=== PATIENT | female | born 1935 | race Caucasian/White ===

== ENCOUNTER 2024-08-11 11:37 | Inpatient (IN) | payer MEDICARE, SELFPAY ==
[2024-08-11] VITALS (14 sets, daily range): BP systolic 127–167; BP diastolic 55–85; PULSE 105–117; RESP 17–27; TEMP 37.1–37.4; O2SAT 92–96; BMI 37.4
--- NOTE | ~2024-08-11 | CT_ITS ---
CT soft tissue neck wo con Ordering provider: Dea Cornejo NP History: 89 years Female with . Neck pain and SOB . Comparison: None. Technique: CT soft tissues neck was performed without contrast. . Automated exposure control and ite rative reconstruction technique were employed. The dose-length product was 593.80 mGy-cm. Findings: LOWER HEAD: The visualized brain parenchyma, optic globes/orbits and mastoids are normal. Left maxi llary and left ethmoid sinus disease. Otherwise, The visualized paranasal sinuses are well aerated. SALIVARY GLANDS: Normal. THYROID: Normal. SUPRAHYOID DEEP SPACES: Small parapharyngeal lymph nodes are noted. The CAROTID ARTERIES: Bilateral carotid atherosclerotic changes. JUGULAR VEINS: Normal. TONSILS: Normal. ORAL CAVITY: normal as visualized. PHARYNX, LARYNX AND TRACHEA: Patent and normal. No prevertebral soft tissue swelling. SUPERFICIAL SOFT TISSUES: Normal. No lymphadenopathy or neck mass. THORACIC INLET/VISUALIZED UPPER CHEST: Tracheomalacia and bronchomalacia is noted. Bilateral Pleural effusion with adjacent atelectasis. Infiltrate in the right upper lobe posteriorly. Possible nodule o r atelectasis versus pneumonia in the left apical area. 3 months follow-up advised. Right paratrachea l lymph node is seen measuring 1.5 cm. SKELETAL: Age appropriate degenerative changes superior with narrowing of the disc spaces at all leve ls. Multilevel facet joint disease. IMPRESSION: 1. Bilateral pleural effusion with adjacent atelectasis versus pneumonia. 2. Pneumonia in the right upper lobe posteriorly. 3. Lymphadenopathy in the mediastinum. 4. Severe degenerative changes of the spine. 5. Sinusitis in the left maxillary and ethmoid sinuses. 6. Atherosclerotic changes of the carotid arteries. 7. Tracheomalacia and bronchomalacia. Reviewed, dictated and finalized at location A. PORTER
--- NOTE | ~2024-08-11 | XR_ITS ---
EXAMINATION: XR chest 1V portable DATE: 08/16/2024 09:54 INDICATION: Shortness of breath. TECHNIQUE: A single frontal view of the chest was obtained. COMPARISON: Chest 2 views 08/11/2024 FINDINGS: The patient is rotated to her left. There is a diffuse interstitial pattern in the lungs. T here are airspace opacities in the mid and lower lung zones. No pleural effusion or pneumothorax. The heart size is normal. IMPRESSION: 1. Worsened diffuse lung disease, consistent with pulmonary edema versus pneumonia. Reviewed, dictated and finalized at location A. RITY ANALYST IMPRESSION: 1. Worsened diffuse lung disease, consistent with pulmonary edema versus pneumo jason.
--- NOTE | ~2024-08-11 | XR_ITS ---
XR chest 1V portable 08/17/2024 08:39 Indication: RSV pneumonia Procedure: AP portable chest Comparison: 08/16/2024 and 08/11/2024 Findings: Diffuse bilateral interstitial infiltrates with peribronchial thickening, improved compared with 08/16/2024, likely edema. No significant effusion. No pneumothorax. There are deformities of jose luis th shoulders, likely related to prior trauma and/or advanced degenerative change. Impression: 1: Improved bilateral interstitial infiltrates, likely edema. Reviewed, dictated and finalized at location B. SERVICE AGENT Impression: 1: Improved bilateral interstitial infiltrates, likely edema.
--- NOTE | ~2024-08-11 | XR_ITS ---
EXAMINATION: XR chest 2V DATE: 08/11/2024 15:32 INDICATION: Cough. Dyspnea. TECHNIQUE: Frontal and lateral views of the chest were obtained. COMPARISON: None. FINDINGS: There are airspace opacities in the mid and lower lung zones. No pleural effusion or pneumo thorax. The heart size is normal. 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 IMPRESSION: 1. Airspace opacities in the mid and lower lung zones, consistent with atelectasis versus pneumonia v ersus chronic lung disease. Reviewed, dictated and finalized at location A. NICAL OPERATIONS VICE PRESIDENT IMPRESSION: 1. Airspace opacities in the mid and lower lung zones, consistent with atelecta sis versus pneumonia versus chronic lung disease.
--- NOTE | 2024-08-11 15:02 | ECG_ITS ---
Test Date: 2024-08-11 19:44:08 Measurements Intervals Herod Rate: 102 P: 68 OH: 162 QRS: 22 QRSD: 75 T: 55 QT: 320 QTc: 418 Interpretive Statements SINUS TACHYCARDIA WITH OCCASIONAL VENTRICULAR PREMATURE COMPLEXES WITH OCCASIONAL SUPRAVENTRICULAR PREMATURE COMPLEXES LOW QRS VOLTAGE IN PRECORDIAL LEADS [QRS DEFLECTION < 1.0 mV IN CHEST LEADS] MODERATE ST DEPRESSION [0.05+ mV ST DEPRESSION] No previous ECG available for comparison Electronically Signed On 08-15-2024 17:49:09 [employer] SCI[employer] by Joyce Arevalo M.D.
--- NOTE | 2024-08-11 15:02 | ED_ITS ---
HPI - URI/Sore Throat General Chief Complaint: Upper Respiratory Infection <Genesis Cruz PA-C - Last Filed: 08/11/24 15:03> Stated Complaint: all over crud <Genesis Cruz PA-C - Last Filed: 08/11/24 15:03> Time Seen by Provider: 08/11/24 18:28 <Genesis Cruz PA-C - Last Filed: 08/11/24 15:03> Focused HPI: 89-year-old female presents with her for cough, congestion and generalized malaise for 2 weeks. Patient went to her PCPs office today was found to be febrile and was advised to come to the ER for further evaluation. She is reporting a nonproductive cough for 2 weeks but it did become productive yesterday. She has not taken any antipyretics prior to arrival. She denies chest pain, shortness of breath, abdominal pain, nausea vomiting or diarrhea. She is reporting dysuria. Also states she is having lower extremity edema but is unsure if it is a change from her baseline. GENERAL: Ill-appearing, well-nourished, and in no acute distress. HEAD: Normocephalic, atraumatic. CHEST: Wheezing throughout all lung marinelli, no respiratory distress. Satting 95% on room air. 3+ pitting edema bilateral lower extremities, Ariel wraps applied to lower legs HEART: Regular rate and rhythm.? NEURO: ?Alert and oriented x3. Patient screened in triage and initial orders placed.? ?Additional care and disposition to be based upon?diagnostic testing and treatment. <Genesis Cruz PA-C - Last Filed: 08/11/24 15:03> History of Present Illness HPI Narrative: Agree with the HPI above <Chato Dhaliwal MD - Last Filed: 08/11/24 19:58> Related Data Home Medications: Home Medications ?Medication ?Instructions ?Recorded ?Confirmed ?Last Taken ?Type cholecalciferol (vitamin D3) 250 250 mcg PO DAILY 06/04/23 06/13/24 Unknown History mcg (10,000 unit) capsule coQ10 (ubiquinol) 100 mg capsule 200 mg PO BID 06/04/23 06/13/24 Unknown History (Qunol Rick CoQ10) hydrochlorothiazide 25 mg tablet 25 mg PO DAILY 06/04/23 06/13/24 Unknown History metoprolol succinate 25 mg 25 mg PO DAILY 06/04/23 06/13/24 Unknown History tablet,extended release 24 hr potassium chloride 10 mEq 10 meq PO DAILY 06/04/23 06/13/24 Unknown History capsule,extended release pravastatin 80 mg tablet 80 mg PO QHS 06/04/23 06/13/24 Unknown History vitamin E (dl, acetate) 180 mg 180 mg PO DAILY 06/04/23 06/13/24 Unknown History (400 unit) capsule coenzyme [id number] lipoic acid-vit 2 cap PO DAILY 12/08/23 06/13/24 Unknown History E 30 mg-50 mg-100 unit capsule (Q-GEL with Alpha Lipoic Acid) alpha lipoic acid 100 mg capsule 100 mg PO DAILY 06/13/24 06/13/24 Unknown History mecobalamin (vitamin B12) 1 tablet PO .every other day 06/13/24 06/13/24 Unknown History <Genesis Cruz PA-C - Last Filed: 08/11/24 15:03> Allergies/Adverse Reactions: Allergies Allergy/AdvReac Type Severity Reaction Status Date / Time lidocaine (From Xylocaine) Allergy Severe Unresponsiv Verified 08/11/24 11:43 e <Genesis Cruz PA-C - Last Filed: 08/11/24 15:03> Review of Systems 2 Review of Systems: as reviewed above in HPI <Chato Dhaliwal MD - Last Filed: 08/11/24 19:58> [facility] Past Medical History Medical History: Medical History Hyperlipidemia Hypertension Thyroid disorder Stroke Arthritis Diabetes Allergies <Genesis Cruz PA-C - Last Filed: 08/11/24 15:03> Surgical History Surgical History: Surgical History History of cataract surgery (~2020) History of section History of back surgery <Genesis Cruz PA-C - Last Filed: 08/11/24 15:03> Family History Family History: Family History Father Heart disease Hypertension Other Diabetes mellitus <Genesis Cruz PA-C - Last Filed: 08/11/24 15:03> Social History Social History: Social History Smoking status: Never smoker Alcohol intake: never Substance use: never Do You Feel Safe in your Home?: Yes Lack of Transportation: No Lack of Food: Never True Current Housing: I Have Housing Concerned About Future Housing: No Difficulty Paying Gas/Electric Bills: No Difficulty Paying for Meds: No Currently Unemployed: No Education: Bachelor's Degree Difficulty w/ Childcare or Family Care: No <Genesis Cruz PA-C - Last Filed: 08/11/24 15:03> Exam 2 Narrative: GENERAL: Ill-appearing, productive cough throughout the examination, well- developed, answers all questions appropriately HEAD: [Normocephalic, atraumatic.] EYES: [PERRLA and EOMI.] ENT: Nares clear, no rhinorrhea or epistaxis. Mucous membranes dry. NECK: Supple. CHEST: coarse bilateral breath sounds in the bases, some tachypnea noted, no accessory muscle use respiratory distress, coughing actively. HEART: [Regular rate and rhythm]. No murmur heard. [Normal peripheral pulses.] ABDOMEN: [Soft, nondistended], [nontender], [No rigidity or guarding] EXTREMITIES: Normal range of motion. 2+ pitting edema SKIN: Warm, dry, no rash. NEURO: [No focal deficits]. Alert and oriented [x3.] PSYCH: [Normal mood and affect.] <Chato Dhaliwal MD - Last Filed: 08/11/24 19:58> Course Vital Signs Vital signs: Vital Signs Temperature 37.2 C 08/11/24 11:40 Pulse Rate 117 H 08/11/24 11:40 Respiratory Rate 22 H 08/11/24 11:40 Blood Pressure 141/64 H 08/11/24 11:40 Pulse Oximetry 95 08/11/24 11:40 Oxygen Delivery Room Air 08/11/24 11:40 Temperature 37.4 C 08/11/24 18:40 Pulse Rate 107 H 08/11/24 18:40 Respiratory Rate 20 08/11/24 18:40 Blood Pressure 167/85 H 08/11/24 18:40 Pulse Oximetry 94 08/11/24 18:40 Oxygen Delivery Room Air 08/11/24 18:40 <Genesis Cruz PA-C - Last Filed: 08/11/24 15:03> Vital Signs Temperature 37.2 C 08/11/24 11:40 Pulse Rate 117 H 08/11/24 11:40 Respiratory Rate 22 H 08/11/24 11:40 Blood Pressure 141/64 H 08/11/24 11:40 Pulse Oximetry 95 08/11/24 11:40 Oxygen Delivery Room Air 08/11/24 11:40 Temperature 37.4 C 08/11/24 18:40 Pulse Rate 107 H 08/11/24 18:40 Respiratory Rate 20 08/11/24 18:40 Blood Pressure 167/85 H 08/11/24 18:40 Pulse Oximetry 94 08/11/24 18:40 Oxygen Delivery Room Air 08/11/24 18:40 <Chato Dhaliwal MD - Last Filed: 08/11/24 19:58> MDM - URI/Sore Throat MDM Narrative Medical decision making narrative: 89-year-old female presenting from her primary care provider's office for concerns of a upper respiratory tract infection versus pneumonia. Patient has been having a nonproductive cough for last 2 weeks and then a productive cough for last 2 days associated with congestion, fever, hypoxia in the office. Patient was noted to be febrile 101.9? F at her PCPs office and hypoxic to 88% consistently. She is afebrile here at 37.4? C slightly tachycardic with pulse of 117 and tachypneic at 22. Blood pressure within normal limits 141/64. Presently she is saturating well on room air but does have very coarse breath sounds in the bilateral bases and some tachypnea. Concern presently is for pneumonia given her history, COVID flu or influenza given the season and recent exposure to sick contacts at her household. workup was ordered including two- view chest x-ray, CBC, CMC, BNP, EKG, COVID fluid RSV swabs. I independently reviewed patient's chest x-ray and I do see bilateral airspace opacities which likely represent pneumonia in her clinical setting. She was started on Rocephin and doxycycline for community-acquired pneumonia given her lack of exposures to the healthcare system and low drip score. She was given a fluid bolus for hydration. Reassess frequently. Patient requires admission to the hospital after completion workup. BNP came back elevated 4500, no history of heart failure, will obtain echocardiogram on inpatient basis. leukocytosis of 12.3, hemoglobin 11.2, normal platelets. Electrolyte panel largely within normal limits, normal renal function panel. Glucose slightly elevated 212, lipase 67. COVID fluid RSV swabs came back positive for RSV. EKG was independently reviewed and shows sinus tachycardia with no acute ST segment elevations or depressions concerning for ischemia. I discussed the case with the inpatient hospitalist Dr. Strange who [facility] continued treatment of her pneumonia and RSV as well as further evaluation including blood cultures as she does meet sepsis criteria. 2D echocardiogram also obtained. Patient was evaluated frequently and had improvement her heart rate and tachypnea. Not requiring any oxygen and was not hypoxic throughout her ED visit. <Chato Dhaliwal MD - Last Filed: 08/11/24 19:58> Differential Diagnosis Differential diagnosis: Likely upper respiratory infection, viral infection, bronchitis, influenza and other <Chato Dhaliwal MD - Last Filed: 08/11/24 19:58> Medical Records Attestation: I reviewed the patient's medical records. <Chato Dhaliwal MD - Last Filed: 08/11/24 19:58> Lab Data Attestation: I reviewed the patient's lab results. <Chato Dhaliwal MD - Last Filed: 08/11/24 19:58> Result diagrams: 08/11/24 18:23 08/11/24 18:23 <Genesis Cruz PA-C - Last Filed: 08/11/24 15:03> Labs: Lab Results 08/11/24 Range/Units 18:23 WBC 12.3 H (4.5-10.0) K/mm3 RBC 3.46 L (4.2-5.4) M/mm3 Hgb 11.2 L (12.0-15.0) g/dL Hct 33.2 L (37.0-47.0) % MCV 96.0 (80-100) fl MCH 32.4 (26-34) pg MCHC 33.7 (32-36) g/dl RDW 13.4 (11.5-14.5) % Plt Count 259 (150-375) k/mm3 MPV 10.4 (7.4-10.4) fl Immature Gran % (Auto) Not Reportable Neut % (Auto) Not Reportable Lymph % (Auto) Not Reportable Pratt % (Auto) Not Reportable Eos % (Auto) Not Reportable Baso % (Auto) Not Reportable Lymph # (Auto) Not Reportable Pratt # (Auto) Not Reportable Eos # (Auto) Not Reportable Baso # (Auto) Not Reportable Abs Immat Gran (auto) Not Reportable Absolute Neuts (auto) Not Reportable Absolute Nucleated RBC Not Reportable Total Counted 100 Neutrophils % (Manual) 73 (46-73) % Band Neutrophils % 5 (0-6) % Lymphocytes % (Manual) 13 L (18-44) % Monocytes % (Manual) 8 (3-9) % Metamyelocytes % 1 % Nucleated RBC % Not Reportable Abs Neuts (Manual) 9.59 H (1.7-7.2) K/mm3 Abs Lymphs (Manual) 1.59 (1.1-4.5) K/mm3 Abs Monocytes (Manual) 0.98 H (0.1-0.90) K/mm3 Platelet Estimate Adequate (Adequate) Schistocytes None seen Sodium 133 L (137-145) mmol/L Potassium 3.7 (3.4-5.0) mmol/L Chloride 100 (98-107) mmol/L Carbon Dioxide 28 (22-30) mmol/L Anion Gap 5 (4-12) mmol/L BUN 23 H (7-17) mg/dL Creatinine 0.80 (0.7-1.0) mg/dL Estim Creat Clear Calc 39 ml/min Estimated GFR > 60 (59 - ) Glucose 212 H (65-110) mg/dL Calcium 9.1 (8.4-10.2) mg/dL Total Bilirubin 0.7 (0.2-1.3) mg/dL AST 25 (14-36) U/L ALT 19 (6-35) U/L Alkaline Phosphatase 95 (38-126) U/L NT-Pro-B Natriuret Pep 4250 H (19.9-100) pg/mL Total Protein 7.0 (6.3-8.2) g/dL Albumin 3.8 (3.5-5.1) g/dL Lipase 67 (23-300) U/L Influenza A (RT-PCR) Negative (Negative) Influenza B (RT-PCR) Negative (Negative) RSV (RT-PCR) Positive A (Negative) SARS-CoV-2 RNA (RT-PCR) Negative (Negative) <Genesis Cruz PA-C - Last Filed: 08/11/24 15:03> Lab Results 08/11/24 Range/Units 18:23 WBC 12.3 H (4.5-10.0) K/mm3 RBC 3.46 L (4.2-5.4) M/mm3 Hgb 11.2 L (12.0-15.0) g/dL Hct 33.2 L (37.0-47.0) % MCV 96.0 (80-100) fl MCH 32.4 (26-34) pg MCHC 33.7 (32-36) g/dl RDW 13.4 (11.5-14.5) % Plt Count 259 (150-375) k/mm3 MPV 10.4 (7.4-10.4) fl Immature Gran % (Auto) Not Reportable Neut % (Auto) Not Reportable Lymph % (Auto) Not Reportable Pratt % (Auto) Not Reportable Eos % (Auto) Not Reportable Baso % (Auto) Not Reportable Lymph # (Auto) Not Reportable Pratt # (Auto) Not Reportable Eos # (Auto) Not Reportable Baso # (Auto) Not Reportable Abs Immat Gran (auto) Not Reportable Absolute Neuts (auto) Not Reportable Absolute Nucleated RBC Not Reportable Total Counted 100 Neutrophils % (Manual) 73 (46-73) % Band Neutrophils % 5 (0-6) % Lymphocytes % (Manual) 13 L (18-44) % Monocytes % (Manual) 8 (3-9) % Metamyelocytes % 1 % Nucleated RBC % Not Reportable Abs Neuts (Manual) 9.59 H (1.7-7.2) K/mm3 Abs Lymphs (Manual) 1.59 (1.1-4.5) K/mm3 Abs Monocytes (Manual) 0.98 H (0.1-0.90) K/mm3 Platelet Estimate Adequate (Adequate) Schistocytes None seen Sodium 133 L (137-145) mmol/L Potassium 3.7 (3.4-5.0) mmol/L Chloride 100 (98-107) mmol/L Carbon Dioxide 28 (22-30) mmol/L Anion Gap 5 (4-12) mmol/L BUN 23 H (7-17) mg/dL Creatinine 0.80 (0.7-1.0) mg/dL Estim Creat Clear Calc 39 ml/min Estimated GFR > 60 (59 - ) Glucose 212 H (65-110) mg/dL Calcium 9.1 (8.4-10.2) mg/dL Total Bilirubin 0.7 (0.2-1.3) mg/dL AST 25 (14-36) U/L ALT 19 (6-35) U/L Alkaline Phosphatase 95 (38-126) U/L NT-Pro-B Natriuret Pep 4250 H (19.9-100) pg/mL Total Protein 7.0 (6.3-8.2) g/dL Albumin 3.8 (3.5-5.1) g/dL Lipase 67 (23-300) U/L Influenza A (RT-PCR) Negative (Negative) Influenza B (RT-PCR) Negative (Negative) RSV (RT-PCR) Positive A (Negative) SARS-CoV-2 RNA (RT-PCR) Negative (Negative) <Chato Dhaliwal MD - Last Filed: 08/11/24 19:58> Imaging Data Attestation: I personally reviewed and interpreted this imaging study as follows: < Chato Dhaliwal MD - Last Filed: 08/11/24 19:58> My impression: Impressions Chest X-Ray 08/11/24 15:32 IMPRESSION: 1. Airspace opacities in the mid and lower lung zones, consistent with atelectasis versus pneumonia versus chronic lung disease. <Chato Dhaliwal MD - Last Filed: 08/11/24 19:58> Critical Care Time Critical Care Time Critical Care Time: Yes <Chato Dhaliwal MD - Last Filed: 08/11/24 19:58> Total Critical Care Time: 40 <Chato Dhaliwal MD - Last Filed: 08/11/24 19:58> Discharge Plan Discharge Clinical Impression: Community acquired pneumonia, Respiratory syncytial virus (RSV), Elevated brain natriuretic peptide (BNP) level <Genesis Cruz PA-C - Last Filed: 08/11/24 15:03> Patient Disposition: Still a Patient <Genesis Cruz PA-C - Last Filed: 08/11/24 15:03> Condition: Stable <Genesis Cruz PA-C - Last Filed: 08/11/24 15:03> Patient Language: Namibian <Genesis Cruz PA-C - Last Filed: 08/11/24 15:03> Prescriptions: No Action metoprolol succinate 25 mg tablet extended release 24 hr 25 mg PO DAILY pravastatin 80 mg tablet 80 mg PO QHS hydrochlorothiazide 25 mg tablet 25 mg PO DAILY potassium chloride 10 mEq capsule, extended release 10 meq PO DAILY coQ10 (ubiquinol) [Qunol Rick CoQ10] 100 mg capsule 200 mg PO BID cholecalciferol (vitamin D3) 250 mcg (10,000 unit) capsule 250 mcg PO DAILY vitamin E (dl, acetate) 180 mg (400 unit) capsule 180 mg PO DAILY Q-GEL with Alpha Lipoic Acid 30-50-100 mg-mg-unit capsule 2 cap PO DAILY mecobalamin (vitamin B12) 1 tablet PO .every other day alpha lipoic acid 100 mg capsule 100 mg PO DAILY (DME) OneTouch Verio test strips Strip See Rx Instructions .Route Qty: 100 4RF Rx Instructions: To check gluose three times daily pioglitazone 45 mg tablet 45 mg PO DAILY Qty: 90 1RF levothyroxine 25 mcg tablet 25 mcg PO DAILY Qty: 90 1RF <Genesis Cruz PA-C - Last Filed: 08/11/24 15:03> Follow-up/Referrals: Antoine Belle DO [Primary Care Provider] - <Genesis Cruz PA-C - Last Filed: 08/11/24 15:03> Time of Disposition: 19:58 <Genesis Cruz PA-C - Last Filed: 08/11/24 15:03> 19:58 <Chato Dhaliwal MD - Last Filed: 08/11/24 19:58>
[2024-08-11 18:29] LABS: Hematocrit 33.2 % (37.0-47.0); Hemoglobin 11.2 g/dL (12.0-15.0); Mean Corpuscular HGB Conc 33.7 g/dl (32-36); Mean Corpuscular Hemoglobin 32.4 pg (26-34); Mean Platelet Volume 10.4 fl (7.4-10.4); Platelet Count Result 259 k/mm3 (150-375); Red Blood Count 3.46 M/mm3 (4.2-5.4); Red Cell Distribution Width 13.4 % (11.5-14.5); White Blood Count 12.3 K/mm3 (4.5-10.0)
[2024-08-11 18:42] LABS: Alanine Aminotransferase 19 U/L (6-35); Albumin Level 3.8 g/dL (3.5-5.1); Alkaline Phosphatase 95 U/L (38-126); Anion Gap 5 mmol/L (4-12); Aspartate Amino Transferase 25 U/L (14-36); Bilirubin,Total 0.7 mg/dL (0.2-1.3); Blood Urea Nitrogen 23 mg/dL (7-17); Calcium 9.1 mg/dL (8.4-10.2); Carbon Dioxide 28 mmol/L (22-30); Chloride 100 mmol/L (98-107); Estimated CRCL calculation 39 ml/min; Estimated Glomerular Filt Rate > 60; Glucose 212 mg/dL (65-110); Lipase 67 U/L (23-300); Potassium 3.7 mmol/L (3.4-5.0); Sodium 133 mmol/L (137-145)
[2024-08-11 18:44] LABS: Band Neutrophils Percent 5 % (0-6); Lymphocytes Absolute Manual 1.59 K/mm3 (1.1-4.5); Lymphocytes Percent Manual 13 % (18-44); Metamyelocytes Percent 1 %; Monocytes Absolute Manual 0.98 K/mm3 (0.1-0.90); Monocytes Percent Manual 8 % (3-9); Neutrophils Absolute Manual 9.59 K/mm3 (1.7-7.2); Neutrophils Percent Manual 73 % (46-73); Platelet Estimate Adequate (Adequate); Total Cells Counted 100
[2024-08-11 18:45] LABS: Schistocytes None Seen
[2024-08-11 18:57] LABS: NT Pro B Type Natriuretic Pept 4250 pg/mL (19.9-100)
[2024-08-11] MEDS: LACTATED RINGERS 1,000 ML 999 ML IV CONT (19:03)
[2024-08-11] MEDS: cefTRIAXone 2 GM/NS 100 ML 2 GM/100 ML BAG IVPB (19:04)
[2024-08-11 19:05] LABS: Influenza A QL RT-PCR Negative (Negative); Influenza B QL RT-PCR Negative (Negative); RSV RNA, RT-PCR Positive (Negative); SARS-CoV-2 RNA PCR Negative (Negative)
[2024-08-11] MEDS: DOXYCYCLINE 100 MG/NS 100 ML 100 MG/100 ML BAG IVPB (19:45)
--- NOTE | 2024-08-11 22:38 | PM.IMHP ---
H&P: HPI History of Present Illness Date/Time: 08/11/24 22:38 Chief Complaint: Fever, low oxygen her saturation Narrative: 89-year-old female with a past medical history essential hypertension, hypothyroidism due to thyroidectomy from thyroid cancer, diabetes and CVA among other medical conditions who presented to the from primary care physician's office due to fever and and low oxygen saturations The patient is only oriented to her name and the fact that she is in the hospital. She is unable to provide significant medical history. Her helps fries some medical history but is also only a fair historian. The patient has been having cough for 10-14 days. She has not had worsening cough and worsening confusion. It sounds like the patient has intermittent confusion at baseline and but has better recall of her long-term memories and poor short-term memory. However denies history of dementia. He also reports that the patient has chronic lower extremity swelling in he uses a combination of various compression devices on her lower extremities help with the edema. He denies a known history of heart failure in states that her lower extremity edema is due to her hypertension. He states that they were around his son approximately 14 days ago after which time there son and grandson came down with a viral illness. The patient's came down ill a couple of days later. Since she has been ill she has become more confused. Her cough is gotten progressively worse. She did have a low-grade temperature at home and was directed to come to the ER by her primary care provider. By the time she arrived to the ER temperature was 101.9?. She did not receive any antipyretics at home. She has had decreased appetite. Patient does have chronic urinary incontinence in usually wears 2 incontinence products to maintain cleanliness at home. Review of Systems Review of Systems: Review of systems was limited due to the patient's confusion. [facility] Past Medical History Medical History (Updated 08/12/24 @ 08:49 by Chanda Strange DO) Thyroid cancer B12 deficiency Hyperlipidemia Hypertension Stroke Arthritis Diabetes Allergies Surgical History Surgical History (Updated 08/11/24 @ 22:43 by Chanda Strange DO) History of thyroidectomy History of cataract surgery (~2020) History of section History of back surgery Family History Family History Father Heart disease Hypertension Other Diabetes mellitus Social History Social History (Updated 08/12/24 @ 08:51 by Chanda Strange, ) Social History: The patient lives with her of 67 years. They raised 5 sons. The patient was a homemaker and artist. The she is a lifelong nonsmoker and does not drink alcohol or use illicit substances. She ambulates with a walker. Code status: Full code Surrogate decision maker: Matt Dillard () Smoking status: Never smoker Alcohol intake: never Substance use: never Substance use type: does not use Do You Feel Safe in your Home?: Yes Lack of Transportation: No Lack of Food: Never True Current Housing: I Have Housing Concerned About Future Housing: No Difficulty Paying Gas/Electric Bills: No Difficulty Paying for Meds: No Currently Unemployed: No Education: Bachelor's Degree Difficulty w/ Childcare or Family Care: No Spiritual care concerns: No Meds Home Medications and Allergies Home Medications ?Medication ?Instructions ?Recorded ?Confirmed ?Type cholecalciferol (vitamin D3) 250 250 mcg PO DAILY 06/04/23 08/11/24 History mcg (10,000 unit) capsule coQ10 (ubiquinol) 100 mg capsule 200 mg PO BID 06/04/23 08/11/24 History (Qunol Rick CoQ10) hydrochlorothiazide 25 mg tablet 25 mg PO DAILY 06/04/23 08/11/24 History metoprolol succinate 25 mg 25 mg PO DAILY 06/04/23 08/11/24 History tablet,extended release 24 hr potassium chloride 10 mEq 10 meq PO DAILY 06/04/23 08/11/24 History capsule,extended release pravastatin 80 mg tablet 80 mg PO QHS 06/04/23 08/11/24 History vitamin E (dl, acetate) 180 mg 180 mg PO DAILY 06/04/23 08/11/24 History (400 unit) capsule coenzyme I29-[id number] lipoic acid-vit 2 cap PO DAILY 12/08/23 08/11/24 History E 30 mg-50 mg-100 unit capsule (Q-GEL with Alpha Lipoic Acid) pioglitazone 45 mg tablet 45 mg PO DAILY #90 tabs 05/24/24 08/11/24 Rx levothyroxine 25 mcg tablet 25 mcg PO DAILY #90 tabs 06/01/24 08/11/24 Rx alpha lipoic acid 100 mg capsule 100 mg PO DAILY 06/13/24 08/11/24 History mecobalamin (vitamin B12) 1 tablet PO .every other day 06/13/24 08/11/24 History Allergies Allergy/AdvReac Type Severity Reaction Status Date / Time lidocaine (From Xylocaine) Allergy Severe Unresponsiv Verified 08/11/24 11:43 e Vital Signs Vital Signs - 24 hr 08/11/24 11:40 08/11/24 15:02 08/11/24 18:40 Temperature 98.9 F 99 F Pulse Rate 117 H 106 H Respiratory Rate 22 H Blood Pressure 141/64 H 128/55 L Pulse Oximetry 95 92 Oxygen Delivery Room Air Room Air Oxygen Flow Rate 08/11/24 18:40 08/11/24 19:02 08/11/24 20:00 Temperature 99.3 F Pulse Rate 107 H 113 H 105 H Respiratory Rate 20 22 H 27 H Blood Pressure 167/85 H 152/77 H Pulse Oximetry 94 92 95 Oxygen Delivery Oxygen Flow Rate 08/11/24 20:02 08/11/24 20:15 08/11/24 20:30 Temperature Pulse Rate 106 H 114 H 111 H Respiratory Rate 26 H 19 26 H Blood Pressure 133/62 Pulse Oximetry 93 Oxygen Delivery Oxygen Flow Rate 08/11/24 21:02 08/11/24 21:30 08/11/24 22:00 Temperature Pulse Rate 109 H 112 H 108 H Respiratory Rate 17 27 H 24 H Blood Pressure 141/60 H Pulse Oximetry 92 93 92 Oxygen Delivery Oxygen Flow Rate 08/11/24 22:36 Temperature Pulse Rate Respiratory Rate Blood Pressure Pulse Oximetry 94 Oxygen Delivery Nasal Cannula Oxygen Flow Rate 2 Exam Narrative: Weight 81.8 kg BMI 35.2 Const: Other: Acutely ill-appearing, obese, elderly, debilitated HENMT: Other: Dry mucous membranes, upper and lower dentures in place, crowded posterior oropharynx Eyes: Other: Positive conjunctival pallor, evidence of bilateral lens implants, extraocular movements intact Neck: Other: Large neck circumference, no JVD, trachea midline Resp: Other: Shallow respirations, decreased breath sounds at the bases, tachypnea Cardio: Other: Sinus tachycardia heart rates in the low 100s, 2+ bilateral radial pedal pulses, no obvious murmur GI: Other: Obese, distended, nontender, positive bowel sounds : Other: Incontinent of urine, pure wick catheter in place Skin: Other: Generalized pallor, non jaundice, no petechia, no foot wounds Neuro: Other: Patient is alert oriented to name and place, confused as to the month and the year, unable to provide meaningful medical history, recognizes her , has fair recall of distant events, follow simple commands, no localizing neurologic deficits noted but exam limited due to patient condition and confusion Extrem: Other: 1+ pitting edema up through the calves bilaterally, 4/5 education coordinator strength bilaterally Psych: Other: Pleasantly confused, cooperative, anxious H&P: Results Labs Labs: Laboratory Tests 08/11/24 18:23 08/11/24 18:23 08/11/24 18:23 WBC 12.3 H RBC 3.46 L Hgb 11.2 L Hct 33.2 L MCV 96.0 MCH 32.4 MCHC 33.7 RDW 13.4 Plt Count 259 MPV 10.4 Immature Gran % (Auto) Not Reportable Neut % (Auto) Not Reportable Lymph % (Auto) Not Reportable [place] % (Auto) Not Reportable Eos % (Auto) Not Reportable Baso % (Auto) Not Reportable Lymph # (Auto) Not Reportable [place] # (Auto) Not Reportable Eos # (Auto) Not Reportable Baso # (Auto) Not Reportable Abs Immat Gran (auto) Not Reportable Absolute Neuts (auto) Not Reportable Absolute Nucleated RBC Not Reportable Total Counted 100 Neutrophils % (Manual) 73 Band Neutrophils % 5 Lymphocytes % (Manual) 13 L Monocytes % (Manual) 8 Metamyelocytes % 1 Nucleated RBC % Not Reportable Abs Neuts (Manual) 9.59 H Abs Lymphs (Manual) 1.59 Abs Monocytes (Manual) 0.98 H Platelet Estimate Adequate Schistocytes None seen Sodium 133 L Potassium 3.7 Chloride 100 Carbon Dioxide 28 Anion Gap 5 BUN 23 H Creatinine 0.80 Estim Creat Clear Calc 39 Estimated GFR > 60 Glucose 212 H Calcium 9.1 Total Bilirubin 0.7 AST 25 ALT 19 Alkaline Phosphatase 95 NT-Pro-B Natriuret Pep 4250 H Total Protein 7.0 Albumin 3.8 Lipase 67 Influenza A (RT-PCR) Negative Influenza B (RT-PCR) Negative RSV (RT-PCR) Positive A SARS-CoV-2 RNA (RT-PCR) Negative Impressions Chest X-Ray 08/11/24 15:32 IMPRESSION: 1. Airspace opacities in the mid and lower lung zones, consistent with atelectasis versus pneumonia versus chronic lung disease. EKG: Sinus tachycardia rate 102 occasional ventricular premature complexes occasional supraventricular premature complexes low-voltage QRS in precordial leads EKG read per the machine states ST depression but this is not appreciated at the time of my review appears more due to artifact he QTC is 418 All imaging and EKGs personally reviewed and interpreted. And unless stated otherwise agree with radiologic and cardiology interpretation. Assessment and Plan Assessment and plan (1) Respiratory syncytial virus (RSV): Qualifiers: RSV infection type: pneumonia Qualified Code(s): J12.1 - Respiratory syncytial virus pneumonia Code(s): B33.8 - Other specified viral diseases Status: Acute (2) Sepsis: Qualifiers: Acute respiratory failure type: with hypoxia Sepsis acute organ dysfunction status: with acute organ dysfunction Sepsis type: sepsis due to unspecified organism Severe sepsis acute organ dysfunction type: acute respiratory failure Severe sepsis shock status: without septic shock Qualified Code(s): A41.9 - Sepsis, unspecified organism; R65.20 - Severe sepsis without septic shock; J96.01 - Acute respiratory failure with hypoxia Code(s): A41.9 - Sepsis, unspecified organism Status: Acute (3) Community acquired pneumonia: Qualifiers: Laterality: unspecified laterality Qualified Code(s): J18.9 - Pneumonia, unspecified organism Code(s): J18.9 - Pneumonia, unspecified organism Status: Acute (4) Acute hypoxic respiratory failure: Code(s): J96.01 - Acute respiratory failure with hypoxia Status: Acute (5) Elevated brain natriuretic peptide (BNP) level: Code(s): R79.89 - Other specified abnormal findings of blood chemistry Status: Acute (6) Memory loss, short term: Code(s): R41.3 - Other amnesia Status: Acute Plan Sepsis criteria met with tachycardia, tachypnea, fever and leukocytosis in the setting of bilateral pneumonia due to RSV. Concomitant bacterial pneumonia cannot be ruled out although somewhat less likely given duration of patient's symptoms. Blood cultures have been obtained and are pending. Patient was started empiric antibiotic therapy with Rocephin and doxycycline in the ER. Will continue antibiotic therapy. Will repeat CBC and electrolyte panel in a.m.. Patient does have acute hypoxic respiratory failure with sats of 80% outpatient but was satting okay in the ER. She must have developed recurrent hypoxia after admission although nursing staff did not document recurrent hypoxia. Patient is now on 2 L nasal cannula. Will wean this as tolerated. The patient does have x-ray findings that could be consistent with pneumonia versus CHF. She did receive 1 L fluid bolus in the ER but will not continue fluids at this time.. Will obtain echocardiogram to further evaluate cardiac structure and function. Patient has been admitted as observation status. Quality VTE Prophylaxis VTE prophylaxis: pharmacologic ordered (Lovenox 40 mg subq day.) Hospitalist [facility] Advance Care Plan I have confirmed that the patient's Advanced Care Plan is present, code status is documented, or surrogate decision maker is listed in patient medical record.: Yes Medication Reconciliation I have utilized all available resources to obtain, update and review the patients current medications (includes all prescriptions, OTC, herbals, cannabis, and nutritional supplements).: Yes
--- NOTE | 2024-08-11 22:45 | ADMGEN ---
This patient, Yonatan Bardales, was admitted to Medical Room 246-01. Patient/family oriented to hospital policies and general routines including ID bracelet, bed and alarms, visiting hours, pain management, procedures, bathroom and other care routines, personal items, smoking policy, room service/diet, and visiting hours. Information on how to activate the Rapid Response Team has been discussed. Patient/Family are encouraged to report perceived risks to care and to ask questions if they do not understand what they are told or what they should do.
[2024-08-12] VITALS (14 sets, daily range): BP systolic 109–135; BP diastolic 44–54; PULSE 94–112; RESP 18–20; TEMP 36.9–37; O2SAT 93–95
[2024-08-12] MEDS: ACETAMINOPHEN 325 MG TABLET 650 MG PO (02:34)
[2024-08-12] MEDS: LEVOTHYROXINE SODIUM 25 MCG TABLET PO (06:03)
[2024-08-12 06:22] LABS: Hematocrit 31.2 % (37.0-47.0); Hemoglobin 10.3 g/dL (12.0-15.0); Mean Corpuscular Hemoglobin 31.9 pg (26-34); Mean Corpuscular Volume 96.6 fl (80-100); Mean Platelet Volume 10.6 fl (7.4-10.4); Platelet Count Result 252 k/mm3 (150-375); Red Blood Count 3.23 M/mm3 (4.2-5.4); Red Cell Distribution Width 13.4 % (11.5-14.5); White Blood Count 11.3 K/mm3 (4.5-10.0)
[2024-08-12 06:33] LABS: Anion Gap 2 mmol/L (4-12); Blood Urea Nitrogen 22 mg/dL (7-17); Calcium 8.6 mg/dL (8.4-10.2); Carbon Dioxide 27 mmol/L (22-30); Chloride 103 mmol/L (98-107); Estimated CRCL calculation 40 ml/min; Estimated Glomerular Filt Rate > 60; Glucose 171 mg/dL (65-110); Potassium 3.5 mmol/L (3.4-5.0); Sodium 132 mmol/L (137-145)
[2024-08-12 07:13] LABS: Band Neutrophils Percent 13 % (0-6); Lymphocytes Percent Manual 8 % (18-44); Monocytes Absolute Manual 0.33 K/mm3 (0.1-0.90); Monocytes Percent Manual 3 % (3-9); Neutrophils Absolute Manual 10.05 K/mm3 (1.7-7.2); Neutrophils Percent Manual 76 % (46-73); Platelet Estimate Adequate (Adequate); Schistocytes None Seen; Total Cells Counted 100
[2024-08-12] MEDS: IPRATROPIUM 0.5 MG/ALBUTEROL SULFATE 2.5 MG AMPUL.NEB 3 ML INHALATION ×3 (07:28→20:54)
[2024-08-12 08:40] LABS: Glucose Point of Care 157 mg/dl (65-105)
--- NOTE | 2024-08-12 09:24 | PCPTNOTE ---
Patient's states eating is more important than physical therapy and wants her to finish eating even though she has had the tray for over 45 minutes. Let nursing know patient is coughing a lot with her scrambled eggs and may need a swallow evaluation.
[2024-08-12] MEDS: DOXYCYCLINE 100 MG/NS 100 ML 100 MG/100 ML BAG IVPB ×2 (09:31→21:34)
[2024-08-12] MEDS: CHOLECALCIFEROL 5,000 UNITS TABLET 10000 UNITS BY MOUTH (09:38)
[2024-08-12] MEDS: POTASSIUM CHLORIDE 10 MEQ ER TABLET PO (09:38)
[2024-08-12] MEDS: ENOXAPARIN 40 MG/0.4 ML SYRINGE SUB-Q (09:38)
[2024-08-12] MEDS: guaiFENesin 12 HR 600 MG TABCR 1200 MG PO ×2 (09:38→21:34)
[2024-08-12] MEDS: PIOGLITAZONE HCL 45 MG TABLET PO (09:39)
[2024-08-12] MEDS: METOPROLOL SUCCINATE EXT REL 25 MG TABCR PO (09:39)
[2024-08-12] MEDS: VITAMIN E 400 UNIT CAPSULE PO (09:39)
[2024-08-12 12:39] LABS: Glucose Point of Care 160 mg/dl (65-105)
--- NOTE | 2024-08-12 13:00 | P.PNIM_ITS ---
Progress Note: A&P Assessment and Plan (1) Respiratory syncytial virus (RSV): Qualifiers: RSV infection type: pneumonia Qualified Code(s): J12.1 - Respiratory syncytial virus pneumonia Code(s): B33.8 - Other specified viral diseases Status: Acute Assessment and Plan: * Continue supportive care (2) Community acquired pneumonia: Qualifiers: Laterality: unspecified laterality Qualified Code(s): J18.9 - Pneumonia, unspecified organism Code(s): J18.9 - Pneumonia, unspecified organism Status: Acute Assessment and Plan: * Likely RSV but cannot exclude secondary bacterial infection * Continue azithromycin and ceftriaxone (3) Acute hypoxic respiratory failure: Code(s): J96.01 - Acute respiratory failure with hypoxia Status: Acute Assessment and Plan: * Continue oxygen and wean as possible (4) Elevated brain natriuretic peptide (BNP) level: Code(s): R79.89 - Other specified abnormal findings of blood chemistry Status: Acute Assessment and Plan: * With edema pulmonary infiltrates and hypoxia but no cardiac history * 08/12/2024 echocardiogram pending (5) Memory loss, short term: Code(s): R41.3 - Other amnesia Status: Acute Assessment and Plan: * Consistent with early dementia (6) Sepsis: Qualifiers: Sepsis type: sepsis due to unspecified organism Sepsis acute organ dysfunction status: with acute organ dysfunction Severe sepsis acute organ dysfunction type: acute respiratory failure Acute respiratory failure type: with hypoxia Severe sepsis shock status: without septic shock Qualified Code(s): A41.9 - Sepsis, unspecified organism; R65.20 - Severe sepsis without septic shock; J96.01 - Acute respiratory failure with hypoxia Code(s): A41.9 - Sepsis, unspecified organism Status: Acute Assessment and Plan: * 08/12/2024 resolved. (7) Diabetes: Qualifiers: Diabetes mellitus type: type 2 Diabetes mellitus salvage determiner insulin use: without shelter use Diabetes mellitus complication status: without complication Qualified Code(s): E11.9 - Type 2 diabetes mellitus without complications Code(s): E11.9 - Type 2 diabetes mellitus without complications Status: Acute Assessment and Plan: * Home regimen is patio glute his own which is a bit concerning given her edema and morbid obesity * Pending echo results consider switch to SGLT2 inhibitor * Continue to monitor sugars on diabetic diet * 08/12 FBS 157 Subjective Date/time seen: 08/12/24 13:00 Interval history: Feeling better. Tolerated diet. Denied pain. Short of breath with any exertion. Still with some swelling in her legs. No GI or complaints. No focal weakness. Review of Systems Review of Systems: All systems reviewed & are unremarkable except as noted in HPI and below Exam Narrative: HEENT: PERRL, sclerae nonicteric, pharyngeal mucosa pink and intact NECK: No JVD CHEST: Mildly tachypneic. Coarse breath sounds throughout. Few scattered crackles right anterior and bilateral lower lobes. HEART: NL S1/S2, regular, no murmur ABDOMEN: BS+, soft, nontender, no mass, no bruits EXTREMITIES: 1+ pitting edema of ankles NEUROLOGIC: CN intact and symmetric to inspection. MUSCULOSKELETAL: Tone and strength symmetric. PSYCH: Alert. Oriented to person, place, but not to time. Objective Data Vital Signs Vital Signs: Vital Signs - 24 hr 08/11/24 15:02 08/11/24 18:40 08/11/24 18:40 Temperature 99 F 99.3 F Pulse Rate 106 H 107 H Respiratory Rate 20 Blood Pressure 128/55 L 167/85 H Pulse Oximetry 92 94 Oxygen Delivery Room Air Oxygen Flow Rate Fraction of Inspired Oxygen 08/11/24 19:02 08/11/24 20:00 08/11/24 20:02 Temperature Pulse Rate 113 H 105 H 106 H Respiratory Rate 22 H 27 H 26 H Blood Pressure 152/77 H 133/62 Pulse Oximetry 92 95 Oxygen Delivery Oxygen Flow Rate Fraction of Inspired Oxygen 08/11/24 20:15 08/11/24 20:30 08/11/24 21:02 Temperature Pulse Rate 114 H 111 H 109 H Respiratory Rate 19 26 H 17 Blood Pressure Pulse Oximetry 93 92 Oxygen Delivery Oxygen Flow Rate Fraction of Inspired Oxygen 08/11/24 21:30 08/11/24 22:00 08/11/24 22:36 Temperature Pulse Rate 112 H 108 H Respiratory Rate 27 H 24 H Blood Pressure 141/60 H Pulse Oximetry 93 92 94 Oxygen Delivery Nasal Cannula Oxygen Flow Rate 2 Fraction of Inspired Oxygen 08/11/24 23:14 08/11/24 23:35 08/12/24 00:00 Temperature 98.8 F Pulse Rate 114 H 114 H 112 H Respiratory Rate 18 18 Blood Pressure 127/56 L Pulse Oximetry 96 96 Oxygen Delivery Nasal Cannula Oxygen Flow Rate 2 Fraction of Inspired Oxygen 08/12/24 04:00 08/12/24 06:00 08/12/24 07:28 Temperature 98.5 F Pulse Rate 111 H 105 H Respiratory Rate 18 Blood Pressure 109/44 L Pulse Oximetry 93 93 Oxygen Delivery Nasal Cannula Oxygen Flow Rate 1 Fraction of Inspired Oxygen 24 08/12/24 07:28 08/12/24 08:03 08/12/24 08:03 Temperature Pulse Rate 102 H 95 Respiratory Rate 20 18 Blood Pressure Pulse Oximetry 93 Oxygen Delivery Nasal Cannula Oxygen Flow Rate 2 Fraction of Inspired Oxygen 08/12/24 09:39 08/12/24 10:35 Temperature Pulse Rate 105 H 101 H Respiratory Rate 20 Blood Pressure Pulse Oximetry Oxygen Delivery Oxygen Flow Rate Fraction of Inspired Oxygen Intake/Output Intake/Output: Intake & Output 08/09/24 08/10/24 08/11/24 08/12/24 23:59 23:59 23:59 23:59 Intake Total 1200 0 Output Total 200 Balance 1200 -200 Meds/Results Medications: Active Medications Generic Name Dose Route Start Last Admin Trade Name Freq PRN Reason Stop Dose Admin Acetaminophen 650 mg 08/11/24 19:48 08/12/24 02:34 Acetaminophen 325 Mg Tablet PO 650 mg Q4H PRN Administration Mild Pain (1-3) or Fever Albuterol/Ipratropium 3 ml 08/12/24 08:00 08/12/24 07:28 Ipratropium 0.5 Mg/Albuterol Sulfate 2.5 Mg Ampul.Neb 3 Ml INHALATION 3 ml Q6HRT KEL Administration Dextrose 12.5 gm 08/12/24 00:50 Dextrose 50% 25 Gm/50 Ml Syringe IV PUSH PRN PRN Hypoglycemia Protocol Enoxaparin Sodium 40 mg 08/12/24 09:00 08/12/24 09:38 Enoxaparin 40 Mg/0.4 Ml Syringe SUB-Q 40 mg DAILY KEL Administration Glucagon 1 mg 08/12/24 00:50 Glucagon For Inj 1 Mg Vial IM PRN PRN Hypoglycemia Protocol Glucose 15 gm 08/12/24 00:50 Glucose Oral Gel 15 Gm Of Glucse In 37.5 Gm Tube PO PRN PRN Hypoglycemia Protocol Guaifenesin 1,200 mg 08/12/24 09:00 08/12/24 09:38 Guaifenesin 12 Hr 600 Mg Tabcr PO 1,200 mg Q12HR KEL Administration Ceftriaxone Sodium 1 gm in 50 mls @ 100 mls/hr 08/12/24 18:00 Rocephin 1 Gm/Ns 50 Ml IVPB Q24H KEL Doxycycline Hyclate 100 mg in 100 mls @ 100 mls/hr 08/12/24 09:00 08/12/24 09:31 Vibramycin 100 Mg/Ns 100 Ml IVPB 100 mls/hr Q12H KEL Administration Dextrose 1,000 mls @ 100 mls/hr 08/12/24 00:50 Dextrose 5% 1,000 Ml IVPB PRN PRN Hypoglycemia Protocol Insulin Aspart 3 - 6 units 08/12/24 08:00 08/12/24 12:23 Insulin Aspart (*Bkc) 100 Units/Ml SUB-Q Not Given TIDWM [facility] Protocol Insulin Aspart 1 - 3 units 08/12/24 21:00 Insulin Aspart (*Bkc) 100 Units/Ml SUB-Q HS [facility] Protocol Levothyroxine Sodium 25 mcg 08/12/24 06:30 08/12/24 06:03 Levothyroxine Sodium 25 Mcg Tablet PO 25 mcg DAILY@0630 KEL Administration Melatonin 3 mg 08/12/24 21:00 Melatonin 3 Mg Tablet PO HS [facility] Metoprolol Succinate 25 mg 08/12/24 09:00 08/12/24 09:39 Metoprolol Succinate Ext Rel 25 Mg Tabcr PO 25 mg DAILY KEL Administration Non-Formulary Medication 1 each 08/12/24 01:47 Nonformulary Nutritional Supplement XX 08/13/24 01:46 PRN PRN PROTOCOL Ondansetron HCl 4 mg 08/11/24 19:48 Ondansetron Inj 4 Mg/2 Ml Vial IV PUSH Q4H PRN Nausea Perflutren Lipid Microsphere 0 ml 08/11/24 19:55 Perflutren Lipid Microspheres 1.5 Ml Vial Diluted To 10 Ml Total Volume IV PUSH 08/14/24 19:55 ONCE PRN adequate visualization Protocol Pioglitazone HCl 45 mg 08/12/24 09:00 08/12/24 09:39 Pioglitazone Hcl 45 Mg Tablet PO 45 mg DAILY KEL Administration Potassium Chloride 10 meq 08/12/24 09:00 08/12/24 09:38 Potassium Chloride 10 Meq Er Tablet PO 10 meq DAILY KEL Administration Pravastatin Sodium 80 mg 08/12/24 21:00 Pravastatin Sodium 20 Mg Tablet PO QHS [facility] Vitamin D 10,000 units 08/12/24 09:00 08/12/24 09:38 Cholecalciferol 5,000 Units Tablet BY MOUTH 10,000 units DAILY [facility] Administration Vitamin E 400 unit 08/12/24 09:00 08/12/24 09:39 Vitamin E 400 Unit Capsule PO 400 unit DAILY KEL Administration Radiology Results: ITS Impressions Chest X-Ray 08/11/24 15:32 IMPRESSION: 1. Airspace opacities in the mid and lower lung zones, consistent with atelectasis versus pneumonia versus chronic lung disease. Labs Labs: Laboratory Results - last 24 hr 08/11/24 08/12/24 08/12/24 18:23 06:04 08:30 WBC 12.3 H 11.3 H RBC 3.46 L 3.23 L Hgb 11.2 L 10.3 L Hct 33.2 L 31.2 L MCV 96.0 96.6 MCH 32.4 31.9 MCHC 33.7 33.0 RDW 13.4 13.4 Plt Count 259 252 MPV 10.4 10.6 H Immature Gran % (Auto) Not Reportable Not Reportable Neut % (Auto) Not Reportable Not Reportable Lymph % (Auto) Not Reportable Not Reportable [place] % (Auto) Not Reportable Not Reportable Eos % (Auto) Not Reportable Not Reportable Baso % (Auto) Not Reportable Not Reportable Lymph # (Auto) Not Reportable Not Reportable [place] # (Auto) Not Reportable Not Reportable Eos # (Auto) Not Reportable Not Reportable Baso # (Auto) Not Reportable Not Reportable Abs Immat Gran (auto) Not Reportable Not Reportable Absolute Neuts (auto) Not Reportable Not Reportable Absolute Nucleated RBC Not Reportable Not Reportable Total Counted 100 100 Neutrophils % (Manual) 73 76 H Band Neutrophils % 5 13 H Lymphocytes % (Manual) 13 L 8 L Monocytes % (Manual) 8 3 Metamyelocytes % 1 Nucleated RBC % Not Reportable Not Reportable Abs Neuts (Manual) 9.59 H 10.05 H Abs Lymphs (Manual) 1.59 0.90 L Abs Monocytes (Manual) 0.98 H 0.33 Platelet Estimate Adequate Adequate Schistocytes None seen None seen Sodium 133 L 132 L Potassium 3.7 3.5 Chloride 100 103 Carbon Dioxide 28 27 Anion Gap 5 2 L BUN 23 H 22 H Creatinine 0.80 0.80 Estim Creat Clear Calc 39 40 Estimated GFR > 60 > 60 Glucose 212 H 171 H POC Capillary Glucose 157 H Calcium 9.1 8.6 Total Bilirubin 0.7 AST 25 ALT 19 Alkaline Phosphatase 95 NT-Pro-B Natriuret Pep 4250 H Total Protein 7.0 Albumin 3.8 Lipase 67 Influenza A (RT-PCR) Negative Influenza B (RT-PCR) Negative RSV (RT-PCR) Positive A SARS-CoV-2 RNA (RT-PCR) Negative 08/12/24 12:34 WBC RBC Hgb Hct MCV MCH MCHC RDW Plt Count MPV Immature Gran % (Auto) Neut % (Auto) Lymph % (Auto) [place] % (Auto) Eos % (Auto) Baso % (Auto) Lymph # (Auto) [place] # (Auto) Eos # (Auto) Baso # (Auto) Abs Immat Gran (auto) Absolute Neuts (auto) Absolute Nucleated RBC Total Counted Neutrophils % (Manual) Band Neutrophils % Lymphocytes % (Manual) Monocytes % (Manual) Metamyelocytes % Nucleated RBC % Abs Neuts (Manual) Abs Lymphs (Manual) Abs Monocytes (Manual) Platelet Estimate Schistocytes Sodium Potassium Chloride Carbon Dioxide Anion Gap BUN Creatinine Estim Creat Clear Calc Estimated GFR Glucose POC Capillary Glucose 160 H Calcium Total Bilirubin AST ALT Alkaline Phosphatase NT-Pro-B Natriuret Pep Total Protein Albumin Lipase Influenza A (RT-PCR) Influenza B (RT-PCR) RSV (RT-PCR) SARS-CoV-2 RNA (RT-PCR) Hospitalist MIPS Advance Care Plan I have confirmed that the patient's Advanced Care Plan is present, code status is documented, or surrogate decision maker is listed in patient medical record.: Yes
[2024-08-12 17:20] LABS: Glucose Point of Care 186 mg/dl (65-105)
[2024-08-12 21:08] LABS: Glucose Point of Care 166 mg/dl (65-105)
[2024-08-12] MEDS: PRAVASTATIN SODIUM 20 MG TABLET 80 MG PO (21:32)
[2024-08-12] MEDS: MELATONIN 3 MG TABLET PO (21:32)
[2024-08-13] VITALS (15 sets, daily range): BP systolic 116–133; BP diastolic 51–60; PULSE 94–115; RESP 18–24; TEMP 36.4–36.9; O2SAT 93–96
[2024-08-13] MEDS: IPRATROPIUM 0.5 MG/ALBUTEROL SULFATE 2.5 MG AMPUL.NEB 3 ML INHALATION ×4 (02:15→22:13)
[2024-08-13] MEDS: LEVOTHYROXINE SODIUM 25 MCG TABLET PO (06:05)
[2024-08-13 06:58] LABS: Anion Gap 6 mmol/L (4-12); Blood Urea Nitrogen 22 mg/dL (7-17); Calcium 8.8 mg/dL (8.4-10.2); Carbon Dioxide 24 mmol/L (22-30); Chloride 101 mmol/L (98-107); Estimated CRCL calculation 46 ml/min; Estimated Glomerular Filt Rate > 60; Glucose 142 mg/dL (65-110); Potassium 4.7 mmol/L (3.4-5.0); Sodium 131 mmol/L (137-145)
[2024-08-13 08:04] LABS: Glucose Point of Care 160 mg/dl (65-105)
[2024-08-13 08:35] LABS: Magnesium 1.8 mg/dL (1.6-2.3)
[2024-08-13] MEDS: PIOGLITAZONE HCL 45 MG TABLET PO (08:53)
[2024-08-13] MEDS: ENOXAPARIN 40 MG/0.4 ML SYRINGE SUB-Q (08:53)
[2024-08-13] MEDS: METOPROLOL SUCCINATE EXT REL 25 MG TABCR PO (08:53)
[2024-08-13] MEDS: DOXYCYCLINE 100 MG/NS 100 ML 100 MG/100 ML BAG IVPB ×2 (08:53→20:00)
[2024-08-13] MEDS: VITAMIN E 400 UNIT CAPSULE PO (08:53)
[2024-08-13] MEDS: CHOLECALCIFEROL 5,000 UNITS TABLET 10000 UNITS BY MOUTH (08:54)
[2024-08-13] MEDS: guaiFENesin 12 HR 600 MG TABCR 1200 MG PO ×2 (08:54→21:35)
[2024-08-13] MEDS: POTASSIUM CHLORIDE 10 MEQ ER TABLET PO (08:54)
--- NOTE | 2024-08-13 08:58 | PCPTNOTE ---
at 808 getting breathing treatment with RT, physical therapy will attempt again as time allows.
[2024-08-13 09:39] LABS: Hematocrit 29.1 % (37.0-47.0); Hemoglobin 9.8 g/dL (12.0-15.0); Mean Corpuscular HGB Conc 33.7 g/dl (32-36); Mean Corpuscular Hemoglobin 32.1 pg (26-34); Mean Corpuscular Volume 95.4 fl (80-100); Mean Platelet Volume 10.2 fl (7.4-10.4); Platelet Count Result 278 k/mm3 (150-375); Red Blood Count 3.05 M/mm3 (4.2-5.4); Red Cell Distribution Width 13.6 % (11.5-14.5); White Blood Count 12.7 K/mm3 (4.5-10.0)
[2024-08-13 10:17] LABS: Band Neutrophils Percent 13 % (0-6); Lymphocytes Absolute Manual 0.12 K/mm3 (1.1-4.5); Lymphocytes Percent Manual 1 % (18-44); Monocytes Absolute Manual 0.63 K/mm3 (0.1-0.90); Monocytes Percent Manual 5 % (3-9); Neutrophils Absolute Manual 2.03 K/mm3 (1.7-7.2); Neutrophils Percent Manual 3 % (46-73); Platelet Estimate Adequate (Adequate); Total Cells Counted 100
[2024-08-13 10:18] LABS: Schistocytes None Seen
[2024-08-13] MEDS: hydroCHLOROthiazide 25 MG TABLET PO (10:21)
--- NOTE | 2024-08-13 11:02 | P.PNIM_ITS ---
Progress Note: A&P Assessment and Plan (1) Respiratory syncytial virus (RSV): Qualifiers: RSV infection type: pneumonia Qualified Code(s): J12.1 - Respiratory syncytial virus pneumonia Code(s): B33.8 - Other specified viral diseases Status: Acute Assessment and Plan: * Continue supportive care (2) Community acquired pneumonia: Qualifiers: Laterality: unspecified laterality Qualified Code(s): J18.9 - Pneumonia, unspecified organism Code(s): J18.9 - Pneumonia, unspecified organism Status: Acute Assessment and Plan: * Likely RSV but cannot exclude secondary bacterial infection * Continue azithromycin and ceftriaxone * Duoneb q 6. * Guaifenesin 1,200 mg PO q 12. * incentive spirometer. * PT/OT (3) Acute hypoxic respiratory failure: Code(s): J96.01 - Acute respiratory failure with hypoxia Status: Acute Assessment and Plan: * Continue oxygen and wean as possible (4) Elevated brain natriuretic peptide (BNP) level: Code(s): R79.89 - Other specified abnormal findings of blood chemistry Status: Acute Assessment and Plan: * With edema pulmonary infiltrates and hypoxia but no cardiac history * 08/12/2024 echocardiogram ordered. (5) Memory loss, short term: Code(s): R41.3 - Other amnesia Status: Acute Assessment and Plan: * Consistent with early dementia (6) Sepsis: Qualifiers: Sepsis type: sepsis due to unspecified organism Sepsis acute organ dysfunction status: with acute organ dysfunction Severe sepsis acute organ dysfunction type: acute respiratory failure Acute respiratory failure type: with hypoxia Severe sepsis shock status: without septic shock Qualified Code(s): A41.9 - Sepsis, unspecified organism; R65.20 - Severe sepsis without septic shock; J96.01 - Acute respiratory failure with hypoxia Code(s): A41.9 - Sepsis, unspecified organism Status: Acute Assessment and Plan: * 08/12/2024 resolved. (7) Diabetes: Qualifiers: Diabetes mellitus type: type 2 Diabetes mellitus residential insulin use: without residential use Diabetes mellitus complication status: without complication Qualified Code(s): E11.9 - Type 2 diabetes mellitus without complications Code(s): E11.9 - Type 2 diabetes mellitus without complications Status: Acute Assessment and Plan: * Home regimen is patio glute his own which is a bit concerning given her edema and morbid obesity * Pending echo results consider switch to SGLT2 inhibitor * Continue to monitor sugars on diabetic diet * 08/13 FBS 160 Subjective Date/time seen: 08/13/24 11:02 Interval history: Patient lying in bed with head of bed elevated. at bedside. Patient denies chest pain, palpitations, headache, dizziness, nausea, or vomiting. Patient reports shortness of breath with activity. Review of Systems Review of Systems: All systems reviewed & are unremarkable except as noted in HPI and below Exam Const: General: no acute distress Eyes: Sclera: sclerae normal Resp: Auscultation: wheezes expiratory wheezes and diminished lung sounds Cardio: Rate: regular rate Rhythm: regular rhythm GI: GI Palp: Yes Soft to palpation Auscultation: normal bowel sounds Neuro: Speech: normal speech Extrem: General: pedal edema bilaterally 1+ Psych: Affect: normal affect Other: Alert. Oriented to person, place, but not to time. Objective Data Vital Signs Vital Signs: Vital Signs - 24 hr 08/12/24 12:02 08/12/24 13:49 08/12/24 14:00 Temperature Pulse Rate 98 98 104 H Respiratory Rate 20 20 Blood Pressure Pulse Oximetry Oxygen Delivery Oxygen Flow Rate Fraction of Inspired Oxygen 08/12/24 14:00 08/12/24 20:00 08/12/24 20:55 Temperature 98.6 F Pulse Rate 101 H 94 103 H Respiratory Rate 18 18 20 Blood Pressure 126/54 L Pulse Oximetry 94 95 Oxygen Delivery Nasal Cannula Oxygen Flow Rate 2 Fraction of Inspired Oxygen 24 08/12/24 20:56 08/12/24 21:51 08/13/24 02:15 Temperature 98.4 F Pulse Rate 103 H 94 103 H Respiratory Rate 18 20 Blood Pressure 135/52 L Pulse Oximetry 95 95 Oxygen Delivery Nasal Cannula Oxygen Flow Rate 2 Fraction of Inspired Oxygen 08/13/24 02:25 08/13/24 06:00 08/13/24 07:56 Temperature 98 F Pulse Rate 103 H 104 H Respiratory Rate 20 18 Blood Pressure 133/60 Pulse Oximetry 96 93 Oxygen Delivery Nasal Cannula Oxygen Flow Rate 2 Fraction of Inspired Oxygen 08/13/24 07:56 08/13/24 08:05 08/13/24 08:53 Temperature Pulse Rate 100 104 H 104 H Respiratory Rate 20 20 Blood Pressure Pulse Oximetry Oxygen Delivery Oxygen Flow Rate Fraction of Inspired Oxygen Intake/Output Intake/Output: Intake & Output 08/10/24 08/11/24 08/12/24 08/13/24 23:59 23:59 23:59 23:59 Intake Total 7238 071 0184 Output Total 800 400 Balance 1200 -550 1220 Meds/Results Medications: Active Medications Generic Name Dose Route Start Last Admin Trade Name Freq PRN Reason Stop Dose Admin Acetaminophen 650 mg 08/11/24 19:48 08/12/24 02:34 Acetaminophen 325 Mg Tablet PO 650 mg Q4H PRN Administration Mild Pain (1-3) or Fever Albuterol/Ipratropium 3 ml 08/12/24 08:00 08/13/24 07:55 Ipratropium 0.5 Mg/Albuterol Sulfate 2.5 Mg Ampul.Neb 3 Ml INHALATION 3 ml Q6HRT KEL Administration Dextrose 12.5 gm 08/12/24 00:50 Dextrose 50% 25 Gm/50 Ml Syringe IV PUSH PRN PRN Hypoglycemia Protocol Enoxaparin Sodium 40 mg 08/12/24 09:00 08/13/24 08:53 Enoxaparin 40 Mg/0.4 Ml Syringe SUB-Q 40 mg DAILY KEL Administration Glucagon 1 mg 08/12/24 00:50 Glucagon For Inj 1 Mg Vial IM PRN PRN Hypoglycemia Protocol Glucose 15 gm 08/12/24 00:50 Glucose Oral Gel 15 Gm Of Glucse In 37.5 Gm Tube PO PRN PRN Hypoglycemia Protocol Guaifenesin 1,200 mg 08/12/24 09:00 08/13/24 08:54 Guaifenesin 12 Hr 600 Mg Tabcr PO 1,200 mg Q12HR KEL Administration Hydrochlorothiazide 25 mg 08/13/24 09:30 08/13/24 10:21 Hydrochlorothiazide 25 Mg Tablet PO 25 mg DAILY KEL Administration Ceftriaxone Sodium 1 gm in 50 mls @ 100 mls/hr 08/12/24 18:00 08/12/24 18:24 Rocephin 1 Gm/Ns 50 Ml IVPB Infused Q24H KEL Infusion Doxycycline Hyclate 100 mg in 100 mls @ 100 mls/hr 08/12/24 09:00 08/13/24 08:53 Vibramycin 100 Mg/Ns 100 Ml IVPB 100 mls/hr Q12H KEL Administration Dextrose 1,000 mls @ 100 mls/hr 08/12/24 00:50 Dextrose 5% 1,000 Ml IVPB PRN PRN Hypoglycemia Protocol Insulin Aspart 3 - 6 units 08/12/24 08:00 08/13/24 08:50 Insulin Aspart (*Bkc) 100 Units/Ml SUB-Q Not Given TIDWM KEL Protocol Insulin Aspart 1 - 3 units 08/12/24 21:00 08/12/24 21:34 Insulin Aspart (*Bkc) 100 Units/Ml SUB-Q Not Given HS KEL Protocol Levothyroxine Sodium 25 mcg 08/12/24 06:30 08/13/24 06:05 Levothyroxine Sodium 25 Mcg Tablet PO 25 mcg DAILY@0630 KEL Administration Melatonin 3 mg 08/12/24 21:00 08/12/24 21:32 Melatonin 3 Mg Tablet PO 3 mg HS KEL Administration Metoprolol Succinate 25 mg 08/12/24 09:00 08/13/24 08:53 Metoprolol Succinate Ext Rel 25 Mg Tabcr PO 25 mg DAILY KEL Administration Ondansetron HCl 4 mg 08/11/24 19:48 Ondansetron Inj 4 Mg/2 Ml Vial IV PUSH Q4H PRN Nausea Perflutren Lipid Microsphere 0 ml 08/11/24 19:55 Perflutren Lipid Microspheres 1.5 Ml Vial Diluted To 10 Ml Total Volume IV PUSH 08/14/24 19:55 ONCE PRN adequate visualization Protocol Pioglitazone HCl 45 mg 08/12/24 09:00 08/13/24 08:53 Pioglitazone Hcl 45 Mg Tablet PO 45 mg DAILY KEL Administration Potassium Chloride 10 meq 08/12/24 09:00 08/13/24 08:54 Potassium Chloride 10 Meq Er Tablet PO 10 meq DAILY KEL Administration Pravastatin Sodium 80 mg 08/12/24 21:00 08/12/24 21:32 Pravastatin Sodium 20 Mg Tablet PO 80 mg QHS KEL Administration Vitamin D 10,000 units 08/12/24 09:00 08/13/24 08:54 Cholecalciferol 5,000 Units Tablet BY MOUTH 10,000 units DAILY KEL Administration Vitamin E 400 unit 08/12/24 09:00 08/13/24 08:53 Vitamin E 400 Unit Capsule PO 400 unit DAILY KEL Administration Radiology Results: ITS Impressions Chest X-Ray 08/11/24 15:32 IMPRESSION: 1. Airspace opacities in the mid and lower lung zones, consistent with atelectasis versus pneumonia versus chronic lung disease. Labs Labs: Laboratory Results - last 24 hr 08/12/24 08/12/24 08/12/24 12:34 17:11 21:03 WBC RBC Hgb Hct MCV MCH MCHC RDW Plt Count MPV Immature Gran % (Auto) Neut % (Auto) Lymph % (Auto) [place] % (Auto) Eos % (Auto) Baso % (Auto) Lymph # (Auto) [place] # (Auto) Eos # (Auto) Baso # (Auto) Abs Immat Gran (auto) Absolute Neuts (auto) Absolute Nucleated RBC Total Counted Neutrophils % (Manual) Band Neutrophils % Lymphocytes % (Manual) Monocytes % (Manual) Nucleated RBC % Abs Neuts (Manual) Abs Lymphs (Manual) Abs Monocytes (Manual) Platelet Estimate % Immature Plt Fraction Schistocytes Sodium Potassium Chloride Carbon Dioxide Anion Gap BUN Creatinine Estim Creat Clear Calc Estimated GFR Glucose POC Capillary Glucose 160 H 186 H 166 H Calcium Magnesium 08/13/24 08/13/24 08/13/24 06:05 07:43 09:20 WBC Cancelled 12.7 H RBC Cancelled 3.05 L Hgb Cancelled 9.8 L Hct Cancelled 29.1 L MCV Cancelled 95.4 MCH Cancelled 32.1 MCHC Cancelled 33.7 RDW Cancelled 13.6 Plt Count Cancelled 278 MPV Cancelled 10.2 Immature Gran % (Auto) Cancelled Not Reportable Neut % (Auto) Cancelled Not Reportable Lymph % (Auto) Cancelled Not Reportable [place] % (Auto) Cancelled Not Reportable Eos % (Auto) Cancelled Not Reportable Baso % (Auto) Cancelled Not Reportable Lymph # (Auto) Cancelled Not Reportable [place] # (Auto) Cancelled Not Reportable Eos # (Auto) Cancelled Not Reportable Baso # (Auto) Cancelled Not Reportable Abs Immat Gran (auto) Cancelled Not Reportable Absolute Neuts (auto) Cancelled Not Reportable Absolute Nucleated RBC Cancelled Not Reportable Total Counted 100 Neutrophils % (Manual) 3 L Band Neutrophils % 13 H Lymphocytes % (Manual) 1 L Monocytes % (Manual) 5 Nucleated RBC % Cancelled Not Reportable Abs Neuts (Manual) 2.03 Abs Lymphs (Manual) 0.12 L Abs Monocytes (Manual) 0.63 Platelet Estimate Adequate % Immature Plt Fraction Cancelled Schistocytes None seen Sodium 131 L Potassium 4.7 Chloride 101 Carbon Dioxide 24 Anion Gap 6 BUN 22 H Creatinine 0.70 Estim Creat Clear Calc 46 Estimated GFR > 60 Glucose 142 H POC Capillary Glucose 160 H Calcium 8.8 Magnesium 1.8 Quality VTE Prophylaxis VTE prophylaxis: pharmacologic ordered (Lovenox 40 mg subq day.)
[2024-08-13 13:01] LABS: Glucose Point of Care 195 mg/dl (65-105)
[2024-08-13 17:20] LABS: Glucose Point of Care 159 mg/dl (65-105)
[2024-08-13 17:53] LABS: Iron 30 ug/dL (37-170)
[2024-08-13 18:03] LABS: Percent Iron Saturation 13 % (20-50); TOTAL IRON BINDING CAPACITY 227 ug/dL (261-462)
[2024-08-13 18:40] LABS: Cholesterol 117 mg/dL (0-200); HDL Direct 35 mg/dL; Triglycerides 92 mg/dL (<150)
[2024-08-13 18:52] LABS: LDL Cholesterol Direct 52 mg/dL
[2024-08-13 19:59] LABS: Vitamin B12 > 1000.0 pg/mL (239-931)
[2024-08-13] MEDS: MELATONIN 3 MG TABLET PO (21:35)
[2024-08-13] MEDS: PRAVASTATIN SODIUM 20 MG TABLET 80 MG PO (21:36)
[2024-08-13] MEDS: INSULIN ASPART (*BKC) 100 UNITS/ML SUB-Q (21:43)
[2024-08-13 21:54] LABS: Glucose Point of Care 214 mg/dl (65-105)
[2024-08-13 23:51] LABS: Hemoglobin A1C 7.1 % (<5.7)
[2024-08-14] VITALS (13 sets, daily range): BP systolic 120–132; BP diastolic 47–68; PULSE 87–114; RESP 18–24; TEMP 36.4–37.4; O2SAT 94–96
[2024-08-14] MEDS: IPRATROPIUM 0.5 MG/ALBUTEROL SULFATE 2.5 MG AMPUL.NEB 3 ML INHALATION ×4 (02:12→20:02)
[2024-08-14] MEDS: LEVOTHYROXINE SODIUM 25 MCG TABLET PO (05:21)
[2024-08-14 05:49] LABS: Hematocrit 28.8 % (37.0-47.0); Hemoglobin 9.7 g/dL (12.0-15.0); Mean Corpuscular HGB Conc 33.7 g/dl (32-36); Mean Corpuscular Hemoglobin 32.1 pg (26-34); Mean Corpuscular Volume 95.4 fl (80-100); Mean Platelet Volume 10.3 fl (7.4-10.4); Platelet Count Result 291 k/mm3 (150-375); Red Blood Count 3.02 M/mm3 (4.2-5.4); Red Cell Distribution Width 13.5 % (11.5-14.5); White Blood Count 11.5 K/mm3 (4.5-10.0)
[2024-08-14 06:09] LABS: Alanine Aminotransferase 16 U/L (6-35); Alkaline Phosphatase 75 U/L (38-126); Anion Gap 3 mmol/L (4-12); Aspartate Amino Transferase 24 U/L (14-36); Bilirubin,Total 0.4 mg/dL (0.2-1.3); Blood Urea Nitrogen 22 mg/dL (7-17); Calcium 9.1 mg/dL (8.4-10.2); Carbon Dioxide 28 mmol/L (22-30); Chloride 102 mmol/L (98-107); Estimated CRCL calculation 36 ml/min; Estimated Glomerular Filt Rate 59; Glucose 155 mg/dL (65-110); Potassium 3.3 mmol/L (3.4-5.0); Sodium 133 mmol/L (137-145)
[2024-08-14 06:41] LABS: Band Neutrophils Percent 9 % (0-6); Eosinophils Absolute Manual 0.46 K/mm3 (0.02-0.50); Eosinophils Percent Manual 4 % (0-4); Lymphocytes Absolute Manual 1.15 K/mm3 (1.1-4.5); Lymphocytes Percent Manual 10 % (18-44); Monocytes Absolute Manual 0.23 K/mm3 (0.1-0.90); Monocytes Percent Manual 2 % (3-9); Neutrophils Absolute Manual 9.66 K/mm3 (1.7-7.2); Neutrophils Percent Manual 75 % (46-73); Total Cells Counted 100
[2024-08-14 06:42] LABS: Large Platelets Present; Platelet Clumps Present; Platelet Estimate Adequate (Adequate); Schistocytes None Seen
[2024-08-14 08:30] LABS: Glucose Point of Care 207 mg/dl (65-105)
[2024-08-14] MEDS: guaiFENesin 12 HR 600 MG TABCR 1200 MG PO ×2 (08:54→21:55)
[2024-08-14] MEDS: VITAMIN E 400 UNIT CAPSULE PO (08:54)
[2024-08-14] MEDS: METOPROLOL SUCCINATE EXT REL 25 MG TABCR PO (08:54)
[2024-08-14] MEDS: PIOGLITAZONE HCL 45 MG TABLET PO (08:54)
[2024-08-14] MEDS: POTASSIUM CHLORIDE 10 MEQ ER TABLET PO (08:55)
[2024-08-14] MEDS: hydroCHLOROthiazide 25 MG TABLET PO (08:55)
[2024-08-14] MEDS: CHOLECALCIFEROL 5,000 UNITS TABLET 10000 UNITS BY MOUTH (08:59)
[2024-08-14] MEDS: POTASSIUM CHLORIDE 20 MEQ ER TABLET 40 MEQ PO (09:00)
[2024-08-14] MEDS: INSULIN ASPART (*BKC) 100 UNITS/ML SUB-Q ×2 (09:01→17:30)
[2024-08-14] MEDS: DOXYCYCLINE 100 MG/NS 100 ML 100 MG/100 ML BAG IVPB (09:02)
[2024-08-14] MEDS: ENOXAPARIN 40 MG/0.4 ML SYRINGE SUB-Q (09:03)
[2024-08-14 09:17] LABS: Magnesium 1.8 mg/dL (1.6-2.3)
--- NOTE | 2024-08-14 11:01 | P.PNIM_ITS ---
Progress Note: A&P Assessment and Plan (1) Respiratory syncytial virus (RSV): Qualifiers: RSV infection type: pneumonia Qualified Code(s): J12.1 - Respiratory syncytial virus pneumonia Code(s): B33.8 - Other specified viral diseases Status: Acute Assessment and Plan: * Continue supportive care (2) Community acquired pneumonia: Qualifiers: Laterality: unspecified laterality Qualified Code(s): J18.9 - Pneumonia, unspecified organism Code(s): J18.9 - Pneumonia, unspecified organism Status: Acute Assessment and Plan: * Likely RSV but cannot exclude secondary bacterial infection * Continue Doxycycline and ceftriaxone * Blood culture grew Staphylococcus hominis. * Duoneb q 6. * Guaifenesin 1,200 mg PO q 12. * incentive spirometer. * PT/OT (3) Acute hypoxic respiratory failure: Code(s): J96.01 - Acute respiratory failure with hypoxia Status: Acute Assessment and Plan: * Continue oxygen and wean as possible (4) Elevated brain natriuretic peptide (BNP) level: Code(s): R79.89 - Other specified abnormal findings of blood chemistry Status: Acute Assessment and Plan: * With edema pulmonary infiltrates and hypoxia but no cardiac history * 08/12/2024 echocardiogram ordered. (5) Memory loss, short term: Code(s): R41.3 - Other amnesia Status: Acute Assessment and Plan: * Consistent with early dementia (6) Sepsis: Qualifiers: Sepsis type: sepsis due to unspecified organism Sepsis acute organ dysfunction status: with acute organ dysfunction Severe sepsis acute organ dysfunction type: acute respiratory failure Acute respiratory failure type: with hypoxia Severe sepsis shock status: without septic shock Qualified Code(s): A41.9 - Sepsis, unspecified organism; R65.20 - Severe sepsis without septic shock; J96.01 - Acute respiratory failure with hypoxia Code(s): A41.9 - Sepsis, unspecified organism Status: Acute Assessment and Plan: * 08/12/2024 resolved. (7) Diabetes: Qualifiers: Diabetes mellitus type: type 2 Diabetes mellitus mcfp insulin use: without mcfp use Diabetes mellitus complication status: without complication Qualified Code(s): E11.9 - Type 2 diabetes mellitus without complications Code(s): E11.9 - Type 2 diabetes mellitus without complications Status: Acute Assessment and Plan: * Home regimen is patio glute his own which is a bit concerning given her edema and morbid obesity * Pending echo results consider switch to SGLT2 inhibitor * Continue to monitor sugars on diabetic diet * / FBS 200 (8) Iron deficiency anemia: Code(s): D50.9 - Iron deficiency anemia, unspecified Status: Acute Assessment and Plan: * H&H 9.7/28.8, Iron 30, TIBC 227, % saturation 13. Clumped large platelets present. * Hematology consult. * Monitor labs. Subjective Date/time seen: 08/14/24 11:01 Interval history: Patient sitting up in bed. Patient reports coughing up yellow phlegm. Patient with shortness of breath at times. Patient denies chest pain, palpitations, headache, dizziness, nausea, or vomiting. at the bedside. Review of Systems Review of Systems: All systems reviewed & are unremarkable except as noted in HPI and below Exam Const: General: comfortable and no acute distress Eyes: Sclera: sclerae normal Resp: Auscultation: diminished lung sounds GI: GI Palp: Yes Soft to palpation Auscultation: normal bowel sounds Other: obese Skin: General skin exam: no rashes or lesions noted Extrem: General: pedal edema bilaterally 1+ Psych: Affect: normal affect Other: Oriented to person, place, but not to time. Objective Data Vital Signs Vital Signs: Vital Signs - 24 hr 08/13/24 14:00 08/13/24 14:56 08/13/24 15:08 Temperature 97.5 F L Pulse Rate 108 H 94 96 Respiratory Rate 20 20 20 Blood Pressure 116/51 L Pulse Oximetry 95 Oxygen Delivery Oxygen Flow Rate Fraction of Inspired Oxygen 08/13/24 20:00 08/13/24 22:00 08/13/24 22:15 Temperature 98.5 F Pulse Rate 100 115 H 100 Respiratory Rate 24 H 22 H 24 H Blood Pressure 123/59 L Pulse Oximetry 95 94 Oxygen Delivery Nasal Cannula Oxygen Flow Rate 2 Fraction of Inspired Oxygen 24 08/13/24 22:16 08/13/24 22:21 08/14/24 02:14 Temperature Pulse Rate 101 H 94 Respiratory Rate 24 H 24 H Blood Pressure Pulse Oximetry 95 Oxygen Delivery Nasal Cannula Oxygen Flow Rate 2 Fraction of Inspired Oxygen 08/14/24 02:25 08/14/24 06:00 08/14/24 07:57 Temperature 99.3 F Pulse Rate 90 114 H Respiratory Rate 24 H 20 Blood Pressure 120/47 L Pulse Oximetry 96 Oxygen Delivery Nasal Cannula Oxygen Flow Rate 2 Fraction of Inspired Oxygen 08/14/24 08:54 Temperature Pulse Rate 114 H Respiratory Rate Blood Pressure Pulse Oximetry Oxygen Delivery Oxygen Flow Rate Fraction of Inspired Oxygen Intake/Output Intake/Output: Intake & Output 08/11/24 08/12/24 08/13/24 08/14/24 23:59 23:59 23:59 23:59 Intake Total 5064 908 1069 490 Output Total 800 1050 750 Balance 1200 -550 1620 -260 Meds/Results Medications: Active Medications Generic Name Dose Route Start Last Admin Trade Name Freq PRN Reason Stop Dose Admin Acetaminophen 650 mg 08/11/24 19:48 08/12/24 02:34 Acetaminophen 325 Mg Tablet PO 650 mg Q4H PRN Administration Mild Pain (1-3) or Fever Albuterol/Ipratropium 3 ml 08/12/24 08:00 08/14/24 07:35 Ipratropium 0.5 Mg/Albuterol Sulfate 2.5 Mg Ampul.Neb 3 Ml INHALATION 3 ml Q6HRT KEL Administration Dextrose 12.5 gm 08/12/24 00:50 Dextrose 50% 25 Gm/50 Ml Syringe IV PUSH PRN PRN Hypoglycemia Protocol Enoxaparin Sodium 40 mg 08/12/24 09:00 08/14/24 09:03 Enoxaparin 40 Mg/0.4 Ml Syringe SUB-Q 40 mg DAILY KEL Administration Glucagon 1 mg 08/12/24 00:50 Glucagon For Inj 1 Mg Vial IM PRN PRN Hypoglycemia Protocol Glucose 15 gm 08/12/24 00:50 Glucose Oral Gel 15 Gm Of Glucse In 37.5 Gm Tube PO PRN PRN Hypoglycemia Protocol Guaifenesin 1,200 mg 08/12/24 09:00 08/14/24 08:54 Guaifenesin 12 Hr 600 Mg Tabcr PO 1,200 mg Q12HR KEL Administration Hydrochlorothiazide 25 mg 08/13/24 09:30 08/14/24 08:55 Hydrochlorothiazide 25 Mg Tablet PO 25 mg DAILY KEL Administration Ceftriaxone Sodium 1 gm in 50 mls @ 100 mls/hr 08/12/24 18:00 08/13/24 21:18 Rocephin 1 Gm/Ns 50 Ml IVPB Infused Q24H KEL Infusion Doxycycline Hyclate 100 mg in 100 mls @ 100 mls/hr 08/12/24 09:00 08/14/24 09:02 Vibramycin 100 Mg/Ns 100 Ml IVPB 100 mls/hr Q12H KEL Administration Dextrose 1,000 mls @ 100 mls/hr 08/12/24 00:50 Dextrose 5% 1,000 Ml IVPB PRN PRN Hypoglycemia Protocol Insulin Aspart 3 - 6 units 08/12/24 08:00 08/14/24 09:01 Insulin Aspart (*Bkc) 100 Units/Ml SUB-Q 3 units TIDWM KEL Administration Protocol Insulin Aspart 1 - 3 units 08/12/24 21:00 08/13/24 21:43 Insulin Aspart (*Bkc) 100 Units/Ml SUB-Q 1 units HS KEL Administration Protocol Levothyroxine Sodium 25 mcg 08/12/24 06:30 08/14/24 05:21 Levothyroxine Sodium 25 Mcg Tablet PO 25 mcg DAILY@0630 KEL Administration Melatonin 3 mg 08/12/24 21:00 08/13/24 21:35 Melatonin 3 Mg Tablet PO 3 mg HS KEL Administration Metoprolol Succinate 25 mg 08/12/24 09:00 08/14/24 08:54 Metoprolol Succinate Ext Rel 25 Mg Tabcr PO 25 mg DAILY KEL Administration Ondansetron HCl 4 mg 08/11/24 19:48 Ondansetron Inj 4 Mg/2 Ml Vial IV PUSH Q4H PRN Nausea Perflutren Lipid Microsphere 0 ml 08/11/24 19:55 Perflutren Lipid Microspheres 1.5 Ml Vial Diluted To 10 Ml Total Volume IV PUSH 08/14/24 19:55 ONCE PRN adequate visualization Protocol Pioglitazone HCl 45 mg 08/12/24 09:00 08/14/24 08:54 Pioglitazone Hcl 45 Mg Tablet PO 45 mg DAILY KEL Administration Potassium Chloride 10 meq 08/12/24 09:00 08/14/24 08:55 Potassium Chloride 10 Meq Er Tablet PO 10 meq DAILY KEL Administration Pravastatin Sodium 80 mg 08/12/24 21:00 08/13/24 21:36 Pravastatin Sodium 20 Mg Tablet PO 80 mg QHS KEL Administration Vitamin D 10,000 units 08/12/24 09:00 08/14/24 08:59 Cholecalciferol 5,000 Units Tablet BY MOUTH 10,000 units DAILY KEL Administration Vitamin E 400 unit 08/12/24 09:00 08/14/24 08:54 Vitamin E 400 Unit Capsule PO 400 unit DAILY KEL Administration Radiology Results: ITS Impressions Chest X-Ray 08/11/24 15:32 IMPRESSION: 1. Airspace opacities in the mid and lower lung zones, consistent with atelectasis versus pneumonia versus chronic lung disease. Labs Labs: Laboratory Results - last 24 hr 08/13/24 08/13/24 08/13/24 06:05 12:55 16:59 WBC RBC Hgb Hct MCV MCH MCHC RDW Plt Count MPV Immature Gran % (Auto) Neut % (Auto) Lymph % (Auto) Ware % (Auto) Eos % (Auto) Baso % (Auto) Lymph # (Auto) Ware # (Auto) Eos # (Auto) Baso # (Auto) Abs Immat Gran (auto) Absolute Neuts (auto) Absolute Nucleated RBC Total Counted Neutrophils % (Manual) Band Neutrophils % Lymphocytes % (Manual) Monocytes % (Manual) Eosinophils % (Manual) Nucleated RBC % Abs Neuts (Manual) Abs Lymphs (Manual) Abs Monocytes (Manual) Absolute Eos (Manual) Platelet Estimate Clumped Platelets Large Platelets Schistocytes Sodium Potassium Chloride Carbon Dioxide Anion Gap BUN Creatinine Estim Creat Clear Calc Estimated GFR Glucose POC Capillary Glucose 195 H 159 H Hemoglobin A1c 7.1 H Calcium Magnesium Iron 30 L TIBC 227 L % Saturation 13 L Ferritin Total Bilirubin AST ALT Alkaline Phosphatase Total Protein Albumin Triglycerides 92 Cholesterol 117 LDL Cholesterol Direct 52 HDL Direct 35 Vitamin B12 > 1000.0 H Folate 4.0 08/13/24 08/14/24 08/14/24 21:09 04:52 08:16 WBC 11.5 H RBC 3.02 L Hgb 9.7 L Hct 28.8 L MCV 95.4 MCH 32.1 MCHC 33.7 RDW 13.5 Plt Count 291 MPV 10.3 Immature Gran % (Auto) Not Reportable Neut % (Auto) Not Reportable Lymph % (Auto) Not Reportable Ware % (Auto) Not Reportable Eos % (Auto) Not Reportable Baso % (Auto) Not Reportable Lymph # (Auto) Not Reportable Ware # (Auto) Not Reportable Eos # (Auto) Not Reportable Baso # (Auto) Not Reportable Abs Immat Gran (auto) Not Reportable Absolute Neuts (auto) Not Reportable Absolute Nucleated RBC Not Reportable Total Counted 100 Neutrophils % (Manual) 75 H Band Neutrophils % 9 H Lymphocytes % (Manual) 10 L Monocytes % (Manual) 2 L Eosinophils % (Manual) 4 Nucleated RBC % Not Reportable Abs Neuts (Manual) 9.66 H Abs Lymphs (Manual) 1.15 Abs Monocytes (Manual) 0.23 Absolute Eos (Manual) 0.46 Platelet Estimate Adequate Clumped Platelets Present Large Platelets Present Schistocytes None seen Sodium 133 L Potassium 3.3 L Chloride 102 Carbon Dioxide 28 Anion Gap 3 L BUN 22 H Creatinine 0.90 Estim Creat Clear Calc 36 Estimated GFR 59 Glucose 155 H POC Capillary Glucose 214 H 207 H Hemoglobin A1c Calcium 9.1 Magnesium 1.8 Iron TIBC % Saturation Ferritin 233.00 Total Bilirubin 0.4 AST 24 ALT 16 Alkaline Phosphatase 75 Total Protein 6.0 L Albumin 3.0 L Triglycerides Cholesterol LDL Cholesterol Direct HDL Direct Vitamin B12 Folate Quality VTE Prophylaxis VTE prophylaxis: pharmacologic ordered (Lovenox 40 mg subq day.)
[2024-08-14 12:00] LABS: Glucose Point of Care 200 mg/dl (65-105)
[2024-08-14 17:06] LABS: Glucose Point of Care 203 mg/dl (65-105)
[2024-08-14 20:10] LABS: Glucose Point of Care 188 mg/dl (65-105)
[2024-08-14] MEDS: MELATONIN 3 MG TABLET PO (21:55)
[2024-08-14] MEDS: DOXYCYCLINE HYCLATE 100 MG TABLET PO (21:55)
[2024-08-14] MEDS: PRAVASTATIN SODIUM 20 MG TABLET 80 MG PO (21:55)
[2024-08-15] VITALS (14 sets, daily range): BP systolic 123–128; BP diastolic 63–66; PULSE 94–114; RESP 18–20; TEMP 36.6–36.8; O2SAT 94–98
--- NOTE | 2024-08-15 | ECHO_ITS ---
Patient Info Name: Yonatan Bardales Age: 89 years : 1935 Gender: Female Ht: 60 in Wt: 189 lbs BSA: 1.95 m2 HR: 98 bpm BP: 127 / 63 mmHg Heart Rhythm: Sinus Rhythm Technical Quality: Fair Exam Date: 08/15/2024 4:08 PM Exam Location: Echo Lab Patient Status: Inpatient Admit Date: 08/13/2024 Staff Ordering Physician: Chato Dhaliwal MD Network/Telecom Engineer: Ethel Gallagher RDCS Attending Provider: Chanda Strange DO Referring Physician: Isra WHYTE; Exam Type: CA echo dop color flow w con Study Info Indications - elevated bnp, fluid overload Complete two-dimensional, color flow and Doppler transthoracic echocardiogram is performed with contrast to opacify the left ventricle and to improve the deliniation of the left ventricle endocardial borders. Contrast/Agitated Saline Contrast/Ag. Saline: Definity Amount: 2.00 ml Administered By: Ethel Gallagher RDCS Existing IV Access: Yes IV Access Condition: patent with no signs of infiltration Summary 1. Technically difficult study with limited views. 2. Left ventricular chamber dimension is normal. 3. Left ventricular systolic function is normal, estimated at 60-65%. 4. There is mildly increased left ventricular wall thickness. 5. The left ventricular diastolic function is grade I diastolic dysfunction. 6. Right ventricular systolic function is normal. 7. Left atrial chamber dimension is mildly enlarged. 8. There is mild tricuspid valve regurgitation. 9. There is trivial pericardial effusion. Left Ventricle Left ventricular chamber dimension is normal. Left ventricular systolic function is normal, estimated at 60-65%. There is mildly increased left ventricular wall thickness. The left ventricular diastolic function is grade I diastolic dysfunction. Right Ventricle Right ventricular chamber dimension is normal. Right ventricular systolic function is normal. Left Atria Left atrial chamber dimension is mildly enlarged. Right Atria Right atrial chamber dimension is normal. Atrial Septum Intact interatrial septum visualized by color flow imaging. Aortic Valve The aortic valve is not well visualized. There is no aortic valve stenosis. There is no aortic valve regurgitation. There is moderate aortic valve calcification. Pulmonic Valve The pulmonic valve is not well visualized. There is no pulmonic regurgitation. Mitral Valve There is trace mitral valve regurgitation. Tricuspid Valve There is mild tricuspid valve regurgitation. Pericardium/Pleural There is trivial pericardial effusion. Inferior Vena Cava Normal inferior vena cava with <50% collapse upon inspiration consistent with elevated right atrial pressure, 8 mmHg. Aorta The aortic root size at the sinus of Valsalva is normal. Left Ventricular Outflow Tract Name Value Normal LVOT 2D LVOT Diameter 2.03 cm LVOT Doppler LVOT Peak Gradient 4 mmHg LVOT Mean Gradient 2 mmHg LVOT VTI 19.20 cm LVOT VTI/AV VTI Ratio 0.77 LVOT Stroke Volume 62.26 ml LVOT CO 5.76 l/min LVOT CI 2.95 L/min/m2 Pulmonic Valve Name Value Normal RVOT Doppler RVOT Peak Gradient 3 mmHg PV Doppler PV Peak Gradient 4 mmHg Mitral Valve Name Value Normal MV Doppler MV Decel Finney 741.26 cm/s2 MV PHT 0 s MV Area (PHT) 5.99 cm2 4.00-5.00 MV Diastolic Function MV E Peak Velocity 93.82 cm/s MV A Peak Velocity 104.57 cm/s MV E/A 0.90 MV Decel Time 0 s MV Annular TDI MV E/e' (Septal) 20.47 <=8.00 MV E/e' (Lateral) 11.02 <=8.00 MV E/e' (Average) 15.75 Tricuspid Valve Name Value Normal TV Regurgitation Doppler TR Peak Velocity 227.26 cm/s TR Peak Gradient 21 mmHg Estimated PAP/RSVP RA Pressure 8 mmHg <=5 PA Systolic Pressure 29 mmHg <36 RV Systolic Pressure 29 mmHg <36 Aorta Name Value Normal Ascending Aorta Ao Root Diameter (MM) 2.91 cm Ao Root Diam Index (MM) 1.49 cm/m2 Aortic Valve Name Value Normal AV Doppler AV Peak Velocity 156.59 cm/s AV Peak Gradient 10 mmHg AV Mean Gradient 4 mmHg AV VTI 25.06 cm AV Area (Cont Eq VTI) 2.49 cm2 >=3.00 AV Area (Cont Eq Michael) 2.03 cm2 AV Regurgitation 2D LVOT Area 3.24 cm2 Ventricles Name Value Normal LV Dimensions 2D/MM IVS Diastolic Thickness (2D) 0.87 cm 0.60-1.00 LVID Diastole (2D) 4.91 cm 3.80-5.20 LVIW Diastolic Thickness (2D) 0.86 cm 0.60-0.90 LVID Systole (2D) 2.86 cm 2.20-3.50 LVOT Diameter 2.03 cm LV Mass (2D Cubed) 145.33 g 67.00-162.00 LV Mass Index (2D Cubed) 0.01 g/cm2 0.00-0.01 Relative Wall Thickness (2D) 0.35 LV Fractional Shortening/Ejection Fraction 2D/MM LV Fractional Shortening (2D) 42 % 27-45 LV EF (2D Teicholz) 72 % 54-74 LV Diastolic Volume (4C MOD) 62.36 ml LV EF (4C MOD) 70 % LV Diastolic Volume (2C MOD) 45.76 ml LV EF (2C MOD) 61 % LV Diastolic Volume (BP MOD) 56.09 ml 46.00-106.00 LV Diastolic Volume Index (BP MOD) 0.03 l/m2 0.03-0.06 LV Systolic Volume (BP MOD) 19.02 ml 14.00-42.00 LV Systolic Volume Index (BP MOD) 0.01 l/m2 0.01-0.02 LV EF (BP MOD) 66 % 54-74 LV Diastolic Length (4C) 8.40 cm LV Systolic Length (4C) 6.63 cm LV Stroke Volume (4C MOD) 43.34 ml Atria Name Value Normal LA Dimensions LA Dimension (MM) 4.21 cm 2.70-3.80 LA Volume (4C A-L) 34.72 ml LA Volume (BP A-L) 45.97 ml RA Dimensions RA Area (4C) 14.48 cm2 <=18.00 Report Signatures
[2024-08-15] MEDS: IPRATROPIUM 0.5 MG/ALBUTEROL SULFATE 2.5 MG AMPUL.NEB 3 ML INHALATION ×4 (02:02→20:11)
[2024-08-15 05:59] LABS: Basophils Absolute Auto 0.1 K/mm3 (0.0-0.1); Basophils Percent Auto 0.7 % (0.2-1.2); Eosinophils Absolute Auto 0.2 K/mm3 (0-0.3); Eosinophils Percent Auto 1.8 % (0-4.4); Hematocrit 29.9 % (37.0-47.0); Hemoglobin 9.7 g/dL (12.0-15.0); Immature Granulocyte Absolute 0.49 K/mm3 (0.00-0.031); Immature Granulocyte Percent A 4.1 % (0-0.5); Lymphocytes Absolute Auto 2.29 K/mm3 (0.9-3.2); Mean Corpuscular HGB Conc 32.4 g/dl (32-36); Mean Corpuscular Hemoglobin 31.4 pg (26-34); Mean Corpuscular Volume 96.8 fl (80-100); Mean Platelet Volume 9.8 fl (7.4-10.4); Monocytes Absolute Auto 0.9 K/mm3 (0.1-0.6); Monocytes Percent Auto 7.8 % (2.6-8.5); Neutrophils Absolute Auto 8.1 K/mm3 (1.3-6.7); Neutrophils Percent Auto 66.6 % (45.5-73.1); Platelet Count Result 306 k/mm3 (150-375); Red Blood Count 3.09 M/mm3 (4.2-5.4); Red Cell Distribution Width 13.8 % (11.5-14.5); White Blood Count 12.1 K/mm3 (4.5-10.0)
[2024-08-15] MEDS: LEVOTHYROXINE SODIUM 25 MCG TABLET PO (06:01)
[2024-08-15 06:18] LABS: Alanine Aminotransferase 18 U/L (6-35); Alkaline Phosphatase 75 U/L (38-126); Anion Gap 4 mmol/L (4-12); Aspartate Amino Transferase 24 U/L (14-36); Bilirubin,Total 0.4 mg/dL (0.2-1.3); Blood Urea Nitrogen 23 mg/dL (7-17); Calcium 9.6 mg/dL (8.4-10.2); Carbon Dioxide 30 mmol/L (22-30); Chloride 102 mmol/L (98-107); Estimated CRCL calculation 40 ml/min; Estimated Glomerular Filt Rate > 60; Glucose 172 mg/dL (65-110); Sodium 136 mmol/L (137-145)
[2024-08-15 08:20] LABS: Glucose Point of Care 177 mg/dl (65-105)
[2024-08-15 08:38] LABS: Magnesium 1.7 mg/dL (1.6-2.3)
[2024-08-15] MEDS: hydroCHLOROthiazide 25 MG TABLET PO (09:03)
[2024-08-15] MEDS: CHOLECALCIFEROL 5,000 UNITS TABLET 10000 UNITS BY MOUTH (09:03)
[2024-08-15] MEDS: POTASSIUM CHLORIDE 10 MEQ ER TABLET PO (09:03)
[2024-08-15] MEDS: METOPROLOL SUCCINATE EXT REL 25 MG TABCR PO (09:03)
[2024-08-15] MEDS: DOXYCYCLINE HYCLATE 100 MG TABLET PO ×2 (09:03→21:15)
[2024-08-15] MEDS: VITAMIN E 400 UNIT CAPSULE PO (09:03)
[2024-08-15] MEDS: guaiFENesin 12 HR 600 MG TABCR 1200 MG PO ×2 (09:03→21:15)
[2024-08-15] MEDS: ENOXAPARIN 40 MG/0.4 ML SYRINGE SUB-Q (09:04)
[2024-08-15] MEDS: PIOGLITAZONE HCL 45 MG TABLET PO (09:08)
[2024-08-15] MEDS: MAGNESIUM SULF 2 GM/WATER 50ML 2 GM/50 ML BAG IVPB (09:08)
--- NOTE | 2024-08-15 11:58 | PM.IMPN ---
Progress Note: A&P Assessment and Plan (1) Respiratory syncytial virus (RSV): Qualifiers: RSV infection type: pneumonia Qualified Code(s): J12.1 - Respiratory syncytial virus pneumonia Code(s): B33.8 - Other specified viral diseases Status: Acute Assessment and Plan: Continue supportive care (2) Community acquired pneumonia: Qualifiers: Laterality: unspecified laterality Qualified Code(s): J18.9 - Pneumonia, unspecified organism Code(s): J18.9 - Pneumonia, unspecified organism Status: Acute Assessment and Plan: Likely RSV but cannot exclude secondary bacterial infection Continue Doxycycline and ceftriaxone Blood culture grew Staphylococcus hominis. Duoneb q 6. Guaifenesin 1,200 mg PO q 12. incentive spirometer. PT/OT (3) Acute hypoxic respiratory failure: Code(s): J96.01 - Acute respiratory failure with hypoxia Status: Acute Assessment and Plan: Continue oxygen and wean as possible (4) Elevated brain natriuretic peptide (BNP) level: Code(s): R79.89 - Other specified abnormal findings of blood chemistry Status: Acute Assessment and Plan: With edema pulmonary infiltrates and hypoxia but no cardiac history 08/12/2024 echocardiogram ordered. (5) Memory loss, short term: Code(s): R41.3 - Other amnesia Status: Acute Assessment and Plan: Consistent with early dementia (6) Sepsis: Qualifiers: Acute respiratory failure type: with hypoxia Sepsis acute organ dysfunction status: with acute organ dysfunction Sepsis type: sepsis due to unspecified organism Severe sepsis acute organ dysfunction type: acute respiratory failure Severe sepsis shock status: without septic shock Qualified Code(s): A41.9 - Sepsis, unspecified organism; R65.20 - Severe sepsis without septic shock; J96.01 - Acute respiratory failure with hypoxia Code(s): A41.9 - Sepsis, unspecified organism Status: Acute Assessment and Plan: 08/12/2024 resolved. (7) Diabetes: Qualifiers: Diabetes mellitus complication status: without complication Diabetes mellitus usp insulin use: without manager long term care use Diabetes mellitus type: type 2 Qualified Code(s): E11.9 - Type 2 diabetes mellitus without complications Code(s): E11.9 - Type 2 diabetes mellitus without complications Status: Acute Assessment and Plan: Home regimen is patio glute his own which is a bit concerning given her edema and morbid obesity Pending echo results consider switch to SGLT2 inhibitor Continue to monitor sugars on diabetic diet 08/15 FBS 195 (8) Iron deficiency anemia: Code(s): D50.9 - Iron deficiency anemia, unspecified Status: Acute Assessment and Plan: H&H 9.7/29.9, Iron 30, TIBC 227, % saturation 13. Clumped large platelets present. Hematology consult. Monitor labs. Plan concerned that was sleepy and not wanting to answer questions after receiving magnesium that magnesium may of caused it. reports that patient is fine now. Explained to that I was trying to keep magnesium closer to 2 with diuretics and it was 1.7 today. voiced understanding. Subjective Date/time seen: 08/15/24 11:58 Interval history: Patient lying in bed with at bedside. Patient reports shortness of breath improving slightly and coughing up yellow sputum. Patient denies chest pain, palpitations, headache, dizziness, nausea, or vomiting. Review of Systems Review of Systems: All systems reviewed & are unremarkable except as noted in HPI and below Exam Const: General: comfortable and no acute distress Eyes: Sclera: sclerae normal Resp: Auscultation: diminished lung sounds Cardio: Rate: regular rate Rhythm: regular rhythm GI: GI Palp: Yes Soft to palpation Auscultation: normal bowel sounds Other: obese Skin: General skin exam: no rashes or lesions noted Neuro: Speech: normal speech Extrem: General: pedal edema bilaterally 1+ Psych: Affect: normal affect Other: Oriented to person, place, but not to time. Objective Data Vital Signs Vital Signs: Vital Signs - 24 hr 08/14/24 14:00 08/14/24 14:40 08/14/24 14:55 Temperature 98.4 F Pulse Rate 92 108 H 96 Respiratory Rate 18 20 20 Blood Pressure 126/68 Pulse Oximetry 95 Oxygen Delivery Oxygen Flow Rate Fraction of Inspired Oxygen 08/14/24 20:00 08/14/24 20:02 08/14/24 20:02 Temperature Pulse Rate 87 112 H 112 H Respiratory Rate 18 20 Blood Pressure Pulse Oximetry 95 94 Oxygen Delivery Nasal Cannula Nasal Cannula Oxygen Flow Rate 2 2 Fraction of Inspired Oxygen 28 28 08/14/24 20:10 08/14/24 20:53 08/15/24 02:02 Temperature 97.6 F Pulse Rate 108 H 87 111 H Respiratory Rate 20 18 20 Blood Pressure 132/53 L Pulse Oximetry 95 Oxygen Delivery Oxygen Flow Rate Fraction of Inspired Oxygen 08/15/24 02:12 08/15/24 05:14 08/15/24 07:53 Temperature 98.3 F Pulse Rate 114 H 101 H 98 Respiratory Rate 20 18 20 Blood Pressure 127/63 Pulse Oximetry 98 95 Oxygen Delivery Nasal Cannula Oxygen Flow Rate 2 Fraction of Inspired Oxygen 08/15/24 07:53 08/15/24 09:00 08/15/24 09:03 Temperature Pulse Rate 98 94 Respiratory Rate 20 Blood Pressure Pulse Oximetry 97 Oxygen Delivery Nasal Cannula Oxygen Flow Rate 2 Fraction of Inspired Oxygen Intake/Output Intake/Output: Intake & Output 08/12/24 08/13/24 08/14/24 08/15/24 23:59 23:59 23:59 23:59 Intake Total 250 2670 1770 800 Output Total 800 1050 1600 450 Balance -550 1620 170 350 Meds/Results Medications: Active Medications Generic Name Dose Route Start Last Admin Trade Name Freq PRN Reason Stop Dose Admin Acetaminophen 650 mg 08/11/24 19:48 08/12/24 02:34 Acetaminophen 325 Mg Tablet PO 650 mg Q4H PRN Administration Mild Pain (1-3) or Fever Albuterol/Ipratropium 3 ml 08/12/24 08:00 08/15/24 07:51 Ipratropium 0.5 Mg/Albuterol Sulfate 2.5 Mg Ampul.Neb 3 Ml INHALATION 3 ml Q6HRT KEL Administration Dextrose 12.5 gm 08/12/24 00:50 Dextrose 50% 25 Gm/50 Ml Syringe IV PUSH PRN PRN Hypoglycemia Protocol Doxycycline Hyclate 100 mg 08/14/24 21:00 08/15/24 09:03 Doxycycline Hyclate 100 Mg Tablet PO 08/16/24 09:01 100 mg Q12HR KEL Administration Enoxaparin Sodium 40 mg 08/12/24 09:00 08/15/24 09:04 Enoxaparin 40 Mg/0.4 Ml Syringe SUB-Q 40 mg DAILY KEL Administration Glucagon 1 mg 08/12/24 00:50 Glucagon For Inj 1 Mg Vial IM PRN PRN Hypoglycemia Protocol Glucose 15 gm 08/12/24 00:50 Glucose Oral Gel 15 Gm Of Glucse In 37.5 Gm Tube PO PRN PRN Hypoglycemia Protocol Guaifenesin 1,200 mg 08/12/24 09:00 08/15/24 09:03 Guaifenesin 12 Hr 600 Mg Tabcr PO 1,200 mg Q12HR KEL Administration Hydrochlorothiazide 25 mg 08/13/24 09:30 08/15/24 09:03 Hydrochlorothiazide 25 Mg Tablet PO 25 mg DAILY KEL Administration Ceftriaxone Sodium 1 gm in 50 mls @ 100 mls/hr 08/12/24 18:00 08/14/24 17:31 Rocephin 1 Gm/Ns 50 Ml IVPB 100 mls/hr Q24H KEL Administration Dextrose 1,000 mls @ 100 mls/hr 08/12/24 00:50 Dextrose 5% 1,000 Ml IVPB PRN PRN Hypoglycemia Protocol Insulin Aspart 3 - 6 units 08/12/24 08:00 08/15/24 08:58 Insulin Aspart (*Bkc) 100 Units/Ml SUB-Q Not Given TIDWM [facility] Protocol Insulin Aspart 1 - 3 units 08/12/24 21:00 08/14/24 21:57 Insulin Aspart (*Bkc) 100 Units/Ml SUB-Q Not Given HS [facility] Protocol Levothyroxine Sodium 25 mcg 08/12/24 06:30 08/15/24 06:01 Levothyroxine Sodium 25 Mcg Tablet PO 25 mcg DAILY@0630 KEL Administration Melatonin 3 mg 08/12/24 21:00 08/14/24 21:55 Melatonin 3 Mg Tablet PO 3 mg HS [facility] Administration Metoprolol Succinate 25 mg 08/12/24 09:00 08/15/24 09:03 Metoprolol Succinate Ext Rel 25 Mg Tabcr PO 25 mg DAILY KEL Administration Ondansetron HCl 4 mg 08/11/24 19:48 Ondansetron Inj 4 Mg/2 Ml Vial IV PUSH Q4H PRN Nausea Pioglitazone HCl 45 mg 08/12/24 09:00 08/15/24 09:08 Pioglitazone Hcl 45 Mg Tablet PO 45 mg DAILY KEL Administration Potassium Chloride 10 meq 08/12/24 09:00 08/15/24 09:03 Potassium Chloride 10 Meq Er Tablet PO 10 meq DAILY KEL Administration Pravastatin Sodium 80 mg 08/12/24 21:00 08/14/24 21:55 Pravastatin Sodium 20 Mg Tablet PO 80 mg QHS KEL Administration Vitamin D 10,000 units 08/12/24 09:00 08/15/24 09:03 Cholecalciferol 5,000 Units Tablet BY MOUTH 10,000 units DAILY KEL Administration Vitamin E 400 unit 08/12/24 09:00 08/15/24 09:03 Vitamin E 400 Unit Capsule PO 400 unit DAILY KEL Administration Radiology Results: ITS Impressions Chest X-Ray 08/11/24 15:32 IMPRESSION: 1. Airspace opacities in the mid and lower lung zones, consistent with atelectasis versus pneumonia versus chronic lung disease. Labs Labs: Laboratory Results - last 24 hr 08/14/24 08/14/24 08/14/24 11:37 17:00 19:35 WBC RBC Hgb Hct MCV MCH MCHC RDW Plt Count MPV Immature Gran % (Auto) Neut % (Auto) Lymph % (Auto) [place] % (Auto) Eos % (Auto) Baso % (Auto) Lymph # (Auto) [place] # (Auto) Eos # (Auto) Baso # (Auto) Abs Immat Gran (auto) Absolute Neuts (auto) Absolute Nucleated RBC Nucleated RBC % Sodium Potassium Chloride Carbon Dioxide Anion Gap BUN Creatinine Estim Creat Clear Calc Estimated GFR Glucose POC Capillary Glucose 200 H 203 H 188 H Calcium Magnesium Total Bilirubin AST ALT Alkaline Phosphatase Total Protein Albumin 08/15/24 08/15/24 08/15/24 05:34 05:37 08:07 WBC 12.1 H RBC 3.09 L Hgb 9.7 L Hct 29.9 L MCV 96.8 MCH 31.4 MCHC 32.4 RDW 13.8 Plt Count 306 MPV 9.8 Immature Gran % (Auto) 4.1 H Neut % (Auto) 66.6 Lymph % (Auto) 19.0 [place] % (Auto) 7.8 Eos % (Auto) 1.8 Baso % (Auto) 0.7 Lymph # (Auto) 2.29 [place] # (Auto) 0.9 H Eos # (Auto) 0.2 Baso # (Auto) 0.1 Abs Immat Gran (auto) 0.49 H Absolute Neuts (auto) 8.1 H Absolute Nucleated RBC 0.000 Nucleated RBC % 0.0 Sodium 136 L Potassium 4.0 Chloride 102 Carbon Dioxide 30 Anion Gap 4 BUN 23 H Creatinine 0.81 Estim Creat Clear Calc 40 Estimated GFR > 60 Glucose 172 H POC Capillary Glucose 177 H Calcium 9.6 Magnesium 1.7 Total Bilirubin 0.4 AST 24 ALT 18 Alkaline Phosphatase 75 Total Protein 6.0 L Albumin 3.0 L Quality VTE Prophylaxis VTE prophylaxis: pharmacologic ordered (Lovenox 40 mg subq day.)
[2024-08-15] MEDS: ACETAMINOPHEN 325 MG TABLET 650 MG PO (12:07)
[2024-08-15 13:11] LABS: Glucose Point of Care 195 mg/dl (65-105)
--- NOTE | 2024-08-15 13:19 | PCOTNOTE ---
The patient treatment was not able to be completed. Respiratory present. Will plan to continue treatment per plan of care.
--- NOTE | 2024-08-15 13:25 | WPDCN ---
HPI Data of Consult Date/Time: 08/15/24 13:25 Requesting Physician: Chanda Strange DO Primary Care Provider: Antoine Belle DO Consult Narrative Narrative: Yonatan Bardales is a 89 year old female Review of Systems Review of Systems: This is an 89 y/o lady with a background of hypertension, DM-2, CVA and thyroid carcinoma, some mental confusion admitted with RSV pneumonia severe shortness of breath and ultimately septic shock. She has anemia which has been worked up with findings suggestive of iron deficiency. Hgb 11.2g%, Iron saturation 13%, serum iron 30 mg%; Ferritin (pending). The patient is referred for iron deficiency anemia. She denies active bleeding to her knowledge. Folate 4mg% B12 >1000pcg/ml. [facility] Past Medical History Medical History (Updated 08/14/24 @ 14:06 by April Conroy, TUNNEL DRIER OPERATOR) Thyroid cancer B12 deficiency Hyperlipidemia Hypertension Stroke Arthritis Diabetes Allergies Surgical History Surgical History (Updated 08/11/24 @ 22:43 by Chanda Strange DO) History of thyroidectomy History of cataract surgery (~2020) History of section History of back surgery Family History Family History Father Heart disease Hypertension Other Diabetes mellitus Social History Social History (Updated 08/12/24 @ 08:51 by Chanda Strange DO) Social History: The patient lives with her of 67 years. They raised 5 sons. The patient was a homemaker and artist. The she is a lifelong nonsmoker and does not drink alcohol or use illicit substances. She ambulates with a walker. Code status: Full code Surrogate decision maker: Matt Dillard () Smoking status: Never smoker Alcohol intake: never Substance use: never Substance use type: does not use Do You Feel Safe in your Home?: Yes Lack of Transportation: No Lack of Food: Never True Current Housing: I Have Housing Concerned About Future Housing: No Difficulty Paying Gas/Electric Bills: No Difficulty Paying for Meds: No Currently Unemployed: No Education: Bachelor's Degree Difficulty w/ Childcare or Family Care: No Spiritual care concerns: No Meds Home Medications and Allergies Home Medications ?Medication ?Instructions ?Recorded ?Confirmed ?Type cholecalciferol (vitamin D3) 250 250 mcg PO DAILY 06/04/23 08/11/24 History mcg (10,000 unit) capsule coQ10 (ubiquinol) 100 mg capsule 200 mg PO BID 06/04/23 08/11/24 History (Qunol Rick CoQ10) hydrochlorothiazide 25 mg tablet 25 mg PO DAILY 06/04/23 08/11/24 History metoprolol succinate 25 mg 25 mg PO DAILY 06/04/23 08/11/24 History tablet,extended release 24 hr potassium chloride 10 mEq 10 meq PO DAILY 06/04/23 08/11/24 History capsule,extended release pravastatin 80 mg tablet 80 mg PO QHS 06/04/23 08/11/24 History vitamin E (dl, acetate) 180 mg 180 mg PO DAILY 06/04/23 08/11/24 History (400 unit) capsule coenzyme [id number] lipoic acid-vit 2 cap PO DAILY 12/08/23 08/11/24 History E 30 mg-50 mg-100 unit capsule (Q-GEL with Alpha Lipoic Acid) pioglitazone 45 mg tablet 45 mg PO DAILY #90 tabs 05/24/24 08/11/24 Rx levothyroxine 25 mcg tablet 25 mcg PO DAILY #90 tabs 06/01/24 08/11/24 Rx alpha lipoic acid 100 mg capsule 100 mg PO DAILY 06/13/24 08/11/24 History mecobalamin (vitamin B12) 1 tablet PO .every other day 06/13/24 08/11/24 History Allergies Allergy/AdvReac Type Severity Reaction Status Date / Time lidocaine (From Xylocaine) Allergy Severe Unresponsiv Verified 08/11/24 11:43 e Vital Signs Vital Signs - 24 hr 08/14/24 14:00 08/14/24 14:40 08/14/24 14:55 Temperature 36.9 C Pulse Rate 92 108 H 96 Respiratory Rate 18 20 20 Blood Pressure 126/68 Pulse Oximetry 95 Oxygen Delivery Oxygen Flow Rate Fraction of Inspired Oxygen 08/14/24 20:00 08/14/24 20:02 08/14/24 20:02 Temperature Pulse Rate 87 112 H 112 H Respiratory Rate 18 20 Blood Pressure Pulse Oximetry 95 94 Oxygen Delivery Nasal Cannula Nasal Cannula Oxygen Flow Rate 2 2 Fraction of Inspired Oxygen 28 28 08/14/24 20:10 08/14/24 20:53 08/15/24 02:02 Temperature 36.4 C Pulse Rate 108 H 87 111 H Respiratory Rate 20 18 20 Blood Pressure 132/53 L Pulse Oximetry 95 Oxygen Delivery Oxygen Flow Rate Fraction of Inspired Oxygen 08/15/24 02:12 08/15/24 05:14 08/15/24 07:53 Temperature 36.8 C Pulse Rate 114 H 101 H 98 Respiratory Rate 20 18 20 Blood Pressure 127/63 Pulse Oximetry 98 95 Oxygen Delivery Nasal Cannula Oxygen Flow Rate 2 Fraction of Inspired Oxygen 08/15/24 07:53 08/15/24 09:00 08/15/24 09:03 Temperature Pulse Rate 98 94 Respiratory Rate 20 Blood Pressure Pulse Oximetry 97 Oxygen Delivery Nasal Cannula Oxygen Flow Rate 2 Fraction of Inspired Oxygen 08/15/24 13:16 08/15/24 13:24 Temperature Pulse Rate 101 H 98 Respiratory Rate 20 20 Blood Pressure Pulse Oximetry Oxygen Delivery Oxygen Flow Rate Fraction of Inspired Oxygen Results Labs 08/15/24 05:37 08/15/24 05:37 Labs: Short CBC 08/15/24 Range/Units 05:37 WBC 12.1 H (4.5-10.0) K/mm3 Hgb 9.7 L (12.0-15.0) g/dL Hct 29.9 L (37.0-47.0) % Plt Count 306 (150-375) k/mm3 BMP 08/15/24 05:37 Sodium 136 L Potassium 4.0 Chloride 102 Carbon Dioxide 30 BUN 23 H Creatinine 0.81 Glucose 172 H Calcium 9.6 Liver Function 08/15/24 Range/Units 05:37 Total Bilirubin 0.4 (0.2-1.3) mg/dL AST 24 (14-36) U/L ALT 18 (6-35) U/L Alkaline Phosphatase 75 (38-126) U/L Albumin 3.0 L (3.5-5.1) g/dL Attestation Supervising Provider Attestation Assessment: Anemia unspecified; to rule out iron deficiency. Ferritin blood level is pending. Folic acid is low but easy to supplement. Plan: Folic acid supplementation Measurement of iron stores i.e. ferritin Iron supplement as needed orally or intravenously.
[2024-08-15] MEDS: PERFLUTREN LIPID MICROSPHERES 1.5 ML VIAL DILUTED TO 10 ML TOTAL VOLUME IV PUSH (16:30)
--- NOTE | 2024-08-15 17:02 | IVDEFINITY ---
Prior to administration of IV Definity the patient was educated on the risks and benefits of the imaging enhancing agent including potential adverse side effects. The patient verbalized understanding. Allergies were verified. No exclusion criteria were identified and at least one of the following inclusion criteria were met: 1) physician request, 2) patient technically difficult to image (per the [place] [employer] guidelines of two or more segments not discernable within the apical view), or 3) questionable left ventricular function. ?
[2024-08-15 17:34] LABS: Glucose Point of Care 202 mg/dl (65-105)
[2024-08-15] MEDS: INSULIN ASPART (*BKC) 100 UNITS/ML SUB-Q (17:36)
[2024-08-15] MEDS: PRAVASTATIN SODIUM 20 MG TABLET 80 MG PO (21:14)
[2024-08-15] MEDS: MELATONIN 3 MG TABLET PO (21:15)
[2024-08-15 21:44] LABS: Glucose Point of Care 174 mg/dl (65-105)
[2024-08-16] VITALS (12 sets, daily range): BP systolic 117–150; BP diastolic 60–85; PULSE 86–118; RESP 18–22; TEMP 36.4–36.9; O2SAT 92–98
[2024-08-16] MEDS: IPRATROPIUM 0.5 MG/ALBUTEROL SULFATE 2.5 MG AMPUL.NEB 3 ML INHALATION ×4 (02:02→20:32)
[2024-08-16] MEDS: LEVOTHYROXINE SODIUM 25 MCG TABLET PO (05:48)
[2024-08-16 06:00] LABS: Basophils Absolute Auto 0.1 K/mm3 (0.0-0.1); Basophils Percent Auto 0.5 % (0.2-1.2); Eosinophils Absolute Auto 0.3 K/mm3 (0-0.3); Eosinophils Percent Auto 2.1 % (0-4.4); Hematocrit 29.8 % (37.0-47.0); Hemoglobin 9.8 g/dL (12.0-15.0); Immature Granulocyte Absolute 0.37 K/mm3 (0.00-0.031); Lymphocytes Absolute Auto 2.08 K/mm3 (0.9-3.2); Mean Corpuscular HGB Conc 32.9 g/dl (32-36); Mean Corpuscular Hemoglobin 32.3 pg (26-34); Mean Corpuscular Volume 98.3 fl (80-100); Monocytes Absolute Auto 0.8 K/mm3 (0.1-0.6); Monocytes Percent Auto 6.6 % (2.6-8.5); Neutrophils Absolute Auto 8.6 K/mm3 (1.3-6.7); Neutrophils Percent Auto 70.8 % (45.5-73.1); Platelet Count Result 277 k/mm3 (150-375); Red Blood Count 3.03 M/mm3 (4.2-5.4); Red Cell Distribution Width 13.8 % (11.5-14.5); White Blood Count 12.2 K/mm3 (4.5-10.0)
[2024-08-16 06:35] LABS: Alanine Aminotransferase 17 U/L (6-35); Alkaline Phosphatase 74 U/L (38-126); Anion Gap 5 mmol/L (4-12); Aspartate Amino Transferase 23 U/L (14-36); Bilirubin,Total 0.4 mg/dL (0.2-1.3); Blood Urea Nitrogen 21 mg/dL (7-17); Calcium 9.4 mg/dL (8.4-10.2); Carbon Dioxide 31 mmol/L (22-30); Chloride 101 mmol/L (98-107); Estimated CRCL calculation 44 ml/min; Estimated Glomerular Filt Rate > 60; Glucose 171 mg/dL (65-110); Magnesium 1.8 mg/dL (1.6-2.3); Potassium 4.2 mmol/L (3.4-5.0); Sodium 137 mmol/L (137-145)
[2024-08-16 07:55] LABS: Glucose Point of Care 179 mg/dl (65-105)
[2024-08-16] MEDS: PIOGLITAZONE HCL 45 MG TABLET PO (09:10)
[2024-08-16] MEDS: CHOLECALCIFEROL 5,000 UNITS TABLET 10000 UNITS BY MOUTH (09:10)
[2024-08-16] MEDS: VITAMIN E 400 UNIT CAPSULE PO (09:10)
[2024-08-16] MEDS: METOPROLOL SUCCINATE EXT REL 25 MG TABCR PO (09:10)
[2024-08-16] MEDS: DOXYCYCLINE HYCLATE 100 MG TABLET PO (09:10)
[2024-08-16] MEDS: guaiFENesin 12 HR 600 MG TABCR 1200 MG PO ×2 (09:10→22:01)
[2024-08-16] MEDS: POTASSIUM CHLORIDE 10 MEQ ER TABLET PO (09:10)
[2024-08-16] MEDS: ENOXAPARIN 40 MG/0.4 ML SYRINGE SUB-Q (09:11)
[2024-08-16] MEDS: hydroCHLOROthiazide 25 MG TABLET PO (09:11)
[2024-08-16] MEDS: AMOXICILLIN/CLAVULANATE K 875-125 MG TAB 1 TABLET PO (10:01)
[2024-08-16] MEDS: AZITHROMYCIN 250 MG TABLET 500 MG PO (10:02)
[2024-08-16] MEDS: BENZONATATE 100 MG CAPSULE 200 MG PO ×3 (10:02→17:22)
[2024-08-16] MEDS: methylPREDNISolone SOD SUCC 125 MG VIAL 60 MG IV PUSH ×2 (11:44→17:22)
[2024-08-16] MEDS: FUROSEMIDE INJ 40 MG/4 ML VIAL 20 MG IV PUSH ×2 (11:45→18:40)
[2024-08-16 12:17] LABS: Glucose Point of Care 176 mg/dl (65-105)
--- NOTE | 2024-08-16 13:14 | PCOTNOTE ---
The patient treatment was not able to be completed patient is still eating lunch. 13:15. Will plan to continue treatment per plan of care.
[2024-08-16 17:11] LABS: Glucose Point of Care 262 mg/dl (65-105)
[2024-08-16] MEDS: INSULIN ASPART (*BKC) 100 UNITS/ML SUB-Q ×2 (17:23→22:02)
--- NOTE | 2024-08-16 17:58 | P.PNIM_ITS ---
Progress Note: A&P Assessment and Plan (1) Respiratory syncytial virus (RSV): Qualifiers: RSV infection type: pneumonia Qualified Code(s): J12.1 - Respiratory syncytial virus pneumonia Code(s): B33.8 - Other specified viral diseases Status: Acute Assessment and Plan: * Continue supportive care (2) Community acquired pneumonia: Qualifiers: Laterality: unspecified laterality Qualified Code(s): J18.9 - Pneumonia, unspecified organism Code(s): J18.9 - Pneumonia, unspecified organism Status: Acute Assessment and Plan: * CT soft-tissue showing RUL PNA. * Patient completed 7 days IV Doxycycline and ceftriaxone. * Repeat CXR showing worsened diffuse lung disease, pulmonary edema vs PNA. * Blood culture grew Staphylococcus hominis. * Started on Vanc, Cefepime and Flagyl. * Geek Squad Manager consulted. * Continue duoneb q 6. * Guaifenesin 1,200 mg PO q 12. * Benzonatate Q8hrs. * incentive spirometer. * PT/OT (3) Acute hypoxic respiratory failure: Code(s): J96.01 - Acute respiratory failure with hypoxia Status: Acute Assessment and Plan: * Likely related to above vs/+RSV Vs/+bronchomalacia +/vs tracheomalacia. * Continue supplemental O2 now on 2L/NC for sats > 90 %. * Wean O2 as perla to maintain sats > 90 %. * Geek Squad Manager consulted. (4) Elevated brain natriuretic peptide (BNP) level: Code(s): R79.89 - Other specified abnormal findings of blood chemistry Status: Acute Assessment and Plan: * CXR consistent with possible pulmonary edema. * BNP 4250. * TT Echocardiogram showing EF 60-65%. * Given a dose of lasix. * Daily weights with I&O's monitoring. (5) Memory loss, short term: Code(s): R41.3 - Other amnesia Status: Acute Assessment and Plan: * Possibly early dementia vs infection vs other. * Mentation appears wnl. (6) Sepsis: Qualifiers: Sepsis type: sepsis due to unspecified organism Sepsis acute organ dysfunction status: with acute organ dysfunction Severe sepsis acute organ dysfunction type: acute respiratory failure Acute respiratory failure type: with hypoxia Severe sepsis shock status: without septic shock Qualified Code(s): A41.9 - Sepsis, unspecified organism; R65.20 - Severe sepsis without septic shock; J96.01 - Acute respiratory failure with hypoxia Code(s): A41.9 - Sepsis, unspecified organism Status: Acute Assessment and Plan: * 08/12/2024 resolved. (7) Diabetes: Qualifiers: Diabetes mellitus type: type 2 Diabetes mellitus long haul truck driver insulin use: without long haul truck driver use Diabetes mellitus complication status: without complication Qualified Code(s): E11.9 - Type 2 diabetes mellitus without complications Code(s): E11.9 - Type 2 diabetes mellitus without complications Status: Acute Assessment and Plan: * Fairly well controlled during the day with some elevations in PM. * We'll monitor for now to prevent nocturnal hypoglycemia. * Continue diabetic diet. (8) Iron deficiency anemia: Code(s): D50.9 - Iron deficiency anemia, unspecified Status: Acute Assessment and Plan: * Hgb appears stable. * Continue to monitor closely. * No overt bleeding signs noted. Time Spent With Patient Time with patient: 25 - 35 minutes Subjective Date/time seen: 08/16/24 10:00 Patient states she's still having intermittent episodes of moist coughs. States she's still having SOB with minimal activity. Interval history: Patient on bedrest and noted with SOB on minimal activity at bedrest. Review of Systems Review of Systems: Review of systems was limited due to the patient's confusion. All systems reviewed & are unremarkable except as noted in HPI and below Exam Narrative: General: Fair appearing, generalized muscle weakness. HEENT: PERRL, sclerae nonicteric, pharyngeal mucosa pink and intact NECK: No JVD CHEST: Mildly tachypneic. Coarse breath sounds throughout. HEART: RRR, no murmurs ABDOMEN: BS+, soft, nontender, non-distended. EXTREMITIES: 1+ pitting edema of chas. feet. NEUROLOGIC: Well oriented. CN II-XII grossly intact. PSYCH: Alert. Oriented to person, place, time and situation. Objective Data Vital Signs Vital Signs: Vital Signs - 24 hr 08/15/24 20:05 08/15/24 20:15 08/15/24 20:17 Temperature Pulse Rate 103 H 101 H 103 H Respiratory Rate 20 20 Blood Pressure Pulse Oximetry 94 Oxygen Delivery Nasal Cannula Oxygen Flow Rate 2 08/15/24 21:04 08/15/24 22:00 08/16/24 02:02 Temperature 97.9 F Pulse Rate 105 H 113 H Respiratory Rate 20 20 Blood Pressure 123/66 Pulse Oximetry 94 98 Oxygen Delivery Nasal Cannula Oxygen Flow Rate 2 08/16/24 02:02 08/16/24 02:11 08/16/24 05:56 Temperature 98.4 F Pulse Rate 108 H 111 H Respiratory Rate 20 18 Blood Pressure 117/60 Pulse Oximetry 97 97 Oxygen Delivery Nasal Cannula Oxygen Flow Rate 2 08/16/24 07:35 08/16/24 07:35 08/16/24 07:45 Temperature Pulse Rate 88 88 91 Respiratory Rate 18 18 20 Blood Pressure Pulse Oximetry 98 Oxygen Delivery Nasal Cannula Oxygen Flow Rate 2 08/16/24 09:10 08/16/24 09:10 08/16/24 13:40 Temperature Pulse Rate 92 86 Respiratory Rate 18 Blood Pressure Pulse Oximetry 98 Oxygen Delivery Nasal Cannula Oxygen Flow Rate 2 08/16/24 14:00 Temperature 97.6 F Pulse Rate 118 H Respiratory Rate 22 H Blood Pressure 127/64 Pulse Oximetry 92 Oxygen Delivery Oxygen Flow Rate Intake/Output Intake/Output: Intake & Output 08/13/24 08/14/24 08/15/24 08/16/24 23:59 23:59 23:59 23:59 Intake Total 2670 1820 1620 2000 Output Total 1050 1600 801 450 Balance 1620 558 795 7160 Meds/Results Medications: Active Medications Generic Name Dose Route Start Last Admin Trade Name Freq PRN Reason Stop Dose Admin Acetaminophen 650 mg 08/11/24 19:48 08/15/24 12:07 Acetaminophen 325 Mg Tablet PO 650 mg Q4H PRN Administration Mild Pain (1-3) or Fever Albuterol/Ipratropium 3 ml 08/12/24 08:00 08/16/24 13:40 Ipratropium 0.5 Mg/Albuterol Sulfate 2.5 Mg Ampul.Neb 3 Ml INHALATION 3 ml Q6HRT KEL Administration Amoxicillin/Clavulanate Potassium 1 tablet 08/16/24 09:40 08/16/24 10:01 Amoxicillin/Clavulanate K 875-125 Mg Tab PO 1 tablet Q12HR KEL Administration Azithromycin 500 mg 08/16/24 09:40 08/16/24 10:02 Azithromycin 250 Mg Tablet PO 500 mg DAILY KEL Administration Benzonatate 200 mg 08/16/24 09:30 08/16/24 17:22 Benzonatate 100 Mg Capsule PO 200 mg TID KEL Administration Dextrose 12.5 gm 08/12/24 00:50 Dextrose 50% 25 Gm/50 Ml Syringe IV PUSH PRN PRN Hypoglycemia Protocol Enoxaparin Sodium 40 mg 08/12/24 09:00 08/16/24 09:11 Enoxaparin 40 Mg/0.4 Ml Syringe SUB-Q 40 mg DAILY KEL Administration Glucagon 1 mg 08/12/24 00:50 Glucagon For Inj 1 Mg Vial IM PRN PRN Hypoglycemia Protocol Glucose 15 gm 08/12/24 00:50 Glucose Oral Gel 15 Gm Of Glucse In 37.5 Gm Tube PO PRN PRN Hypoglycemia Protocol Guaifenesin 1,200 mg 08/12/24 09:00 08/16/24 09:10 Guaifenesin 12 Hr 600 Mg Tabcr PO 1,200 mg Q12HR KEL Administration Hydrochlorothiazide 25 mg 08/13/24 09:30 08/16/24 09:11 Hydrochlorothiazide 25 Mg Tablet PO 25 mg DAILY KEL Administration Dextrose 1,000 mls @ 100 mls/hr 08/12/24 00:50 Dextrose 5% 1,000 Ml IVPB PRN PRN Hypoglycemia Protocol Cefepime HCl 1 gm in 50 mls @ 100 mls/hr 08/16/24 17:55 Maxipime 1 Gm/Ns 50 Ml IVPB Q8H KEL Metronidazole 500 mg in 100 mls @ 100 mls/hr 08/16/24 17:55 Flagyl 500 Mg/Iso Soln 100 Ml IVPB Q8H KEL Insulin Aspart 3 - 6 units 08/12/24 08:00 08/16/24 17:23 Insulin Aspart (*Bkc) 100 Units/Ml SUB-Q 4 units TIDWM KEL Administration Protocol Insulin Aspart 1 - 3 units 08/12/24 21:00 08/15/24 21:05 Insulin Aspart (*Bkc) 100 Units/Ml SUB-Q Not Given HS KEL Protocol Levothyroxine Sodium 25 mcg 08/12/24 06:30 08/16/24 05:48 Levothyroxine Sodium 25 Mcg Tablet PO 25 mcg DAILY@0630 KEL Administration Melatonin 3 mg 08/12/24 21:00 08/15/24 21:15 Melatonin 3 Mg Tablet PO 3 mg HS KEL Administration Methylprednisolone Sodium Succinate 60 mg 08/16/24 12:00 08/16/24 17:22 Methylprednisolone Sod Succ 125 Mg Vial IV PUSH 60 mg Q6HR KEL Administration Metoprolol Succinate 25 mg 08/12/24 09:00 08/16/24 09:10 Metoprolol Succinate Ext Rel 25 Mg Tabcr PO 25 mg DAILY KEL Administration Ondansetron HCl 4 mg 08/11/24 19:48 Ondansetron Inj 4 Mg/2 Ml Vial IV PUSH Q4H PRN Nausea Pioglitazone HCl 45 mg 08/12/24 09:00 08/16/24 09:10 Pioglitazone Hcl 45 Mg Tablet PO 45 mg DAILY KEL Administration Potassium Chloride 10 meq 08/12/24 09:00 08/16/24 09:10 Potassium Chloride 10 Meq Er Tablet PO 10 meq DAILY KEL Administration Pravastatin Sodium 80 mg 08/12/24 21:00 08/15/24 21:14 Pravastatin Sodium 20 Mg Tablet PO 80 mg QHS KEL Administration Fluticasone/Salmeterol 2 puff 08/16/24 20:00 Fluticasone/Salmeterol 115-21 Mcg Inhaler 1 Puff INHALATION Q12HRT [facility] Vancomycin HCl 1 each 08/16/24 17:55 Vancomycin Pharmacist To Dose IVPB PER PROTOCOL [facility] Vitamin D 10,000 units 08/12/24 09:00 08/16/24 09:10 Cholecalciferol 5,000 Units Tablet BY MOUTH 10,000 units DAILY [facility] Administration Vitamin E 400 unit 08/12/24 09:00 08/16/24 09:10 Vitamin E 400 Unit Capsule PO 400 unit DAILY KEL Administration Radiology Results: ITS Impressions Chest X-Ray 08/16/24 10:03 IMPRESSION: 1. Worsened diffuse lung disease, consistent with pulmonary edema versus pneumonia. Soft Tissue Neck CT 08/16/24 16:42 IMPRESSION: 1. Bilateral pleural effusion with adjacent atelectasis versus pneumonia. 2. Pneumonia in the right upper lobe posteriorly. 3. Lymphadenopathy in the mediastinum. 4. Severe degenerative changes of the spine. 5. Sinusitis in the left maxillary and ethmoid sinuses. 6. Atherosclerotic changes of the carotid arteries. 7. Tracheomalacia and bronchomalacia. Labs Labs: Laboratory Results - last 24 hr 08/15/24 08/16/24 08/16/24 20:37 05:46 07:53 WBC 12.2 H RBC 3.03 L Hgb 9.8 L Hct 29.8 L MCV 98.3 MCH 32.3 MCHC 32.9 RDW 13.8 Plt Count 277 MPV 10.0 Immature Gran % (Auto) 3.0 H Neut % (Auto) 70.8 Lymph % (Auto) 17.0 L [place] % (Auto) 6.6 Eos % (Auto) 2.1 Baso % (Auto) 0.5 Lymph # (Auto) 2.08 [place] # (Auto) 0.8 H Eos # (Auto) 0.3 Baso # (Auto) 0.1 Abs Immat Gran (auto) 0.37 H Absolute Neuts (auto) 8.6 H Absolute Nucleated RBC 0.000 Nucleated RBC % 0.0 Sodium 137 Potassium 4.2 Chloride 101 Carbon Dioxide 31 H Anion Gap 5 BUN 21 H Creatinine 0.74 Estim Creat Clear Calc 44 Estimated GFR > 60 Glucose 171 H POC Capillary Glucose 174 H 179 H Calcium 9.4 Magnesium 1.8 Total Bilirubin 0.4 AST 23 ALT 17 Alkaline Phosphatase 74 Total Protein 7.0 Albumin 3.0 L 08/16/24 08/16/24 11:51 16:54 WBC RBC Hgb Hct MCV MCH MCHC RDW Plt Count MPV Immature Gran % (Auto) Neut % (Auto) Lymph % (Auto) [place] % (Auto) Eos % (Auto) Baso % (Auto) Lymph # (Auto) [place] # (Auto) Eos # (Auto) Baso # (Auto) Abs Immat Gran (auto) Absolute Neuts (auto) Absolute Nucleated RBC Nucleated RBC % Sodium Potassium Chloride Carbon Dioxide Anion Gap BUN Creatinine Estim Creat Clear Calc Estimated GFR Glucose POC Capillary Glucose 176 H 262 H Calcium Magnesium Total Bilirubin AST ALT Alkaline Phosphatase Total Protein Albumin Quality VTE Prophylaxis VTE prophylaxis: pharmacologic ordered (Lovenox 40 mg subq day.) Hospitalist MIPS Advance Care Plan I have confirmed that the patient's Advanced Care Plan is present, code status is documented, or surrogate decision maker is listed in patient medical record.: Yes Medication Reconciliation I have utilized all available resources to obtain, update and review the patients current medications (includes all prescriptions, OTC, herbals, cannabis, and nutritional supplements).: Yes
[2024-08-16] MEDS: CEFEPIME 2 GM/NS 50 ML 2 GM/50 ML BAG IVPB (18:41)
[2024-08-16 20:11] LABS: MRSA (PCR) NOT DETECTED (NOT DETECTE)
[2024-08-16] MEDS: FLUTICASONE/SALMETEROL 115-21 MCG INHALER 1 PUFF 2 PUFF INHALATION (20:32)
[2024-08-16 20:39] LABS: Glucose Point of Care 298 mg/dl (65-105)
[2024-08-16] MEDS: MELATONIN 3 MG TABLET PO (22:01)
[2024-08-16] MEDS: PRAVASTATIN SODIUM 20 MG TABLET 80 MG PO (22:01)
[2024-08-16] MEDS: metroNIDAZOLE 500 MG/ISO 100ML 500 MG/100 ML BAG 100 MG IVPB (22:28)
[2024-08-17] VITALS (11 sets, daily range): BP systolic 116–122; BP diastolic 61–69; PULSE 81–116; RESP 18–20; TEMP 36.4–36.9; O2SAT 91–96
[2024-08-17] MEDS: VANCOMYCIN 1,250 MG/NS 250 ML 1,250 MG/250 ML BAG 166.67 MG IVPB
[2024-08-17] MEDS: VANCOMYCIN 1,000 MG/NS 250 ML 1,000 MG/250 ML BAG 250 MG IVPB (02:43)
[2024-08-17] MEDS: IPRATROPIUM 0.5 MG/ALBUTEROL SULFATE 2.5 MG AMPUL.NEB 3 ML INHALATION ×4 (03:40→21:01)
[2024-08-17] MEDS: methylPREDNISolone SOD SUCC 125 MG VIAL 60 MG IV PUSH ×2 (05:22)
[2024-08-17] MEDS: CEFEPIME 2 GM/NS 50 ML 2 GM/50 ML BAG IVPB (05:22)
[2024-08-17] MEDS: LEVOTHYROXINE SODIUM 25 MCG TABLET PO (05:23)
[2024-08-17] MEDS: metroNIDAZOLE 500 MG/ISO 100ML 500 MG/100 ML BAG 100 MG IVPB (06:13)
[2024-08-17 06:30] LABS: Basophils Percent Auto 0.2 % (0.2-1.2); Eosinophils Percent Auto 0.1 % (0-4.4); Hematocrit 30.9 % (37.0-47.0); Hemoglobin 10.1 g/dL (12.0-15.0); Immature Granulocyte Absolute 0.21 K/mm3 (0.00-0.031); Immature Granulocyte Percent A 2.3 % (0-0.5); Mean Corpuscular HGB Conc 32.7 g/dl (32-36); Mean Corpuscular Hemoglobin 31.9 pg (26-34); Mean Corpuscular Volume 97.5 fl (80-100); Monocytes Absolute Auto 0.1 K/mm3 (0.1-0.6); Neutrophils Absolute Auto 7.8 K/mm3 (1.3-6.7); Neutrophils Percent Auto 86.4 % (45.5-73.1); Platelet Count Result 267 k/mm3 (150-375); Red Blood Count 3.17 M/mm3 (4.2-5.4); Red Cell Distribution Width 13.6 % (11.5-14.5)
[2024-08-17 06:39] LABS: Alanine Aminotransferase 18 U/L (6-35); Albumin Level 3.1 g/dL (3.5-5.1); Alkaline Phosphatase 68 U/L (38-126); Anion Gap 5 mmol/L (4-12); Aspartate Amino Transferase 23 U/L (14-36); Bilirubin,Total 0.4 mg/dL (0.2-1.3); Blood Urea Nitrogen 26 mg/dL (7-17); Carbon Dioxide 31 mmol/L (22-30); Chloride 99 mmol/L (98-107); Estimated CRCL calculation 41 ml/min; Estimated Glomerular Filt Rate > 60; Glucose 272 mg/dL (65-110); Magnesium 1.9 mg/dL (1.6-2.3); Potassium 4.4 mmol/L (3.4-5.0); Sodium 135 mmol/L (137-145)
[2024-08-17 07:16] LABS: Platelet Estimate Adequate (Adequate); Schistocytes None Seen
[2024-08-17] MEDS: FLUTICASONE/SALMETEROL 115-21 MCG INHALER 1 PUFF 2 PUFF INHALATION (08:06)
[2024-08-17 08:17] LABS: Glucose Point of Care 292 mg/dl (65-105)
--- NOTE | 2024-08-17 08:42 | P.PNIM_ITS ---
Progress Note: A&P Assessment and Plan (1) Respiratory syncytial virus (RSV): Qualifiers: RSV infection type: pneumonia Qualified Code(s): J12.1 - Respiratory syncytial virus pneumonia Code(s): B33.8 - Other specified viral diseases Status: Acute Assessment and Plan: * Continue supportive care (2) Community acquired pneumonia: Qualifiers: Laterality: unspecified laterality Qualified Code(s): J18.9 - Pneumonia, unspecified organism Code(s): J18.9 - Pneumonia, unspecified organism Status: Acute Assessment and Plan: * CT soft-tissue showing RUL PNA. * Patient completed 7 days IV Doxycycline and ceftriaxone. * Repeat CXR showing worsened diffuse lung disease, pulmonary edema vs PNA. * Another repeat CXR ordered per pulmonary. * Blood culture grew Staphylococcus hominis. * Started on Vanc, Cefepime and Flagyl 08/16/24. * Floor Attendant consulted. * Continue duoneb q 6. * Guaifenesin 1,200 mg PO q 12. * Benzonatate Q8hrs. * incentive spirometer. * PT/OT (3) Acute hypoxic respiratory failure: Code(s): J96.01 - Acute respiratory failure with hypoxia Status: Acute Assessment and Plan: * Likely related to above vs/+RSV Vs/+bronchomalacia +/vs tracheomalacia. * Continue supplemental O2 now on 2L/NC for sats > 90 %. * Wean O2 as perla to maintain sats > 90 %. * Floor Attendant consulted. (4) Elevated brain natriuretic peptide (BNP) level: Code(s): R79.89 - Other specified abnormal findings of blood chemistry Status: Acute Assessment and Plan: * CXR consistent with possible pulmonary edema. * BNP 4250. * Repeat BNP pending. * TT Echocardiogram showing EF 60-65%. * Given a dose of lasix and we'll consider repeat dose. * Daily weights with I&O's monitoring. (5) Memory loss, short term: Code(s): R41.3 - Other amnesia Status: Acute Assessment and Plan: * Possibly early dementia vs infection vs other. * Mentation appears wnl. (6) Sepsis: Qualifiers: Sepsis type: sepsis due to unspecified organism Sepsis acute organ dysfunction status: with acute organ dysfunction Severe sepsis acute organ dysfunction type: acute respiratory failure Acute respiratory failure type: with hypoxia Severe sepsis shock status: without septic shock Qualified Code(s): A41.9 - Sepsis, unspecified organism; R65.20 - Severe sepsis without septic shock; J96.01 - Acute respiratory failure with hypoxia Code(s): A41.9 - Sepsis, unspecified organism Status: Acute Assessment and Plan: * 08/12/2024 resolved. (7) Diabetes: Qualifiers: Diabetes mellitus type: type 2 Diabetes mellitus terminologist insulin use: without detention use Diabetes mellitus complication status: without complication Qualified Code(s): E11.9 - Type 2 diabetes mellitus without complications Code(s): E11.9 - Type 2 diabetes mellitus without complications Status: Acute Assessment and Plan: * Fairly well controlled during the day with some elevations in PM. * We'll start on SSI. * Continue diabetic diet. * Adjust insulin as needed for optimal blood-glucose control. (8) Iron deficiency anemia: Code(s): D50.9 - Iron deficiency anemia, unspecified Status: Acute Assessment and Plan: * Hgb appears stable. * Continue to monitor closely. * No overt bleeding signs noted. * Seen by hematology and we appreciate assistance. Time Spent With Patient Time with patient: 15 - 25 minutes Subjective Date/time seen: 08/17/24 08:42 Patient states she had a better night with not much coughing. States still gets SOB with minimal exertion and has intermittent moist coughs this AM. Interval history: Patient on bedrest with intermittent coughs. Labored breathing with minimal exertion. Patient admitted for acute hypoxic respiratory failure likely secondary to PNA +/VS obstructive pulmonary disease vs other. Review of Systems Review of Systems: All systems reviewed & are unremarkable except as noted in HPI and below Exam Narrative: General: Fair appearing, generalized muscle weakness. HEENT: PERRL, sclerae nonicteric, pharyngeal mucosa pink and intact NECK: No JVD CHEST: Mildly tachypneic. Coarse breath sounds throughout. HEART: RRR, no murmurs ABDOMEN: BS+, soft, nontender, non-distended. EXTREMITIES: 2+ pitting edema of chas. feet. NEUROLOGIC: Well oriented. CN II-XII grossly intact. PSYCH: Alert. Oriented to person, place, time and situation. Objective Data Vital Signs Vital Signs: Vital Signs - 24 hr 08/16/24 09:10 08/16/24 09:10 08/16/24 13:40 Temperature Pulse Rate 92 86 Respiratory Rate 18 Blood Pressure Pulse Oximetry 98 Oxygen Delivery Nasal Cannula Oxygen Flow Rate 2 08/16/24 14:00 08/16/24 20:33 08/16/24 20:35 Temperature 97.6 F Pulse Rate 118 H 92 Respiratory Rate 22 H 22 H 22 H Blood Pressure 127/64 Pulse Oximetry 92 97 Oxygen Delivery Nasal Cannula Oxygen Flow Rate 2 08/16/24 21:20 08/16/24 22:00 08/17/24 06:00 Temperature 98.3 F 98.4 F Pulse Rate 116 H 88 Respiratory Rate 18 18 Blood Pressure 150/85 H 122/65 Pulse Oximetry 95 95 96 Oxygen Delivery Nasal Cannula Oxygen Flow Rate 2 08/17/24 08:07 08/17/24 08:07 08/17/24 08:17 Temperature Pulse Rate 83 81 Respiratory Rate 20 20 Blood Pressure Pulse Oximetry 91 Oxygen Delivery Nasal Cannula Oxygen Flow Rate 2 Intake/Output Intake/Output: Intake & Output 08/14/24 08/15/24 08/16/24 08/17/24 23:59 23:59 23:59 23:59 Intake Total 1820 1620 2390 650 Output Total 1600 467 445 3907 Balance 405 383 7193 -740 Meds/Results Medications: Active Medications Generic Name Dose Route Start Last Admin Trade Name Jaq PRN Reason Stop Dose Admin Acetaminophen 650 mg 08/11/24 19:48 08/15/24 12:07 Acetaminophen 325 Mg Tablet PO 650 mg Q4H PRN Administration Mild Pain (1-3) or Fever Albuterol/Ipratropium 3 ml 08/12/24 08:00 08/17/24 08:03 Ipratropium 0.5 Mg/Albuterol Sulfate 2.5 Mg Ampul.Neb 3 Ml INHALATION 3 ml Q6HRT KEL Administration Azithromycin 500 mg 08/16/24 09:40 08/16/24 10:02 Azithromycin 250 Mg Tablet PO 500 mg DAILY KEL Administration Benzonatate 200 mg 08/16/24 09:30 08/16/24 17:22 Benzonatate 100 Mg Capsule PO 200 mg TID KEL Administration Dextrose 12.5 gm 08/12/24 00:50 Dextrose 50% 25 Gm/50 Ml Syringe IV PUSH PRN PRN Hypoglycemia Protocol Enoxaparin Sodium 40 mg 08/12/24 09:00 08/16/24 09:11 Enoxaparin 40 Mg/0.4 Ml Syringe SUB-Q 40 mg DAILY KEL Administration Glucagon 1 mg 08/12/24 00:50 Glucagon For Inj 1 Mg Vial IM PRN PRN Hypoglycemia Protocol Glucose 15 gm 08/12/24 00:50 Glucose Oral Gel 15 Gm Of Glucse In 37.5 Gm Tube PO PRN PRN Hypoglycemia Protocol Guaifenesin 1,200 mg 08/12/24 09:00 08/16/24 22:01 Guaifenesin 12 Hr 600 Mg Tabcr PO 1,200 mg Q12HR KEL Administration Hydrochlorothiazide 25 mg 08/13/24 09:30 08/16/24 09:11 Hydrochlorothiazide 25 Mg Tablet PO 25 mg DAILY KEL Administration Dextrose 1,000 mls @ 100 mls/hr 08/12/24 00:50 Dextrose 5% 1,000 Ml IVPB PRN PRN Hypoglycemia Protocol Cefepime HCl 2 gm in 50 mls @ 100 mls/hr 08/16/24 18:00 08/17/24 05:52 Maxipime 2 Gm/Ns 50 Ml IVPB Infused Q12H KEL Infusion Metronidazole 500 mg in 100 mls @ 100 mls/hr 08/16/24 22:00 08/17/24 07:13 Flagyl 500 Mg/Iso Soln 100 Ml IVPB Infused Q8H KEL Infusion Vancomycin HCl 1,250 mg in 250 mls @ 166.667 mls/hr 08/18/24 00:00 Vancomycin 1,250 Mg/Ns 250 Ml IVPB Q24H KEL Insulin Aspart 3 - 6 units 08/12/24 08:00 08/16/24 17:23 Insulin Aspart (*Bkc) 100 Units/Ml SUB-Q 4 units TIDWM KEL Administration Protocol Insulin Aspart 1 - 3 units 08/12/24 21:00 08/16/24 22:02 Insulin Aspart (*Bkc) 100 Units/Ml SUB-Q 2 units HS KEL Administration Protocol Levothyroxine Sodium 25 mcg 08/12/24 06:30 08/17/24 05:23 Levothyroxine Sodium 25 Mcg Tablet PO 25 mcg DAILY@0630 KEL Administration Melatonin 3 mg 08/12/24 21:00 08/16/24 22:01 Melatonin 3 Mg Tablet PO 3 mg HS KEL Administration Methylprednisolone Sodium Succinate 60 mg 08/16/24 12:00 08/17/24 05:22 Methylprednisolone Sod Succ 125 Mg Vial IV PUSH 60 mg Q6HR KEL Administration Metoprolol Succinate 25 mg 08/12/24 09:00 08/16/24 09:10 Metoprolol Succinate Ext Rel 25 Mg Tabcr PO 25 mg DAILY KEL Administration Ondansetron HCl 4 mg 08/11/24 19:48 Ondansetron Inj 4 Mg/2 Ml Vial IV PUSH Q4H PRN Nausea Pioglitazone HCl 45 mg 08/12/24 09:00 08/16/24 09:10 Pioglitazone Hcl 45 Mg Tablet PO 45 mg DAILY KEL Administration Potassium Chloride 10 meq 08/12/24 09:00 08/16/24 09:10 Potassium Chloride 10 Meq Er Tablet PO 10 meq DAILY KEL Administration Pravastatin Sodium 80 mg 08/12/24 21:00 08/16/24 22:01 Pravastatin Sodium 20 Mg Tablet PO 80 mg QHS KEL Administration Fluticasone/Salmeterol 2 puff 08/16/24 20:00 08/17/24 08:06 Fluticasone/Salmeterol 115-21 Mcg Inhaler 1 Puff INHALATION 2 puff Q12HRT KEL Administration Vitamin D 10,000 units 08/12/24 09:00 08/16/24 09:10 Cholecalciferol 5,000 Units Tablet BY MOUTH 10,000 units DAILY KEL Administration Vitamin E 400 unit 08/12/24 09:00 08/16/24 09:10 Vitamin E 400 Unit Capsule PO 400 unit DAILY KEL Administration Radiology Results: ITS Impressions Soft Tissue Neck CT 08/16/24 16:42 IMPRESSION: 1. Bilateral pleural effusion with adjacent atelectasis versus pneumonia. 2. Pneumonia in the right upper lobe posteriorly. 3. Lymphadenopathy in the mediastinum. 4. Severe degenerative changes of the spine. 5. Sinusitis in the left maxillary and ethmoid sinuses. 6. Atherosclerotic changes of the carotid arteries. 7. Tracheomalacia and bronchomalacia. Labs Labs: Laboratory Results - last 24 hr 08/16/24 08/16/24 08/16/24 11:51 16:54 18:47 WBC RBC Hgb Hct MCV MCH MCHC RDW Plt Count MPV Immature Gran % (Auto) Neut % (Auto) Lymph % (Auto) [place] % (Auto) Eos % (Auto) Baso % (Auto) Lymph # (Auto) [place] # (Auto) Eos # (Auto) Baso # (Auto) Abs Immat Gran (auto) Absolute Neuts (auto) Absolute Nucleated RBC Nucleated RBC % Platelet Estimate Schistocytes Sodium Potassium Chloride Carbon Dioxide Anion Gap BUN Creatinine Estim Creat Clear Calc Estimated GFR Glucose POC Capillary Glucose 176 H 262 H Calcium Magnesium Total Bilirubin AST ALT Alkaline Phosphatase Total Protein Albumin Nasal MRSA (PCR) Not detected 08/16/24 08/17/24 08/17/24 20:14 06:13 08:14 WBC 9.0 RBC 3.17 L Hgb 10.1 L Hct 30.9 L MCV 97.5 MCH 31.9 MCHC 32.7 RDW 13.6 Plt Count 267 MPV 10.0 Immature Gran % (Auto) 2.3 H Neut % (Auto) 86.4 H Lymph % (Auto) 10.0 L [place] % (Auto) 1.0 L Eos % (Auto) 0.1 Baso % (Auto) 0.2 Lymph # (Auto) 0.90 [place] # (Auto) 0.1 Eos # (Auto) 0.0 Baso # (Auto) 0.0 Abs Immat Gran (auto) 0.21 H Absolute Neuts (auto) 7.8 H Absolute Nucleated RBC 0.000 Nucleated RBC % 0.0 Platelet Estimate Adequate Schistocytes None seen Sodium 135 L Potassium 4.4 Chloride 99 Carbon Dioxide 31 H Anion Gap 5 BUN 26 H Creatinine 0.80 Estim Creat Clear Calc 41 Estimated GFR > 60 Glucose 272 H POC Capillary Glucose 298 H 292 H Calcium 9.0 Magnesium 1.9 Total Bilirubin 0.4 AST 23 ALT 18 Alkaline Phosphatase 68 Total Protein 7.0 Albumin 3.1 L Nasal MRSA (PCR) Quality VTE Prophylaxis VTE prophylaxis: pharmacologic ordered (Lovenox 40 mg subq day.) Hospitalist MIPS Advance Care Plan I have confirmed that the patient's Advanced Care Plan is present, code status is documented, or surrogate decision maker is listed in patient medical record.: Yes Medication Reconciliation I have utilized all available resources to obtain, update and review the patients current medications (includes all prescriptions, OTC, herbals, cannabis, and nutritional supplements).: Yes
[2024-08-17] MEDS: INSULIN ASPART (*BKC) 100 UNITS/ML SUB-Q ×4 (08:57→21:55)
[2024-08-17] MEDS: CHOLECALCIFEROL 5,000 UNITS TABLET 10000 UNITS BY MOUTH (08:57)
[2024-08-17] MEDS: hydroCHLOROthiazide 25 MG TABLET PO (08:58)
[2024-08-17] MEDS: PIOGLITAZONE HCL 45 MG TABLET PO (08:58)
[2024-08-17] MEDS: BENZONATATE 100 MG CAPSULE 200 MG PO ×3 (08:58→17:34)
[2024-08-17] MEDS: POTASSIUM CHLORIDE 10 MEQ ER TABLET PO (08:58)
[2024-08-17] MEDS: AZITHROMYCIN 250 MG TABLET 500 MG PO (08:58)
[2024-08-17] MEDS: guaiFENesin 12 HR 600 MG TABCR 1200 MG PO ×2 (08:58→21:55)
[2024-08-17] MEDS: ENOXAPARIN 40 MG/0.4 ML SYRINGE SUB-Q (08:58)
[2024-08-17] MEDS: METOPROLOL SUCCINATE EXT REL 25 MG TABCR PO (08:58)
[2024-08-17] MEDS: VITAMIN E 400 UNIT CAPSULE PO (08:58)
[2024-08-17 09:56] LABS: NT Pro B Type Natriuretic Pept 9870 pg/mL (19.9-100)
[2024-08-17 10:05] LABS: Procalcitonin 0.1 ng/mL
--- NOTE | 2024-08-17 11:01 | P.CONPL_ITS ---
Assessment and Plan Assessment and plan (1) Respiratory syncytial virus (RSV): Qualifiers: RSV infection type: pneumonia Qualified Code(s): J12.1 - Respiratory syncytial virus pneumonia Code(s): B33.8 - Other specified viral diseases Status: Acute Assessment and Plan: patient presented with RSV pneumonia on 08/11/2024 and was treated empirically with ceftriaxone x4 days, doxycycline x3 days. Patient was congested and empirically started on Solu-Medrol 60 q.6, given Lasix 20 IV, vancomycin, cefepime and Flagyl on 08/16/2023 For worsening chest x-ray. 08/17/2024: Currently the patient tells me she is breathing somewhat worsened when she presented. She has shortness of breath cough with no phlegm that is worse in the morning. She remains on 2 L with saturation 94%. I decreased her to room air saturations were 93%. The family tells me she breathes much better when she is sitting in a chair. Plan: treatment for RSV pneumonia is supportive. Currently she Is on room air with saturations 93%. Goal saturation 90-94% with oxygen as needed. I will continue DuoNebs q.6 hours, guaifenesin 1200 mg p.o. q.day. I will start EzPAP and Cornet flutter valve to help with atelectasis and help her expectorate. Continue benzonatate [address] Cornejo and family in the room. Will follow with you (2) Acute hypoxic respiratory failure: Code(s): J96.01 - Acute respiratory failure with hypoxia Status: Acute Assessment and Plan: Etiology of patient's hypoxemic respiratory failure includes RSV pneumonia, fluid overload, atelectasis and possible bacterial super infection. I think bacterial super infection is unlikely given the patient's afebrile, no leukocytosis, no significant change in her phlegm production, chest x-ray that is improved overnight, procalcitonin 0.1. The patient was reported to have some wheezing yesterday. Plan: I will discontinue antibiotics for possible bacterial super infection. I will discontinue Solu-Medrol at this time. I will continue DuoNebs q.6 hours. I will repeat Lasix 40 IV today. History of Present Illness History of Present Illness Consult date: 08/17/24 Chief complaint: Community Acquired Pneumonia/RSV Narrative: 08/17/2024: This is a new pulmonary consult for RSV pneumonia 89-year-old with a history of hypertension, hyperlipidemia, left lisa CVA in 2016, arthritis, SVT, thymoma, diabetes. at baseline patient uses a walker and may be walks room to room. Her room air rest saturations at home were 93-94%. She is on no inhaled medications at home. The patient presented on 08/11/2023 with RSV infection. The family in the room says the entire family is getting over a respiratory illness for the last 2 or 3 weeks. Patient was empirically treated with ceftriaxone from 08/11/2019 [phone]. Empirically treated with doxycycline for 08/11/2024-to . On 08/16/2024 the patient had coarse breath sounds, wheezing, difficulty expectorating phlegm and a chest x-ray showed worsening bibasilar infiltrates. The patient was given Lasix, Solu-Medrol, vancomycin, cefepime and Flagyl. Clinically the family noticed no significant change in her overall condition. The patient states she did have a tough time breathing yesterday. Her oxygenation remains stable on 2 L. 08/17/2024: Currently the patient tells me she is breathing somewhat worsened when she presented. She has shortness of breath cough with no phlegm that is worse in the morning. She remains on 2 L with saturation 94%. Her BNP is 9810 Increased from 4250 on 08/11/2024. her procalcitonin is 0.1. Her chest x-ray today shows improved bibasilar interstitial infiltrates with evidence of congestion. DATA: XR chest 1V portable 08/17/2024 08:39 Indication: RSV pneumonia Procedure: AP portable chest Comparison: 08/16/2024 and 08/11/2024 Findings: Diffuse bilateral interstitial infiltrates with peribronchial thickening, improved compared with 08/16/2024, likely edema. No significant effusion. No pneumothorax. There are deformities of both shoulders, likely related to prior trauma and/or advanced degenerative change. Impression: 1: Improved bilateral interstitial infiltrates, likely edema. CT soft tissue neck wo con Ordering provider: Dea Cornejo NP History: 89 years Female with . Neck pain and SOB . Comparison: None. Technique: CT soft tissues neck was performed without contrast. . Automated exposure control and iterative reconstruction technique were employed. The dose- length product was 593.80 mGy-cm. Findings: LOWER HEAD: The visualized brain parenchyma, optic globes/orbits and mastoids are normal. Left maxillary and left ethmoid sinus disease. Otherwise, The visualized paranasal sinuses are well aerated. SALIVARY GLANDS: Normal. THYROID: Normal. SUPRAHYOID DEEP SPACES: Small parapharyngeal lymph nodes are noted. The CAROTID ARTERIES: Bilateral carotid atherosclerotic changes. JUGULAR VEINS: Normal. TONSILS: Normal. ORAL CAVITY: normal as visualized. PHARYNX, LARYNX AND TRACHEA: Patent and normal. No prevertebral soft tissue swelling. SUPERFICIAL SOFT TISSUES: Normal. No lymphadenopathy or neck mass. THORACIC INLET/VISUALIZED UPPER CHEST: Tracheomalacia and bronchomalacia is noted. Bilateral Pleural effusion with adjacent atelectasis. Infiltrate in the right upper lobe posteriorly. Possible nodule or atelectasis versus pneumonia in the left apical area. 3 months follow-up advised. Right paratracheal lymph node is seen measuring 1.5 cm. SKELETAL: Age appropriate degenerative changes superior with narrowing of the disc spaces at all levels. Multilevel facet joint disease. IMPRESSION: 1. Bilateral pleural effusion with adjacent atelectasis versus pneumonia. 2. Pneumonia in the right upper lobe posteriorly. 3. Lymphadenopathy in the mediastinum. 4. Severe degenerative changes of the spine. 5. Sinusitis in the left maxillary and ethmoid sinuses. 6. Atherosclerotic changes of the carotid arteries. 7. Tracheomalacia and bronchomalacia. Review of Systems 2 Constitutional: Constitutional: Reports no additional constitutional complaints Eyes: Eyes: Reports no additional eye complaints ENT: Reports system reviewed and no additional complaints, except as documented Cardiovascular: Cardiovascular: Reports no additional cardiovascular complaints Respiratory: Respiratory: Reports no additional respiratory complaints Gastrointestinal: Gastrointestinal: Reports no additional gastrointestinal complaints Musculoskeletal: Musculoskeletal: Reports no additional musculoskeletal complaints Neurologic: Reports system reviewed and no additional complaints, except as documented Psychiatric: Psychiatric: Reports no additional psychiatric complaints Endocrine: Endocrine: Reports no additional endocrine complaints Hematologic/Lymphatic: Hematologic/Lymphatic: Reports no additional hematologic/lymphatic complaints Allergic/Immunologic: Allergic/Immunologic: Reports no additional allergic/immunologic complaints [facility] Past Medical History Medical History (Updated 08/14/24 @ 14:06 by April Conroy APRN) Thyroid cancer B12 deficiency Hyperlipidemia Hypertension Stroke Arthritis Diabetes Allergies Surgical History Surgical History (Updated 08/11/24 @ 22:43 by Chanda Strange DO) History of thyroidectomy History of cataract surgery (~2020) History of section History of back surgery Family History Family History Father Heart disease Hypertension Other Diabetes mellitus Social History Social History (Updated 08/12/24 @ 08:51 by Chanda Strange DO) Social History: The patient lives with her of 67 years. They raised 5 sons. The patient was a homemaker and artist. The she is a lifelong nonsmoker and does not drink alcohol or use illicit substances. She ambulates with a walker. Code status: Full code Surrogate decision maker: Matt Dillard () Smoking status: Never smoker Alcohol intake: never Substance use: never Substance use type: does not use Do You Feel Safe in your Home?: Yes Lack of Transportation: No Lack of Food: Never True Current Housing: I Have Housing Concerned About Future Housing: No Difficulty Paying Gas/Electric Bills: No Difficulty Paying for Meds: No Currently Unemployed: No Education: Bachelor's Degree Difficulty w/ Childcare or Family Care: No Spiritual care concerns: No Meds Home Medications and Allergies Home Medications ?Medication ?Instructions ?Recorded ?Confirmed ?Type cholecalciferol (vitamin D3) 250 250 mcg PO DAILY 06/04/23 08/11/24 History mcg (10,000 unit) capsule coQ10 (ubiquinol) 100 mg capsule 200 mg PO BID 06/04/23 08/11/24 History (Qunol Rick CoQ10) hydrochlorothiazide 25 mg tablet 25 mg PO DAILY 06/04/23 08/11/24 History metoprolol succinate 25 mg 25 mg PO DAILY 06/04/23 08/11/24 History tablet,extended release 24 hr potassium chloride 10 mEq 10 meq PO DAILY 06/04/23 08/11/24 History capsule,extended release pravastatin 80 mg tablet 80 mg PO QHS 06/04/23 08/11/24 History vitamin E (dl, acetate) 180 mg 180 mg PO DAILY 06/04/23 08/11/24 History (400 unit) capsule coenzyme [id number] lipoic acid-vit 2 cap PO DAILY 12/08/23 08/11/24 History E 30 mg-50 mg-100 unit capsule (Q-GEL with Alpha Lipoic Acid) pioglitazone 45 mg tablet 45 mg PO DAILY #90 tabs 05/24/24 08/11/24 Rx levothyroxine 25 mcg tablet 25 mcg PO DAILY #90 tabs 06/01/24 08/11/24 Rx alpha lipoic acid 100 mg capsule 100 mg PO DAILY 06/13/24 08/11/24 History mecobalamin (vitamin B12) 1 tablet PO .every other day 06/13/24 08/11/24 History Allergies Allergy/AdvReac Type Severity Reaction Status Date / Time lidocaine (From Xylocaine) Allergy Severe Unresponsiv Verified 08/11/24 11:43 e Vital Signs Vital Signs - 24 hr 08/16/24 13:40 08/16/24 14:00 08/16/24 20:33 Temperature 36.4 C Pulse Rate 86 118 H 92 Respiratory Rate 18 22 H 22 H Blood Pressure 127/64 Pulse Oximetry 92 Oxygen Delivery Oxygen Flow Rate 08/16/24 20:35 08/16/24 21:20 08/16/24 22:00 Temperature 36.8 C Pulse Rate 116 H Respiratory Rate 22 H 18 Blood Pressure 150/85 H Pulse Oximetry 97 95 95 Oxygen Delivery Nasal Cannula Nasal Cannula Oxygen Flow Rate 2 2 08/17/24 06:00 08/17/24 08:07 08/17/24 08:07 Temperature 36.9 C Pulse Rate 88 83 Respiratory Rate 18 20 Blood Pressure 122/65 Pulse Oximetry 96 91 Oxygen Delivery Nasal Cannula Oxygen Flow Rate 2 08/17/24 08:17 08/17/24 08:50 08/17/24 08:58 Temperature Pulse Rate 81 102 H Respiratory Rate 20 Blood Pressure Pulse Oximetry 93 Oxygen Delivery Room Air Oxygen Flow Rate Exam 2 Const: Orientation/consciousness: oriented to person, oriented to place and oriented to time Other: mild distress. HENMT: Head: normal to inspection Ears: hearing grossly normal bilaterally Eyes: General: appearance normal, both eyes and all related structures Neck: Neck: normal visual inspection Chest: Chest palpation & inspection: normal inspection of the chest Resp: Effort & Inspection: normal respiratory effort and able to speak in complete sentences Auscultation: crackles, no rales, rhonchi, no wheezes and lung sounds not diminished Cardio: Jugular venous distension: no JVD GI: Inspection: normal to inspection GI Palp: No abdominal tenderness Skin: General skin exam: normal color Neuro: General: oriented to person, oriented to place and oriented to time Extrem: General: normal to inspection and edema Psych: Appearance: grossly normal Results Laboratory Findings 08/17/24 06:13 08/17/24 06:13 Abnormal lab findings: Abnormal Labs 08/11/24 08/12/24 08/12/24 18:23 06:04 08:30 WBC 12.3 H 11.3 H RBC 3.46 L 3.23 L Hgb 11.2 L 10.3 L Hct 33.2 L 31.2 L MPV 10.6 H Immature Gran % (Auto) Neut % (Auto) Lymph % (Auto) Pickett % (Auto) Pickett # (Auto) Abs Immat Gran (auto) Absolute Neuts (auto) Neutrophils % (Manual) 76 H Band Neutrophils % 13 H Lymphocytes % (Manual) 13 L 8 L Monocytes % (Manual) Abs Neuts (Manual) 9.59 H 10.05 H Abs Lymphs (Manual) 0.90 L Abs Monocytes (Manual) 0.98 H Sodium 133 L 132 L Potassium Carbon Dioxide Anion Gap 2 L BUN 23 H 22 H Glucose 212 H 171 H POC Capillary Glucose 157 H Hemoglobin A1c Iron TIBC % Saturation NT-Pro-B Natriuret Pep 4250 H Total Protein Albumin Vitamin B12 RSV (RT-PCR) Positive A 08/12/24 08/12/24 08/12/24 12:34 17:11 21:03 WBC RBC Hgb Hct MPV Immature Gran % (Auto) Neut % (Auto) Lymph % (Auto) Pickett % (Auto) Pickett # (Auto) Abs Immat Gran (auto) Absolute Neuts (auto) Neutrophils % (Manual) Band Neutrophils % Lymphocytes % (Manual) Monocytes % (Manual) Abs Neuts (Manual) Abs Lymphs (Manual) Abs Monocytes (Manual) Sodium Potassium Carbon Dioxide Anion Gap BUN Glucose POC Capillary Glucose 160 H 186 H 166 H Hemoglobin A1c Iron TIBC % Saturation NT-Pro-B Natriuret Pep Total Protein Albumin Vitamin B12 RSV (RT-PCR) 08/13/24 08/13/24 08/13/24 06:05 07:43 09:20 WBC 12.7 H RBC 3.05 L Hgb 9.8 L Hct 29.1 L MPV Immature Gran % (Auto) Neut % (Auto) Lymph % (Auto) Pickett % (Auto) Pickett # (Auto) Abs Immat Gran (auto) Absolute Neuts (auto) Neutrophils % (Manual) 3 L Band Neutrophils % 13 H Lymphocytes % (Manual) 1 L Monocytes % (Manual) Abs Neuts (Manual) Abs Lymphs (Manual) 0.12 L Abs Monocytes (Manual) Sodium 131 L Potassium Carbon Dioxide Anion Gap BUN 22 H Glucose 142 H POC Capillary Glucose 160 H Hemoglobin A1c 7.1 H Iron 30 L TIBC 227 L % Saturation 13 L NT-Pro-B Natriuret Pep Total Protein Albumin Vitamin B12 > 1000.0 H RSV (RT-PCR) 08/13/24 08/13/24 08/13/24 12:55 16:59 21:09 WBC RBC Hgb Hct MPV Immature Gran % (Auto) Neut % (Auto) Lymph % (Auto) Pickett % (Auto) Pickett # (Auto) Abs Immat Gran (auto) Absolute Neuts (auto) Neutrophils % (Manual) Band Neutrophils % Lymphocytes % (Manual) Monocytes % (Manual) Abs Neuts (Manual) Abs Lymphs (Manual) Abs Monocytes (Manual) Sodium Potassium Carbon Dioxide Anion Gap BUN Glucose POC Capillary Glucose 195 H 159 H 214 H Hemoglobin A1c Iron TIBC % Saturation NT-Pro-B Natriuret Pep Total Protein Albumin Vitamin B12 RSV (RT-PCR) 08/14/24 08/14/24 08/14/24 04:52 08:16 11:37 WBC 11.5 H RBC 3.02 L Hgb 9.7 L Hct 28.8 L MPV Immature Gran % (Auto) Neut % (Auto) Lymph % (Auto) Pickett % (Auto) Pickett # (Auto) Abs Immat Gran (auto) Absolute Neuts (auto) Neutrophils % (Manual) 75 H Band Neutrophils % 9 H Lymphocytes % (Manual) 10 L Monocytes % (Manual) 2 L Abs Neuts (Manual) 9.66 H Abs Lymphs (Manual) Abs Monocytes (Manual) Sodium 133 L Potassium 3.3 L Carbon Dioxide Anion Gap 3 L BUN 22 H Glucose 155 H POC Capillary Glucose 207 H 200 H Hemoglobin A1c Iron TIBC % Saturation NT-Pro-B Natriuret Pep Total Protein 6.0 L Albumin 3.0 L Vitamin B12 RSV (RT-PCR) 08/14/24 08/14/24 08/15/24 17:00 19:35 05:37 WBC 12.1 H RBC 3.09 L Hgb 9.7 L Hct 29.9 L MPV Immature Gran % (Auto) 4.1 H Neut % (Auto) Lymph % (Auto) Pickett % (Auto) Pickett # (Auto) 0.9 H Abs Immat Gran (auto) 0.49 H Absolute Neuts (auto) 8.1 H Neutrophils % (Manual) Band Neutrophils % Lymphocytes % (Manual) Monocytes % (Manual) Abs Neuts (Manual) Abs Lymphs (Manual) Abs Monocytes (Manual) Sodium 136 L Potassium Carbon Dioxide Anion Gap BUN 23 H Glucose 172 H POC Capillary Glucose 203 H 188 H Hemoglobin A1c Iron TIBC % Saturation NT-Pro-B Natriuret Pep Total Protein 6.0 L Albumin 3.0 L Vitamin B12 RSV (RT-PCR) 08/15/24 08/15/24 08/15/24 08:07 13:05 17:17 WBC RBC Hgb Hct MPV Immature Gran % (Auto) Neut % (Auto) Lymph % (Auto) Pickett % (Auto) Pickett # (Auto) Abs Immat Gran (auto) Absolute Neuts (auto) Neutrophils % (Manual) Band Neutrophils % Lymphocytes % (Manual) Monocytes % (Manual) Abs Neuts (Manual) Abs Lymphs (Manual) Abs Monocytes (Manual) Sodium Potassium Carbon Dioxide Anion Gap BUN Glucose POC Capillary Glucose 177 H 195 H 202 H Hemoglobin A1c Iron TIBC % Saturation NT-Pro-B Natriuret Pep Total Protein Albumin Vitamin B12 RSV (RT-PCR) 08/15/24 08/16/24 08/16/24 20:37 05:46 07:53 WBC 12.2 H RBC 3.03 L Hgb 9.8 L Hct 29.8 L MPV Immature Gran % (Auto) 3.0 H Neut % (Auto) Lymph % (Auto) 17.0 L Pickett % (Auto) Pickett # (Auto) 0.8 H Abs Immat Gran (auto) 0.37 H Absolute Neuts (auto) 8.6 H Neutrophils % (Manual) Band Neutrophils % Lymphocytes % (Manual) Monocytes % (Manual) Abs Neuts (Manual) Abs Lymphs (Manual) Abs Monocytes (Manual) Sodium Potassium Carbon Dioxide 31 H Anion Gap BUN 21 H Glucose 171 H POC Capillary Glucose 174 H 179 H Hemoglobin A1c Iron TIBC % Saturation NT-Pro-B Natriuret Pep Total Protein Albumin 3.0 L Vitamin B12 RSV (RT-PCR) 08/16/24 08/16/24 08/16/24 11:51 16:54 20:14 WBC RBC Hgb Hct MPV Immature Gran % (Auto) Neut % (Auto) Lymph % (Auto) Pickett % (Auto) Pickett # (Auto) Abs Immat Gran (auto) Absolute Neuts (auto) Neutrophils % (Manual) Band Neutrophils % Lymphocytes % (Manual) Monocytes % (Manual) Abs Neuts (Manual) Abs Lymphs (Manual) Abs Monocytes (Manual) Sodium Potassium Carbon Dioxide Anion Gap BUN Glucose POC Capillary Glucose 176 H 262 H 298 H Hemoglobin A1c Iron TIBC % Saturation NT-Pro-B Natriuret Pep Total Protein Albumin Vitamin B12 RSV (RT-PCR) 08/17/24 08/17/24 08/17/24 06:09 06:13 08:14 WBC RBC 3.17 L Hgb 10.1 L Hct 30.9 L MPV Immature Gran % (Auto) 2.3 H Neut % (Auto) 86.4 H Lymph % (Auto) 10.0 L Pickett % (Auto) 1.0 L Pickett # (Auto) Abs Immat Gran (auto) 0.21 H Absolute Neuts (auto) 7.8 H Neutrophils % (Manual) Band Neutrophils % Lymphocytes % (Manual) Monocytes % (Manual) Abs Neuts (Manual) Abs Lymphs (Manual) Abs Monocytes (Manual) Sodium 135 L Potassium Carbon Dioxide 31 H Anion Gap BUN 26 H Glucose 272 H POC Capillary Glucose 292 H Hemoglobin A1c Iron TIBC % Saturation NT-Pro-B Natriuret Pep 9870 H Total Protein Albumin 3.1 L Vitamin B12 RSV (RT-PCR) Diagnostic Findings Additional studies: ITS Impressions Chest X-Ray 08/11/24 15:32 IMPRESSION: 1. Airspace opacities in the mid and lower lung zones, consistent with atelectasis versus pneumonia versus chronic lung disease. Chest X-Ray 08/16/24 10:03 IMPRESSION: 1. Worsened diffuse lung disease, consistent with pulmonary edema versus pneumonia. Soft Tissue Neck CT 08/16/24 16:42 IMPRESSION: 1. Bilateral pleural effusion with adjacent atelectasis versus pneumonia. 2. Pneumonia in the right upper lobe posteriorly. 3. Lymphadenopathy in the mediastinum. 4. Severe degenerative changes of the spine. 5. Sinusitis in the left maxillary and ethmoid sinuses. 6. Atherosclerotic changes of the carotid arteries. 7. Tracheomalacia and bronchomalacia. Chest X-Ray 08/17/24 09:56 Impression: 1: Improved bilateral interstitial infiltrates, likely edema.
[2024-08-17 11:59] LABS: Glucose Point of Care 282 mg/dl (65-105)
[2024-08-17] MEDS: FUROSEMIDE INJ 40 MG/4 ML VIAL IV PUSH (12:04)
[2024-08-17 17:12] LABS: Glucose Point of Care 301 mg/dl (65-105)
[2024-08-17 21:07] LABS: Glucose Point of Care 289 mg/dl (65-105)
[2024-08-17] MEDS: PRAVASTATIN SODIUM 20 MG TABLET 80 MG PO (21:54)
[2024-08-17] MEDS: MELATONIN 3 MG TABLET PO (21:55)
[2024-08-18] VITALS (15 sets, daily range): BP systolic 111–124; BP diastolic 61; PULSE 80–117; RESP 20; TEMP 36.3–37.2; O2SAT 90–94
[2024-08-18] MEDS: IPRATROPIUM 0.5 MG/ALBUTEROL SULFATE 2.5 MG AMPUL.NEB 3 ML INHALATION ×4 (02:49→20:00)
[2024-08-18] MEDS: LEVOTHYROXINE SODIUM 25 MCG TABLET PO (05:31)
[2024-08-18 05:32] LABS: Basophils Percent Auto 0.2 % (0.2-1.2); Eosinophils Percent Auto 0.1 % (0-4.4); Hematocrit 28.8 % (37.0-47.0); Hemoglobin 9.3 g/dL (12.0-15.0); Immature Granulocyte Absolute 0.14 K/mm3 (0.00-0.031); Immature Granulocyte Percent A 1.1 % (0-0.5); Lymphocytes Percent Auto 14.8 % (18.3-44.2); Mean Corpuscular HGB Conc 32.3 g/dl (32-36); Mean Corpuscular Hemoglobin 31.1 pg (26-34); Mean Corpuscular Volume 96.3 fl (80-100); Mean Platelet Volume 10.2 fl (7.4-10.4); Monocytes Absolute Auto 0.8 K/mm3 (0.1-0.6); Monocytes Percent Auto 6.6 % (2.6-8.5); Neutrophils Absolute Auto 9.4 K/mm3 (1.3-6.7); Neutrophils Percent Auto 77.2 % (45.5-73.1); Platelet Count Result 292 k/mm3 (150-375); Red Blood Count 2.99 M/mm3 (4.2-5.4); Red Cell Distribution Width 13.7 % (11.5-14.5); White Blood Count 12.2 K/mm3 (4.5-10.0)
[2024-08-18 06:02] LABS: Alanine Aminotransferase 21 U/L (6-35); Albumin Level 3.1 g/dL (3.5-5.1); Alkaline Phosphatase 61 U/L (38-126); Anion Gap 9 mmol/L (4-12); Aspartate Amino Transferase 59 U/L (14-36); Bilirubin,Total 0.4 mg/dL (0.2-1.3); Blood Urea Nitrogen 43 mg/dL (7-17); Calcium 9.5 mg/dL (8.4-10.2); Carbon Dioxide 28 mmol/L (22-30); Chloride 97 mmol/L (98-107); Estimated CRCL calculation 31 ml/min; Estimated Glomerular Filt Rate 47; Glucose 172 mg/dL (65-110); Magnesium 1.8 mg/dL (1.6-2.3); Potassium 3.7 mmol/L (3.4-5.0); Sodium 134 mmol/L (137-145)
[2024-08-18 07:59] LABS: Glucose Point of Care 163 mg/dl (65-105)
[2024-08-18] MEDS: CHOLECALCIFEROL 5,000 UNITS TABLET 10000 UNITS BY MOUTH (08:51)
[2024-08-18] MEDS: METOPROLOL SUCCINATE EXT REL 25 MG TABCR PO (08:51)
[2024-08-18] MEDS: VITAMIN E 400 UNIT CAPSULE PO (08:51)
[2024-08-18] MEDS: hydroCHLOROthiazide 25 MG TABLET PO (08:51)
[2024-08-18] MEDS: POTASSIUM CHLORIDE 10 MEQ ER TABLET PO (08:51)
[2024-08-18] MEDS: PIOGLITAZONE HCL 45 MG TABLET PO (08:51)
[2024-08-18] MEDS: guaiFENesin 12 HR 600 MG TABCR 1200 MG PO ×2 (08:51→21:17)
[2024-08-18] MEDS: BENZONATATE 100 MG CAPSULE 200 MG PO ×3 (08:51→17:22)
[2024-08-18] MEDS: ENOXAPARIN 40 MG/0.4 ML SYRINGE SUB-Q (08:52)
[2024-08-18] MEDS: FUROSEMIDE INJ 40 MG/4 ML VIAL IV PUSH (08:52)
--- NOTE | 2024-08-18 10:14 | PM.PNPUL ---
Progress Note: A&P Assessment and Plan (1) Respiratory syncytial virus (RSV): Qualifiers: RSV infection type: pneumonia Qualified Code(s): J12.1 - Respiratory syncytial virus pneumonia Code(s): B33.8 - Other specified viral diseases Status: Acute Assessment and Plan: patient presented with RSV pneumonia on 08/11/2024 and was treated empirically with ceftriaxone x4 days, doxycycline x3 days. Patient was congested and empirically started on Solu-Medrol 60 q.6, given Lasix 20 IV, vancomycin, cefepime and Flagyl on 08/16/2023 For worsening chest x-ray. 08/17/2024: Currently the patient tells me she is breathing somewhat worsened when she presented. She has shortness of breath cough with no phlegm that is worse in the morning. She remains on 2 L with saturation 94%. I decreased her to room air saturations were 93%. The family tells me she breathes much better when she is sitting in a chair. Plan: treatment for RSV pneumonia is supportive. Currently she Is on room air with saturations 93%. Goal saturation 90-94% with oxygen as needed. I will continue DuoNebs q.6 hours, guaifenesin 1200 mg p.o. BID. I will start EzPAP and Cornet flutter valve to help with atelectasis and help her expectorate. Continue benzonatate 200 TID. 08/18/2024: Overall the patient feels about the same. She tells me her breathing is normal for her and she always breathes rapidly. Her confirms this. Her cough is the same only it is dry. The tells me the cough is better over the last 2-3 days. Patient is on room air with saturations 90%. White blood cell count 12.2, creatinine 1.09. Patient receive 40 IV Lasix yesterday and was net -20 mL. Her she is cumulative positive 5.1 L and her weight today is 88.6 with an admission weight of 86.9. Plan: Supportive care for RSV. She is on room air. Continue DuoNebs q.6, guaifenesin 1200 b.i.d., benzonatate 200 t.i.d. the tells me she had difficulty with the EzPAP although the respiratory therapy note says she tolerated this fair . Have discussed with the bedside nurse will discuss with respiratory therapy and they will monitor her during the next session. Prior to discharge, patient should have formal home O2 assessment prior to discharge an overnight oximetry with oxygen adjusted accordingly. when she is discharged the bronchodilators, guaifenesin and benzonatate can be changed to p.r.n.. Discussed with Dr. Cornejo and family in the room, will sign off, call with questions. (2) Acute hypoxic respiratory failure: Code(s): J96.01 - Acute respiratory failure with hypoxia Status: Acute Assessment and Plan: Etiology of patient's hypoxemic respiratory failure includes RSV pneumonia, fluid overload, atelectasis and possible bacterial super infection. 08/17/24: I think bacterial super infection is unlikely given the patient's afebrile, no leukocytosis, no significant change in her phlegm production, chest x-ray that is improved overnight, procalcitonin 0.1. The patient was reported to have some wheezing yesterday. Plan: I will discontinue antibiotics for possible bacterial super infection. I will discontinue Solu-Medrol at this time. I will continue DuoNebs q.6 hours. I will repeat Lasix 40 IV today. 08/18/24: Patient has remained clinically stable off steroids and antibiotics. She remains on room air. Plan: Continue to follow the patient clinically off steroids and antibiotics at this time. Patient receive 40 IV Lasix yesterday and was net -20 mL. Her she is cumulative positive 5.1 L and her weight today is 88.6 with an admission weight of 86.9. She has bilateral pleural effusions, pedal edema, elevated BNP and I will continue 40 of Lasix IV.. Subjective Date/time seen: 08/18/24 10:14 Interval history: 08/17/2024: This is a new pulmonary consult for RSV pneumonia 89-year-old with a history of hypertension, hyperlipidemia, left lisa CVA in 2016, arthritis, SVT, thymoma, diabetes. at baseline patient uses a walker and may be walks room to room. Her room air rest saturations at home were 93-94%. She is on no inhaled medications at home. The patient presented on 08/11/2023 with RSV infection. The family in the room says the entire family is getting over a respiratory illness for the last 2 or 3 weeks. Patient was empirically treated with ceftriaxone from 08/11/[phone]. Empirically treated with doxycycline for 08/11/2024-to . On 08/16/2024 the patient had coarse breath sounds, wheezing, difficulty expectorating phlegm and a chest x-ray showed worsening bibasilar infiltrates. The patient was given Lasix, Solu-Medrol, vancomycin, cefepime and Flagyl. Clinically the family noticed no significant change in her overall condition. The patient states she did have a tough time breathing yesterday. Her oxygenation remains stable on 2 L. 08/17/2024: Currently the patient tells me she is breathing somewhat worsened when she presented. She has shortness of breath cough with no phlegm that is worse in the morning. She remains on 2 L with saturation 94%. Her BNP is 9810 Increased from 4250 on 08/11/2024. her procalcitonin is 0.1. Her chest x-ray today shows improved bibasilar interstitial infiltrates with evidence of congestion. 08/18/2024: Overall the patient feels about the same. She tells me her breathing is normal for her and she always breathes rapidly. Her confirms this. Her cough is the same only it is dry. The tells me the cough is better over the last 2-3 days. Patient is on room air with saturations 90%. White blood cell count 12.2, creatinine 1.09. Patient receive 40 IV Lasix yesterday and was net -20 mL. Her she is cumulative positive 5.1 L and her weight today is 88.6 with an admission weight of 86.9. DATA: XR chest 1V portable 08/17/2024 08:39 Indication: RSV pneumonia Procedure: AP portable chest Comparison: 08/16/2024 and 08/11/2024 Findings: Diffuse bilateral interstitial infiltrates with peribronchial thickening, improved compared with 08/16/2024, likely edema. No significant effusion. No pneumothorax. There are deformities of both shoulders, likely related to prior trauma and/or advanced degenerative change. Impression: 1: Improved bilateral interstitial infiltrates, likely edema. CT soft tissue neck wo con Ordering provider: Dea Cornejo NP History: 89 years Female with . Neck pain and SOB . Comparison: None. Technique: CT soft tissues neck was performed without contrast. . Automated exposure control and iterative reconstruction technique were employed. The dose-length product was 593.80 mGy-cm. Findings: LOWER HEAD: The visualized brain parenchyma, optic globes/orbits and mastoids are normal. Left maxillary and left ethmoid sinus disease. Otherwise, The visualized paranasal sinuses are well aerated. SALIVARY GLANDS: Normal. THYROID: Normal. SUPRAHYOID DEEP SPACES: Small parapharyngeal lymph nodes are noted. The CAROTID ARTERIES: Bilateral carotid atherosclerotic changes. JUGULAR VEINS: Normal. TONSILS: Normal. ORAL CAVITY: normal as visualized. PHARYNX, LARYNX AND TRACHEA: Patent and normal. No prevertebral soft tissue swelling. SUPERFICIAL SOFT TISSUES: Normal. No lymphadenopathy or neck mass. THORACIC INLET/VISUALIZED UPPER CHEST: Tracheomalacia and bronchomalacia is noted. Bilateral Pleural effusion with adjacent atelectasis. Infiltrate in the right upper lobe posteriorly. Possible nodule or atelectasis versus pneumonia in the left apical area. 3 months follow-up advised. Right paratracheal lymph node is seen measuring 1.5 cm. SKELETAL: Age appropriate degenerative changes superior with narrowing of the disc spaces at all levels. Multilevel facet joint disease. IMPRESSION: 1. Bilateral pleural effusion with adjacent atelectasis versus pneumonia. 2. Pneumonia in the right upper lobe posteriorly. 3. Lymphadenopathy in the mediastinum. 4. Severe degenerative changes of the spine. 5. Sinusitis in the left maxillary and ethmoid sinuses. 6. Atherosclerotic changes of the carotid arteries. 7. Tracheomalacia and bronchomalacia. Review of Systems Constitutional: Constitutional: Reports no additional constitutional complaints Eyes: Eyes: Reports no additional eye complaints ENT: Reports system reviewed and no additional complaints, except as documented Cardiovascular: Cardiovascular: Reports no additional cardiovascular complaints Respiratory: Respiratory: Reports no additional respiratory complaints Gastrointestinal: Gastrointestinal: Reports no additional gastrointestinal complaints Musculoskeletal: Musculoskeletal: Reports no additional musculoskeletal complaints Neurologic: Reports system reviewed and no additional complaints, except as documented Psychiatric: Psychiatric: Reports no additional psychiatric complaints Endocrine: Endocrine: Reports no additional endocrine complaints Hematologic/Lymphatic: Hematologic/Lymphatic: Reports no additional hematologic/lymphatic complaints Allergic/Immunologic: Allergic/Immunologic: Reports no additional allergic/immunologic complaints Exam Const: Orientation/consciousness: oriented to person, oriented to place and oriented to time Other: mild distress. HENMT: Head: normal to inspection Ears: hearing grossly normal bilaterally Eyes: General: appearance normal, both eyes and all related structures Neck: Neck: normal visual inspection Chest: Chest palpation & inspection: normal inspection of the chest Resp: Effort & Inspection: normal respiratory effort and able to speak in complete sentences Auscultation: crackles, no rales, rhonchi, no wheezes and lung sounds not diminished Cardio: Jugular venous distension: no JVD GI: Inspection: normal to inspection Skin: General skin exam: normal color Neuro: General: oriented to person, oriented to place and oriented to time Extrem: General: normal to inspection and edema Psych: Appearance: grossly normal Objective Data Vital Signs Vital Signs: Vital Signs - 24 hr 08/17/24 13:31 08/17/24 13:49 08/17/24 14:00 Temperature 36.4 C Pulse Rate 88 81 107 H Respiratory Rate 20 20 18 Blood Pressure 116/61 Pulse Oximetry 94 Oxygen Delivery Fraction of Inspired Oxygen 08/17/24 20:00 08/17/24 20:49 08/17/24 21:02 Temperature 36.9 C Pulse Rate 116 H 88 Respiratory Rate 20 20 Blood Pressure 119/69 Pulse Oximetry 94 Oxygen Delivery Room Air Fraction of Inspired Oxygen 08/17/24 21:13 08/18/24 02:50 08/18/24 02:58 Temperature Pulse Rate 88 88 80 Respiratory Rate 20 20 20 Blood Pressure Pulse Oximetry Oxygen Delivery Fraction of Inspired Oxygen 08/18/24 05:01 08/18/24 08:43 08/18/24 08:43 Temperature 36.7 C Pulse Rate 104 H 112 H Respiratory Rate 20 20 Blood Pressure 111/61 Pulse Oximetry 92 90 Oxygen Delivery Room Air Fraction of Inspired Oxygen 21 08/18/24 08:50 08/18/24 08:51 08/18/24 08:54 Temperature Pulse Rate 98 110 H Respiratory Rate 20 Blood Pressure Pulse Oximetry 93 Oxygen Delivery Room Air Fraction of Inspired Oxygen Intake/Output Intake/Output: Intake & Output 08/15/24 08/16/24 08/17/24 08/18/24 23:59 23:59 23:59 23:59 Intake Total 1620 2390 2370 290 Output Total 931 477 9628 350 Balance 819 1940 -20 -60 Meds/Results Medications: Active Medications Generic Name Dose Route Start Last Admin Trade Name Gertrudis PRN Reason Stop Dose Admin Acetaminophen 650 mg 08/11/24 19:48 08/15/24 12:07 Acetaminophen 325 Mg Tablet PO 650 mg Q4H PRN Administration Mild Pain (1-3) or Fever Albuterol/Ipratropium 3 ml 08/12/24 08:00 08/18/24 08:43 Ipratropium 0.5 Mg/Albuterol Sulfate 2.5 Mg Ampul.Neb 3 Ml INHALATION 3 ml Q6HRT KEL Administration Benzonatate 200 mg 08/16/24 09:30 08/18/24 08:51 Benzonatate 100 Mg Capsule PO 200 mg TID KEL Administration Dextrose 12.5 gm 08/12/24 00:50 Dextrose 50% 25 Gm/50 Ml Syringe IV PUSH PRN PRN Hypoglycemia Protocol Enoxaparin Sodium 40 mg 08/12/24 09:00 08/18/24 08:52 Enoxaparin 40 Mg/0.4 Ml Syringe SUB-Q 40 mg DAILY KEL Administration Furosemide 40 mg 08/17/24 11:50 08/18/24 08:52 Furosemide Inj 40 Mg/4 Ml Vial IV PUSH 40 mg DAILY KEL Administration Glucagon 1 mg 08/12/24 00:50 Glucagon For Inj 1 Mg Vial IM PRN PRN Hypoglycemia Protocol Glucose 15 gm 08/12/24 00:50 Glucose Oral Gel 15 Gm Of Glucse In 37.5 Gm Tube PO PRN PRN Hypoglycemia Protocol Guaifenesin 1,200 mg 08/12/24 09:00 08/18/24 08:51 Guaifenesin 12 Hr 600 Mg Tabcr PO 1,200 mg Q12HR KEL Administration Guaifenesin/Dextromethorphan 10 ml 08/18/24 10:08 Guaifenesin/Dextromethorphan 10 Ml Udc PO Q4H PRN Cough Hydrochlorothiazide 25 mg 08/13/24 09:30 08/18/24 08:51 Hydrochlorothiazide 25 Mg Tablet PO 25 mg DAILY KEL Administration Dextrose 1,000 mls @ 100 mls/hr 08/12/24 00:50 Dextrose 5% 1,000 Ml IVPB PRN PRN Hypoglycemia Protocol Insulin Aspart 3 - 6 units 08/12/24 08:00 08/18/24 08:50 Insulin Aspart (*Bkc) 100 Units/Ml SUB-Q Not Given TIDWM [facility] Protocol Insulin Aspart 1 - 3 units 08/12/24 21:00 08/17/24 21:55 Insulin Aspart (*Bkc) 100 Units/Ml SUB-Q 2 units HS [facility] Administration Protocol Levothyroxine Sodium 25 mcg 08/12/24 06:30 08/18/24 05:31 Levothyroxine Sodium 25 Mcg Tablet PO 25 mcg DAILY@0630 KEL Administration Melatonin 3 mg 08/12/24 21:00 08/17/24 21:55 Melatonin 3 Mg Tablet PO 3 mg HS [facility] Administration Metoprolol Succinate 25 mg 08/12/24 09:00 08/18/24 08:51 Metoprolol Succinate Ext Rel 25 Mg Tabcr PO 25 mg DAILY KEL Administration Ondansetron HCl 4 mg 08/11/24 19:48 Ondansetron Inj 4 Mg/2 Ml Vial IV PUSH Q4H PRN Nausea Pioglitazone HCl 45 mg 08/12/24 09:00 08/18/24 08:51 Pioglitazone Hcl 45 Mg Tablet PO 45 mg DAILY KEL Administration Potassium Chloride 10 meq 08/12/24 09:00 08/18/24 08:51 Potassium Chloride 10 Meq Er Tablet PO 10 meq DAILY [facility] Administration Pravastatin Sodium 80 mg 08/12/24 21:00 08/17/24 21:54 Pravastatin Sodium 20 Mg Tablet PO 80 mg QHS [facility] Administration Vitamin D 10,000 units 08/12/24 09:00 08/18/24 08:51 Cholecalciferol 5,000 Units Tablet BY MOUTH 10,000 units DAILY KEL Administration Vitamin E 400 unit 08/12/24 09:00 08/18/24 08:51 Vitamin E 400 Unit Capsule PO 400 unit DAILY [facility] Administration Radiology Results: ITS Impressions Soft Tissue Neck CT 08/16/24 16:42 IMPRESSION: 1. Bilateral pleural effusion with adjacent atelectasis versus pneumonia. 2. Pneumonia in the right upper lobe posteriorly. 3. Lymphadenopathy in the mediastinum. 4. Severe degenerative changes of the spine. 5. Sinusitis in the left maxillary and ethmoid sinuses. 6. Atherosclerotic changes of the carotid arteries. 7. Tracheomalacia and bronchomalacia. Chest X-Ray 08/17/24 09:56 Impression: 1: Improved bilateral interstitial infiltrates, likely edema. Labs Labs: Laboratory Results - last 24 hr 08/17/24 08/17/24 08/17/24 11:53 16:59 20:53 WBC RBC Hgb Hct MCV MCH MCHC RDW Plt Count MPV Immature Gran % (Auto) Neut % (Auto) Lymph % (Auto) [place] % (Auto) Eos % (Auto) Baso % (Auto) Lymph # (Auto) [place] # (Auto) Eos # (Auto) Baso # (Auto) Abs Immat Gran (auto) Absolute Neuts (auto) Absolute Nucleated RBC Nucleated RBC % Sodium Potassium Chloride Carbon Dioxide Anion Gap BUN Creatinine Estim Creat Clear Calc Estimated GFR Glucose POC Capillary Glucose 282 H 301 H 289 H Calcium Magnesium Total Bilirubin AST ALT Alkaline Phosphatase Total Protein Albumin 08/18/24 08/18/24 05:16 07:51 WBC 12.2 H RBC 2.99 L Hgb 9.3 L Hct 28.8 L MCV 96.3 MCH 31.1 MCHC 32.3 RDW 13.7 Plt Count 292 MPV 10.2 Immature Gran % (Auto) 1.1 H Neut % (Auto) 77.2 H Lymph % (Auto) 14.8 L [place] % (Auto) 6.6 Eos % (Auto) 0.1 Baso % (Auto) 0.2 Lymph # (Auto) 1.80 [place] # (Auto) 0.8 H Eos # (Auto) 0.0 Baso # (Auto) 0.0 Abs Immat Gran (auto) 0.14 H Absolute Neuts (auto) 9.4 H Absolute Nucleated RBC 0.000 Nucleated RBC % 0.0 Sodium 134 L Potassium 3.7 Chloride 97 L Carbon Dioxide 28 Anion Gap 9 BUN 43 H D Creatinine 1.09 H Estim Creat Clear Calc 31 Estimated GFR 47 L Glucose 172 H POC Capillary Glucose 163 H Calcium 9.5 Magnesium 1.8 Total Bilirubin 0.4 AST 59 H ALT 21 Alkaline Phosphatase 61 Total Protein 6.0 L Albumin 3.1 L
--- NOTE | 2024-08-18 10:54 | P.PNIM_ITS ---
Progress Note: A&P Assessment and Plan (1) Respiratory syncytial virus (RSV): Qualifiers: RSV infection type: pneumonia Qualified Code(s): J12.1 - Respiratory syncytial virus pneumonia Code(s): B33.8 - Other specified viral diseases Status: Acute Assessment and Plan: * Continue supportive care (2) Community acquired pneumonia: Qualifiers: Laterality: unspecified laterality Qualified Code(s): J18.9 - Pneumonia, unspecified organism Code(s): J18.9 - Pneumonia, unspecified organism Status: Acute Assessment and Plan: * CT soft-tissue showing RUL PNA. * Patient completed 7 days IV Doxycycline and ceftriaxone. * Repeat CXR 08/17/24; Improved bilateral interstitial infiltrates, likely edema. * Blood culture grew Staphylococcus hominis. * Started on Vanc, Cefepime and Flagyl 08/16/24, discontinued 08/17/24 per pulm onary. * Continue duoneb q 6. * Guaifenesin 1,200 mg PO q 12. * Benzonatate Q8hrs. * Robitussin PRN for coughs. * incentive spirometer. * PT/OT * Appreciate pad cutter assistance. (3) Acute hypoxic respiratory failure: Code(s): J96.01 - Acute respiratory failure with hypoxia Status: Acute Assessment and Plan: * Likely related to above vs/+RSV Vs/+bronchomalacia +/vs tracheomalacia +/vs pulmonary edema. * Currently on RA with sats > 93%. * Supplemental O2 PRN for sats > 90 %. * Overnight oximetry study ordered per pad cutter. * Patient will need home O2 eval prior to discharge. * Appreciate Casing Worker assistance. (4) Elevated brain natriuretic peptide (BNP) level: Code(s): R79.89 - Other specified abnormal findings of blood chemistry Status: Acute Assessment and Plan: * CXR consistent with possible pulmonary edema. * Admission BNP 4250, repeat BNP 08/17>> 9870. * TT Echocardiogram showing EF 60-65%. * Continue IV lasix. * Continue daily weights with I&O's monitoring. (5) Memory loss, short term: Code(s): R41.3 - Other amnesia Status: Acute Assessment and Plan: * Possibly early dementia vs infection vs other. * Mentation appears improved a dn wnl currently. (6) Sepsis: Qualifiers: Sepsis type: sepsis due to unspecified organism Sepsis acute organ dysfunction status: with acute organ dysfunction Severe sepsis acute organ dysfunction type: acute respiratory failure Acute respiratory failure type: with hypoxia Severe sepsis shock status: without septic shock Qualified Code(s): A41.9 - Sepsis, unspecified organism; R65.20 - Severe sepsis without septic shock; J96.01 - Acute respiratory failure with hypoxia Code(s): A41.9 - Sepsis, unspecified organism Status: Acute Assessment and Plan: * 08/12/2024 resolved. (7) Diabetes: Qualifiers: Diabetes mellitus type: type 2 Diabetes mellitus emt intermediate insulin use: without mcc use Diabetes mellitus complication status: without complication Qualified Code(s): E11.9 - Type 2 diabetes mellitus without complications Code(s): E11.9 - Type 2 diabetes mellitus without complications Status: Acute Assessment and Plan: * Appears to be improving with steroids discontinuation. * Continue Actos and SSI. * Continue diabetic diet. * Adjust insulin as needed for optimal blood-glucose control. (8) Iron deficiency anemia: Code(s): D50.9 - Iron deficiency anemia, unspecified Status: Acute Assessment and Plan: * Hgb appears stable. * Continue to monitor closely. * No overt bleeding signs noted. * Seen by hematology and we appreciate assistance. Time Spent With Patient Time with patient: 15 - 25 minutes Subjective Date/time seen: 08/18/24 10:54 Patient states she's feeling better and her coughing is improving. Patient spouse bedside and reports patient's coughing is much improved. Interval history: Patient calm on bedrest with some episodes of moist coughs but looks to be in no acute distress. Currently on RA with sats > 93 %. Review of Systems Review of Systems: Review of systems was limited due to the patient's confusion. All systems reviewed & are unremarkable except as noted in HPI and below Exam Narrative: General: Fair appearing, generalized muscle weakness. HEENT: PERRL, sclerae nonicteric, pharyngeal mucosa pink and intact NECK: No JVD CHEST: Mildly tachypneic. Faint expiratory wheezes. HEART: RRR, no murmurs. ABDOMEN: BS+, soft, nontender, non-distended. EXTREMITIES: 2+ pitting edema of chas. feet. NEUROLOGIC: Well oriented. CN II-XII grossly intact. PSYCH: Alert. Oriented to person, place, time and situation. Objective Data Vital Signs Vital Signs: Vital Signs - 24 hr 08/17/24 13:31 08/17/24 13:49 08/17/24 14:00 Temperature 97.6 F Pulse Rate 88 81 107 H Respiratory Rate 20 20 18 Blood Pressure 116/61 Pulse Oximetry 94 Oxygen Delivery Fraction of Inspired Oxygen 08/17/24 20:00 08/17/24 20:49 08/17/24 21:02 Temperature 98.4 F Pulse Rate 116 H 88 Respiratory Rate 20 20 Blood Pressure 119/69 Pulse Oximetry 94 Oxygen Delivery Room Air Fraction of Inspired Oxygen 08/17/24 21:13 08/18/24 02:50 08/18/24 02:58 Temperature Pulse Rate 88 88 80 Respiratory Rate 20 20 20 Blood Pressure Pulse Oximetry Oxygen Delivery Fraction of Inspired Oxygen 08/18/24 05:01 08/18/24 08:43 08/18/24 08:43 Temperature 98.1 F Pulse Rate 104 H 112 H Respiratory Rate 20 20 Blood Pressure 111/61 Pulse Oximetry 92 90 Oxygen Delivery Room Air Fraction of Inspired Oxygen 21 08/18/24 08:50 08/18/24 08:51 08/18/24 08:54 Temperature Pulse Rate 98 110 H Respiratory Rate 20 Blood Pressure Pulse Oximetry 93 Oxygen Delivery Room Air Fraction of Inspired Oxygen Intake/Output Intake/Output: Intake & Output 08/15/24 08/16/24 08/17/24 08/18/24 23:59 23:59 23:59 23:59 Intake Total 1620 2390 2370 390 Output Total 306 162 7756 350 Balance 819 1940 -20 40 Meds/Results Medications: Active Medications Generic Name Dose Route Start Last Admin Trade Name Freq PRN Reason Stop Dose Admin Acetaminophen 650 mg 08/11/24 19:48 08/15/24 12:07 Acetaminophen 325 Mg Tablet PO 650 mg Q4H PRN Administration Mild Pain (1-3) or Fever Albuterol/Ipratropium 3 ml 08/12/24 08:00 08/18/24 08:43 Ipratropium 0.5 Mg/Albuterol Sulfate 2.5 Mg Ampul.Neb 3 Ml INHALATION 3 ml Q6HRT KEL Administration Benzonatate 200 mg 08/16/24 09:30 08/18/24 08:51 Benzonatate 100 Mg Capsule PO 200 mg TID KEL Administration Dextrose 12.5 gm 08/12/24 00:50 Dextrose 50% 25 Gm/50 Ml Syringe IV PUSH PRN PRN Hypoglycemia Protocol Enoxaparin Sodium 40 mg 08/12/24 09:00 08/18/24 08:52 Enoxaparin 40 Mg/0.4 Ml Syringe SUB-Q 40 mg DAILY KEL Administration Furosemide 40 mg 08/17/24 11:50 08/18/24 08:52 Furosemide Inj 40 Mg/4 Ml Vial IV PUSH 40 mg DAILY KEL Administration Glucagon 1 mg 08/12/24 00:50 Glucagon For Inj 1 Mg Vial IM PRN PRN Hypoglycemia Protocol Glucose 15 gm 08/12/24 00:50 Glucose Oral Gel 15 Gm Of Glucse In 37.5 Gm Tube PO PRN PRN Hypoglycemia Protocol Guaifenesin 1,200 mg 08/12/24 09:00 08/18/24 08:51 Guaifenesin 12 Hr 600 Mg Tabcr PO 1,200 mg Q12HR KEL Administration Guaifenesin/Dextromethorphan 10 ml 08/18/24 10:08 Guaifenesin/Dextromethorphan 10 Ml Udc PO Q4H PRN Cough Hydrochlorothiazide 25 mg 08/13/24 09:30 08/18/24 08:51 Hydrochlorothiazide 25 Mg Tablet PO 25 mg DAILY KEL Administration Dextrose 1,000 mls @ 100 mls/hr 08/12/24 00:50 Dextrose 5% 1,000 Ml IVPB PRN PRN Hypoglycemia Protocol Insulin Aspart 3 - 6 units 08/12/24 08:00 08/18/24 08:50 Insulin Aspart (*Bkc) 100 Units/Ml SUB-Q Not Given TIDWM KEL Protocol Insulin Aspart 1 - 3 units 08/12/24 21:00 08/17/24 21:55 Insulin Aspart (*Bkc) 100 Units/Ml SUB-Q 2 units HS KEL Administration Protocol Levothyroxine Sodium 25 mcg 08/12/24 06:30 08/18/24 05:31 Levothyroxine Sodium 25 Mcg Tablet PO 25 mcg DAILY@0630 KEL Administration Melatonin 3 mg 08/12/24 21:00 08/17/24 21:55 Melatonin 3 Mg Tablet PO 3 mg HS KEL Administration Metoprolol Succinate 25 mg 08/12/24 09:00 08/18/24 08:51 Metoprolol Succinate Ext Rel 25 Mg Tabcr PO 25 mg DAILY KEL Administration Ondansetron HCl 4 mg 08/11/24 19:48 Ondansetron Inj 4 Mg/2 Ml Vial IV PUSH Q4H PRN Nausea Pioglitazone HCl 45 mg 08/12/24 09:00 08/18/24 08:51 Pioglitazone Hcl 45 Mg Tablet PO 45 mg DAILY KEL Administration Potassium Chloride 10 meq 08/12/24 09:00 08/18/24 08:51 Potassium Chloride 10 Meq Er Tablet PO 10 meq DAILY KEL Administration Pravastatin Sodium 80 mg 08/12/24 21:00 08/17/24 21:54 Pravastatin Sodium 20 Mg Tablet PO 80 mg QHS KEL Administration Vitamin D 10,000 units 08/12/24 09:00 08/18/24 08:51 Cholecalciferol 5,000 Units Tablet BY MOUTH 10,000 units DAILY KEL Administration Vitamin E 400 unit 08/12/24 09:00 08/18/24 08:51 Vitamin E 400 Unit Capsule PO 400 unit DAILY KEL Administration Radiology Results: ITS Impressions Soft Tissue Neck CT 08/16/24 16:42 IMPRESSION: 1. Bilateral pleural effusion with adjacent atelectasis versus pneumonia. 2. Pneumonia in the right upper lobe posteriorly. 3. Lymphadenopathy in the mediastinum. 4. Severe degenerative changes of the spine. 5. Sinusitis in the left maxillary and ethmoid sinuses. 6. Atherosclerotic changes of the carotid arteries. 7. Tracheomalacia and bronchomalacia. Chest X-Ray 08/17/24 09:56 Impression: 1: Improved bilateral interstitial infiltrates, likely edema. Labs Labs: Laboratory Results - last 24 hr 08/17/24 08/17/24 08/17/24 11:53 16:59 20:53 WBC RBC Hgb Hct MCV MCH MCHC RDW Plt Count MPV Immature Gran % (Auto) Neut % (Auto) Lymph % (Auto) [place] % (Auto) Eos % (Auto) Baso % (Auto) Lymph # (Auto) [place] # (Auto) Eos # (Auto) Baso # (Auto) Abs Immat Gran (auto) Absolute Neuts (auto) Absolute Nucleated RBC Nucleated RBC % Sodium Potassium Chloride Carbon Dioxide Anion Gap BUN Creatinine Estim Creat Clear Calc Estimated GFR Glucose POC Capillary Glucose 282 H 301 H 289 H Calcium Magnesium Total Bilirubin AST ALT Alkaline Phosphatase Total Protein Albumin 08/18/24 08/18/24 05:16 07:51 WBC 12.2 H RBC 2.99 L Hgb 9.3 L Hct 28.8 L MCV 96.3 MCH 31.1 MCHC 32.3 RDW 13.7 Plt Count 292 MPV 10.2 Immature Gran % (Auto) 1.1 H Neut % (Auto) 77.2 H Lymph % (Auto) 14.8 L [place] % (Auto) 6.6 Eos % (Auto) 0.1 Baso % (Auto) 0.2 Lymph # (Auto) 1.80 [place] # (Auto) 0.8 H Eos # (Auto) 0.0 Baso # (Auto) 0.0 Abs Immat Gran (auto) 0.14 H Absolute Neuts (auto) 9.4 H Absolute Nucleated RBC 0.000 Nucleated RBC % 0.0 Sodium 134 L Potassium 3.7 Chloride 97 L Carbon Dioxide 28 Anion Gap 9 BUN 43 H D Creatinine 1.09 H Estim Creat Clear Calc 31 Estimated GFR 47 L Glucose 172 H POC Capillary Glucose 163 H Calcium 9.5 Magnesium 1.8 Total Bilirubin 0.4 AST 59 H ALT 21 Alkaline Phosphatase 61 Total Protein 6.0 L Albumin 3.1 L Quality VTE Prophylaxis VTE prophylaxis: pharmacologic ordered (Lovenox 40 mg subq day.) Hospitalist MIPS Advance Care Plan I have confirmed that the patient's Advanced Care Plan is present, code status is documented, or surrogate decision maker is listed in patient medical record.: Yes Medication Reconciliation I have utilized all available resources to obtain, update and review the patients current medications (includes all prescriptions, OTC, herbals, cannabis, and nutritional supplements).: Yes
[2024-08-18 11:53] LABS: Glucose Point of Care 202 mg/dl (65-105)
[2024-08-18] MEDS: INSULIN ASPART (*BKC) 100 UNITS/ML SUB-Q ×2 (12:36→21:18)
[2024-08-18 17:08] LABS: Glucose Point of Care 164 mg/dl (65-105)
[2024-08-18] MEDS: ACETAMINOPHEN 325 MG TABLET 650 MG PO (21:17)
[2024-08-18] MEDS: PRAVASTATIN SODIUM 20 MG TABLET 80 MG PO (21:18)
[2024-08-18] MEDS: MELATONIN 3 MG TABLET PO (21:18)
[2024-08-18 21:56] LABS: Glucose Point of Care 223 mg/dl (65-105)
[2024-08-19] VITALS (11 sets, daily range): BP systolic 105–132; BP diastolic 50–90; PULSE 52–104; RESP 17–20; TEMP 36.8–37.1; O2SAT 90–95
[2024-08-19] MEDS: LEVOTHYROXINE SODIUM 25 MCG TABLET PO (05:31)
--- NOTE | 2024-08-19 06:22 | PCRCNOTE ---
Pt did not receive 0200 updraft treatment due to being on overnight oximetry study
[2024-08-19] MEDS: IPRATROPIUM 0.5 MG/ALBUTEROL SULFATE 2.5 MG AMPUL.NEB 3 ML INHALATION ×3 (07:08→21:23)
[2024-08-19 07:47] LABS: Basophils Percent Auto 0.2 % (0.2-1.2); Eosinophils Absolute Auto 0.1 K/mm3 (0-0.3); Eosinophils Percent Auto 1.2 % (0-4.4); Hematocrit 32.4 % (37.0-47.0); Hemoglobin 10.6 g/dL (12.0-15.0); Immature Granulocyte Absolute 0.11 K/mm3 (0.00-0.031); Immature Granulocyte Percent A 0.9 % (0-0.5); Lymphocytes Absolute Auto 2.24 K/mm3 (0.9-3.2); Lymphocytes Percent Auto 18.5 % (18.3-44.2); Mean Corpuscular HGB Conc 32.7 g/dl (32-36); Mean Corpuscular Hemoglobin 31.4 pg (26-34); Mean Corpuscular Volume 95.9 fl (80-100); Monocytes Absolute Auto 0.9 K/mm3 (0.1-0.6); Neutrophils Absolute Auto 8.7 K/mm3 (1.3-6.7); Neutrophils Percent Auto 72.2 % (45.5-73.1); Platelet Count Result 311 k/mm3 (150-375); Red Blood Count 3.38 M/mm3 (4.2-5.4); Red Cell Distribution Width 13.8 % (11.5-14.5); White Blood Count 12.1 K/mm3 (4.5-10.0)
[2024-08-19 08:02] LABS: Alanine Aminotransferase 23 U/L (6-35); Albumin Level 3.5 g/dL (3.5-5.1); Alkaline Phosphatase 70 U/L (38-126); Anion Gap 7 mmol/L (4-12); Aspartate Amino Transferase 46 U/L (14-36); Bilirubin,Total 0.6 mg/dL (0.2-1.3); Blood Urea Nitrogen 36 mg/dL (7-17); Calcium 9.9 mg/dL (8.4-10.2); Carbon Dioxide 29 mmol/L (22-30); Chloride 96 mmol/L (98-107); Estimated CRCL calculation 37 ml/min; Estimated Glomerular Filt Rate 58; Glucose 176 mg/dL (65-110); Magnesium 1.8 mg/dL (1.6-2.3); Potassium 3.7 mmol/L (3.4-5.0); Sodium 132 mmol/L (137-145)
[2024-08-19 08:16] LABS: Glucose Point of Care 200 mg/dl (65-105)
[2024-08-19] MEDS: VITAMIN E 400 UNIT CAPSULE PO (08:50)
[2024-08-19] MEDS: PIOGLITAZONE HCL 45 MG TABLET PO (08:50)
[2024-08-19] MEDS: BENZONATATE 100 MG CAPSULE 200 MG PO ×3 (08:50→17:29)
[2024-08-19] MEDS: METOPROLOL SUCCINATE EXT REL 25 MG TABCR PO (08:50)
[2024-08-19] MEDS: CHOLECALCIFEROL 5,000 UNITS TABLET 10000 UNITS BY MOUTH (08:50)
[2024-08-19] MEDS: hydroCHLOROthiazide 25 MG TABLET PO (08:50)
[2024-08-19] MEDS: FUROSEMIDE INJ 40 MG/4 ML VIAL IV PUSH (08:50)
[2024-08-19] MEDS: guaiFENesin 12 HR 600 MG TABCR 1200 MG PO ×2 (08:50→21:35)
[2024-08-19] MEDS: POTASSIUM CHLORIDE 10 MEQ ER TABLET PO (08:50)
[2024-08-19] MEDS: ENOXAPARIN 40 MG/0.4 ML SYRINGE SUB-Q (08:50)
--- NOTE | 2024-08-19 11:10 | P.PNIM_ITS ---
Progress Note: A&P Assessment and Plan (1) Respiratory syncytial virus (RSV): Qualifiers: RSV infection type: pneumonia Qualified Code(s): J12.1 - Respiratory syncytial virus pneumonia Code(s): B33.8 - Other specified viral diseases Status: Acute Assessment and Plan: * Continue supportive care (2) Community acquired pneumonia: Qualifiers: Laterality: unspecified laterality Qualified Code(s): J18.9 - Pneumonia, unspecified organism Code(s): J18.9 - Pneumonia, unspecified organism Status: Acute Assessment and Plan: * CT soft-tissue showing RUL PNA. * Patient completed 7 days IV Doxycycline and ceftriaxone. * Repeat CXR 08/17/24; Improved bilateral interstitial infiltrates, likely edema. * Blood culture grew Staphylococcus hominis. * Started on Vanc, Cefepime and Flagyl 08/16/24, discontinued 08/17/24 per pulm onary. * Procalcitonin 0.1 and abx discontinued. * Continue duoneb q 6. * Guaifenesin 1,200 mg PO q 12. * Benzonatate Q8hrs. * Robitussin PRN for coughs. * PT/OT * Appreciate drafter castings assistance. (3) Acute hypoxic respiratory failure: Code(s): J96.01 - Acute respiratory failure with hypoxia Status: Acute Assessment and Plan: * Likely related to above vs/+RSV Vs/+bronchomalacia +/vs tracheomalacia +/vs pulmonary edema. * Currently on RA with sats > 93%. * Supplemental O2 PRN for sats > 90 %. * incentive spirometer. * Overnight oximetry showing PO2 in the mid to high 80's per drafter castings. * Will repeat overnight oximetry studies with 3L/NC per drafter castings recommendations. * Patient will need home O2 eval prior to discharge. * Appreciate Lamp Wirer assistance. * Continue Lasix IV with CXR showing likely pulmonary edema. (4) Elevated brain natriuretic peptide (BNP) level: Code(s): R79.89 - Other specified abnormal findings of blood chemistry Status: Acute Assessment and Plan: * CXR consistent with possible pulmonary edema. * Admission BNP 4250, repeat BNP 08/17>> 9870. * TT Echocardiogram showing EF 60-65%. * Continue IV lasix. * Continue daily weights with I&O's monitoring. (5) Memory loss, short term: Code(s): R41.3 - Other amnesia Status: Acute Assessment and Plan: * Possibly early dementia vs infection vs other. * Mentation appears improved and wnl currently. (6) Sepsis: Qualifiers: Sepsis type: sepsis due to unspecified organism Sepsis acute organ dysfunction status: with acute organ dysfunction Severe sepsis acute organ dysfunction type: acute respiratory failure Acute respiratory failure type: with hypoxia Severe sepsis shock status: without septic shock Qualified Code(s): A41.9 - Sepsis, unspecified organism; R65.20 - Severe sepsis without septic shock; J96.01 - Acute respiratory failure with hypoxia Code(s): A41.9 - Sepsis, unspecified organism Status: Acute Assessment and Plan: * 08/12/2024 resolved. (7) Diabetes: Qualifiers: Diabetes mellitus type: type 2 Diabetes mellitus snf insulin use: without snf use Diabetes mellitus complication status: without complication Qualified Code(s): E11.9 - Type 2 diabetes mellitus without complications Code(s): E11.9 - Type 2 diabetes mellitus without complications Status: Acute Assessment and Plan: * Appears to be improving with steroids discontinuation. * Continue Actos and SSI. * Continue diabetic diet. * Adjust insulin as needed for optimal blood-glucose control. (8) Iron deficiency anemia: Code(s): D50.9 - Iron deficiency anemia, unspecified Status: Acute Assessment and Plan: * Hgb appears stable. * Continue to monitor closely. * No overt bleeding signs noted. * Seen by hematology and we appreciate assistance. Time Spent With Patient Time with patient: 15 - 25 minutes Subjective Date/time seen: 08/19/24 09:10 Patient states she's feeling much better. bedside and states pt's coughing much improved. Pt's hesitant about overnight oximetry with supplemental O2, stating pt has lived without supplemental O2 overnight for almost 90 years now and pt has been doing fine. states pt has a cheese packer who has stated pt's heart is fine and has never suggested home O2 bedtime. hesitantly agrees to overnight oximetry with supplemental O2 but will decide on going home with O2. Interval history: Patient calm on bedrest with rare episodes of moist coughs but looks to be in no acute distress. Remains on RA with sats > 93 %. Review of Systems Review of Systems: All systems reviewed & are unremarkable except as noted in HPI and below Exam Narrative: General: Fair appearing, generalized muscle weakness. HEENT: PERRL, sclerae nonicteric, pharyngeal mucosa pink and intact NECK: No JVD Lungs: Mildly tachypneic. Diminished wit faint expiratory wheezes. HEART: RRR, no murmurs. ABDOMEN: BS+, soft, nontender, non-distended. EXTREMITIES: 1+ pitting edema of chas. feet. NEUROLOGIC: Fairly well oriented. CN II-XII grossly intact. PSYCH: Alert. Pleasant and co-operative. Objective Data Vital Signs Vital Signs: Vital Signs - 24 hr 08/18/24 14:00 08/18/24 15:30 08/18/24 15:30 Temperature 97.4 F L Pulse Rate 106 H 106 H Respiratory Rate 20 20 Blood Pressure 114/61 Pulse Oximetry 94 92 Oxygen Delivery Room Air Fraction of Inspired Oxygen 08/18/24 15:38 08/18/24 20:00 08/18/24 20:00 Temperature Pulse Rate 102 H 117 H 109 H Respiratory Rate 20 20 20 Blood Pressure Pulse Oximetry 92 Oxygen Delivery Room Air Fraction of Inspired Oxygen 21 08/18/24 20:08 08/18/24 20:11 08/18/24 20:15 Temperature 99.0 F Pulse Rate 117 H 109 H Respiratory Rate 20 20 Blood Pressure 124/61 Pulse Oximetry 93 93 Oxygen Delivery Room Air Fraction of Inspired Oxygen 08/18/24 22:45 08/19/24 05:23 08/19/24 07:08 Temperature 98.7 F Pulse Rate 52 L 104 H Respiratory Rate 20 20 Blood Pressure 105/50 L Pulse Oximetry 92 90 Oxygen Delivery Room Air Fraction of Inspired Oxygen 08/19/24 08:30 08/19/24 08:48 08/19/24 08:50 Temperature Pulse Rate 74 74 Respiratory Rate 17 Blood Pressure 132/90 Pulse Oximetry 95 95 Oxygen Delivery Room Air Fraction of Inspired Oxygen Intake/Output Intake/Output: Intake & Output 08/16/24 08/17/24 08/18/24 08/19/24 23:59 23:59 23:59 23:59 Intake Total 2390 2370 2070 730 Output Total 450 2390 1850 1300 Balance 1940 -20 220 -570 Meds/Results Medications: Active Medications Generic Name Dose Route Start Last Admin Trade Name Freq PRN Reason Stop Dose Admin Acetaminophen 650 mg 08/11/24 19:48 08/18/24 21:17 Acetaminophen 325 Mg Tablet PO 650 mg Q4H PRN Administration Mild Pain (1-3) or Fever Albuterol/Ipratropium 3 ml 08/12/24 08:00 08/19/24 07:08 Ipratropium 0.5 Mg/Albuterol Sulfate 2.5 Mg Ampul.Neb 3 Ml INHALATION 3 ml Q6HRT KEL Administration Benzonatate 200 mg 08/16/24 09:30 08/19/24 08:50 Benzonatate 100 Mg Capsule PO 200 mg TID KEL Administration Dextrose 12.5 gm 08/12/24 00:50 Dextrose 50% 25 Gm/50 Ml Syringe IV PUSH PRN PRN Hypoglycemia Protocol Enoxaparin Sodium 40 mg 08/12/24 09:00 08/19/24 08:50 Enoxaparin 40 Mg/0.4 Ml Syringe SUB-Q 40 mg DAILY KEL Administration Furosemide 40 mg 08/17/24 11:50 08/19/24 08:50 Furosemide Inj 40 Mg/4 Ml Vial IV PUSH 40 mg DAILY KEL Administration Glucagon 1 mg 08/12/24 00:50 Glucagon For Inj 1 Mg Vial IM PRN PRN Hypoglycemia Protocol Glucose 15 gm 08/12/24 00:50 Glucose Oral Gel 15 Gm Of Glucse In 37.5 Gm Tube PO PRN PRN Hypoglycemia Protocol Guaifenesin 1,200 mg 08/12/24 09:00 08/19/24 08:50 Guaifenesin 12 Hr 600 Mg Tabcr PO 1,200 mg Q12HR KEL Administration Guaifenesin/Dextromethorphan 10 ml 08/18/24 10:08 Guaifenesin/Dextromethorphan 10 Ml Udc PO Q4H PRN Cough Hydrochlorothiazide 25 mg 08/13/24 09:30 08/19/24 08:50 Hydrochlorothiazide 25 Mg Tablet PO 25 mg DAILY KEL Administration Dextrose 1,000 mls @ 100 mls/hr 08/12/24 00:50 Dextrose 5% 1,000 Ml IVPB PRN PRN Hypoglycemia Protocol Insulin Aspart 3 - 6 units 08/12/24 08:00 08/19/24 08:51 Insulin Aspart (*Bkc) 100 Units/Ml SUB-Q Not Given TIDWM KEL Protocol Insulin Aspart 1 - 3 units 08/12/24 21:00 08/18/24 21:18 Insulin Aspart (*Bkc) 100 Units/Ml SUB-Q 1 units HS KEL Administration Protocol Levothyroxine Sodium 25 mcg 08/12/24 06:30 08/19/24 05:31 Levothyroxine Sodium 25 Mcg Tablet PO 25 mcg DAILY@0630 KEL Administration Melatonin 3 mg 08/12/24 21:00 08/18/24 21:18 Melatonin 3 Mg Tablet PO 3 mg HS KEL Administration Metoprolol Succinate 25 mg 08/12/24 09:00 08/19/24 08:50 Metoprolol Succinate Ext Rel 25 Mg Tabcr PO 25 mg DAILY KEL Administration Ondansetron HCl 4 mg 08/11/24 19:48 Ondansetron Inj 4 Mg/2 Ml Vial IV PUSH Q4H PRN Nausea Pioglitazone HCl 45 mg 08/12/24 09:00 08/19/24 08:50 Pioglitazone Hcl 45 Mg Tablet PO 45 mg DAILY KEL Administration Potassium Chloride 10 meq 08/12/24 09:00 08/19/24 08:50 Potassium Chloride 10 Meq Er Tablet PO 10 meq DAILY KEL Administration Pravastatin Sodium 80 mg 08/12/24 21:00 08/18/24 21:18 Pravastatin Sodium 20 Mg Tablet PO 80 mg QHS KEL Administration Vitamin D 10,000 units 08/12/24 09:00 08/19/24 08:50 Cholecalciferol 5,000 Units Tablet BY MOUTH 10,000 units DAILY KEL Administration Vitamin E 400 unit 08/12/24 09:00 08/19/24 08:50 Vitamin E 400 Unit Capsule PO 400 unit DAILY KEL Administration Radiology Results: ITS Impressions Soft Tissue Neck CT 08/16/24 16:42 IMPRESSION: 1. Bilateral pleural effusion with adjacent atelectasis versus pneumonia. 2. Pneumonia in the right upper lobe posteriorly. 3. Lymphadenopathy in the mediastinum. 4. Severe degenerative changes of the spine. 5. Sinusitis in the left maxillary and ethmoid sinuses. 6. Atherosclerotic changes of the carotid arteries. 7. Tracheomalacia and bronchomalacia. Chest X-Ray 08/17/24 09:56 Impression: 1: Improved bilateral interstitial infiltrates, likely edema. Labs Labs: Laboratory Results - last 24 hr 08/18/24 08/18/24 08/18/24 11:45 16:56 20:15 WBC RBC Hgb Hct MCV MCH MCHC RDW Plt Count MPV Immature Gran % (Auto) Neut % (Auto) Lymph % (Auto) [place] % (Auto) Eos % (Auto) Baso % (Auto) Lymph # (Auto) [place] # (Auto) Eos # (Auto) Baso # (Auto) Abs Immat Gran (auto) Absolute Neuts (auto) Absolute Nucleated RBC Nucleated RBC % Sodium Potassium Chloride Carbon Dioxide Anion Gap BUN Creatinine Estim Creat Clear Calc Estimated GFR Glucose POC Capillary Glucose 202 H 164 H 223 H Calcium Magnesium Total Bilirubin AST ALT Alkaline Phosphatase Total Protein Albumin 08/19/24 08/19/24 07:41 08:10 WBC 12.1 H RBC 3.38 L Hgb 10.6 L Hct 32.4 L MCV 95.9 MCH 31.4 MCHC 32.7 RDW 13.8 Plt Count 311 MPV 10.0 Immature Gran % (Auto) 0.9 H Neut % (Auto) 72.2 Lymph % (Auto) 18.5 [place] % (Auto) 7.0 Eos % (Auto) 1.2 Baso % (Auto) 0.2 Lymph # (Auto) 2.24 [place] # (Auto) 0.9 H Eos # (Auto) 0.1 Baso # (Auto) 0.0 Abs Immat Gran (auto) 0.11 H Absolute Neuts (auto) 8.7 H Absolute Nucleated RBC 0.000 Nucleated RBC % 0.0 Sodium 132 L Potassium 3.7 Chloride 96 L Carbon Dioxide 29 Anion Gap 7 BUN 36 H Creatinine 0.91 Estim Creat Clear Calc 37 Estimated GFR 58 L Glucose 176 H POC Capillary Glucose 200 H Calcium 9.9 Magnesium 1.8 Total Bilirubin 0.6 AST 46 H ALT 23 Alkaline Phosphatase 70 Total Protein 7.0 Albumin 3.5 Quality VTE Prophylaxis VTE prophylaxis: pharmacologic ordered (Lovenox 40 mg subq day.) Hospitalist MIPS Advance Care Plan I have confirmed that the patient's Advanced Care Plan is present, code status is documented, or surrogate decision maker is listed in patient medical record.: Yes Medication Reconciliation I have utilized all available resources to obtain, update and review the patients current medications (includes all prescriptions, OTC, herbals, cannabis, and nutritional supplements).: Yes
[2024-08-19 12:15] LABS: Glucose Point of Care 233 mg/dl (65-105)
[2024-08-19] MEDS: INSULIN ASPART (*BKC) 100 UNITS/ML SUB-Q ×2 (12:40→17:29)
[2024-08-19 16:56] LABS: Glucose Point of Care 223 mg/dl (65-105)
[2024-08-19] MEDS: PRAVASTATIN SODIUM 20 MG TABLET 80 MG PO (21:35)
[2024-08-19] MEDS: MELATONIN 3 MG TABLET PO (21:35)
[2024-08-19 22:28] LABS: Glucose Point of Care 182 mg/dl (65-105)
[2024-08-20] VITALS (7 sets, daily range): BP systolic 105; BP diastolic 62; PULSE 94–103; RESP 15–18; TEMP 36.9; O2SAT 93–94
[2024-08-20] MEDS: LEVOTHYROXINE SODIUM 25 MCG TABLET PO (06:31)
[2024-08-20 06:40] LABS: Basophils Percent Auto 0.2 % (0.2-1.2); Eosinophils Absolute Auto 0.3 K/mm3 (0-0.3); Eosinophils Percent Auto 2.5 % (0-4.4); Hematocrit 31.6 % (37.0-47.0); Hemoglobin 10.4 g/dL (12.0-15.0); Immature Granulocyte Absolute 0.09 K/mm3 (0.00-0.031); Immature Granulocyte Percent A 0.9 % (0-0.5); Lymphocytes Absolute Auto 2.26 K/mm3 (0.9-3.2); Lymphocytes Percent Auto 22.6 % (18.3-44.2); Mean Corpuscular HGB Conc 32.9 g/dl (32-36); Mean Corpuscular Hemoglobin 31.8 pg (26-34); Mean Corpuscular Volume 96.6 fl (80-100); Mean Platelet Volume 10.6 fl (7.4-10.4); Monocytes Absolute Auto 0.7 K/mm3 (0.1-0.6); Monocytes Percent Auto 6.9 % (2.6-8.5); Neutrophils Absolute Auto 6.7 K/mm3 (1.3-6.7); Neutrophils Percent Auto 66.9 % (45.5-73.1); Platelet Count Result 278 k/mm3 (150-375); Red Blood Count 3.27 M/mm3 (4.2-5.4); Red Cell Distribution Width 13.8 % (11.5-14.5)
[2024-08-20 06:45] LABS: Alanine Aminotransferase 18 U/L (6-35); Albumin Level 3.1 g/dL (3.5-5.1); Alkaline Phosphatase 62 U/L (38-126); Anion Gap 4 mmol/L (4-12); Aspartate Amino Transferase 31 U/L (14-36); Bilirubin,Total 0.5 mg/dL (0.2-1.3); Blood Urea Nitrogen 34 mg/dL (7-17); Calcium 9.5 mg/dL (8.4-10.2); Carbon Dioxide 33 mmol/L (22-30); Chloride 96 mmol/L (98-107); Estimated CRCL calculation 34 ml/min; Estimated Glomerular Filt Rate 54; Glucose 156 mg/dL (65-110); Potassium 3.7 mmol/L (3.4-5.0); Sodium 133 mmol/L (137-145)
[2024-08-20 08:03] LABS: Glucose Point of Care 172 mg/dl (65-105)
[2024-08-20] MEDS: VITAMIN E 400 UNIT CAPSULE PO (09:45)
[2024-08-20] MEDS: CHOLECALCIFEROL 5,000 UNITS TABLET 10000 UNITS BY MOUTH (09:45)
[2024-08-20] MEDS: BENZONATATE 100 MG CAPSULE 200 MG PO ×2 (09:45→12:18)
[2024-08-20] MEDS: METOPROLOL SUCCINATE EXT REL 25 MG TABCR PO (09:46)
[2024-08-20] MEDS: PIOGLITAZONE HCL 45 MG TABLET PO (09:46)
[2024-08-20] MEDS: hydroCHLOROthiazide 25 MG TABLET PO (09:46)
[2024-08-20] MEDS: guaiFENesin 12 HR 600 MG TABCR 1200 MG PO (09:46)
[2024-08-20] MEDS: POTASSIUM CHLORIDE 10 MEQ ER TABLET PO (09:47)
[2024-08-20] MEDS: ENOXAPARIN 40 MG/0.4 ML SYRINGE SUB-Q (09:47)
[2024-08-20] MEDS: FUROSEMIDE INJ 40 MG/4 ML VIAL IV PUSH (09:47)
[2024-08-20 11:12] LABS: Glucose Point of Care 194 mg/dl (65-105)
[2024-08-20] MEDS: IPRATROPIUM 0.5 MG/ALBUTEROL SULFATE 2.5 MG AMPUL.NEB 3 ML INHALATION (13:52)
--- NOTE | 2024-08-20 15:09 | P.DS_ITS ---
DS: Admitting Diagnosis Discharge Date 08/20/24 Admitting Diagnosis Acute Hypoxic Respiratory Failure DS: Discharge Diagnosis Discharge Diagnosis (1) Respiratory syncytial virus (RSV): Qualifiers: RSV infection type: pneumonia Qualified Code(s): J12.1 - Respiratory syncytial virus pneumonia Code(s): B33.8 - Other specified viral diseases Status: Acute Assessment and Plan: * Acute. (2) Community acquired pneumonia: Qualifiers: Laterality: unspecified laterality Qualified Code(s): J18.9 - Pneumonia, unspecified organism Code(s): J18.9 - Pneumonia, unspecified organism Status: Acute Assessment and Plan: * Acute. (3) Acute hypoxic respiratory failure: Code(s): J96.01 - Acute respiratory failure with hypoxia Status: Acute Assessment and Plan: * Acute. (4) Elevated brain natriuretic peptide (BNP) level: Code(s): R79.89 - Other specified abnormal findings of blood chemistry Status: Acute Assessment and Plan: * Acute. (5) Memory loss, short term: Code(s): R41.3 - Other amnesia Status: Acute Assessment and Plan: * Acute on chronic. (6) Sepsis: Qualifiers: Sepsis type: sepsis due to unspecified organism Sepsis acute organ dysfunction status: with acute organ dysfunction Severe sepsis acute organ dysfunction type: acute respiratory failure Acute respiratory failure type: with hypoxia Severe sepsis shock status: without septic shock Qualified Code(s): A41.9 - Sepsis, unspecified organism; R65.20 - Severe sepsis without septic shock; J96.01 - Acute respiratory failure with hypoxia Code(s): A41.9 - Sepsis, unspecified organism Status: Acute Assessment and Plan: * Acute. (7) Diabetes: Qualifiers: Diabetes mellitus type: type 2 Diabetes mellitus retirement insulin use: without intermediate school teacher use Diabetes mellitus complication status: without complication Qualified Code(s): E11.9 - Type 2 diabetes mellitus without complications Code(s): E11.9 - Type 2 diabetes mellitus without complications Status: Acute Assessment and Plan: * Chronic. (8) Iron deficiency anemia: Code(s): D50.9 - Iron deficiency anemia, unspecified Status: Acute Assessment and Plan: * Chronic. Plan Discharge Home. DS: Summary Hospital Course Reason for hospitalization: Acute Hypoxic Respiratory Failure. Hospital Course: Patient was brought in to the ER with reports of fevers at home, SOB, poor appetite and increased generalized muscle weakness. Patient's initial work-up labs included acute respiratory virus panel that came back positive for RSV PCR. Her CXR also showed Airspace opacities in the mid and lower lung zones, consistent with atelectasis versus pneumonia versus chronic lung disease. Blood cultures were collected and pt admitted for IV abx Pneumonia treatment. Patient completed 8 days of IV abx and was seen by the long term care social worker as well, who helped stabilize patient's conditions. She was on 3-4L of supplemental O2 which has been able to be weaned off prior to discharge. Patient had overnight oximetry done as well that showed hypoxia with O2 sats in the mid 80's. She had a repeat study done with 3L/NC supplemental O2 per long term care social worker recommendations, and her PO2 remained > 93 % with the 3L/NC. Patient will be discharged on supplemental O2 for use bedtime and with naps. Patient's repeat CXR was consistent with pulmonary edema, with her BNP noted to have increased since admission; [id number]. She has been diuresed with IV lasix and pt has lost 6lbs during the last 3 days. Her TT Echocardiogram showed EF 60-65%. She will be discharged on Lasix and we'll hold her HCTZ. Patient has been able to ambulate with PT/OT and home discharge has been recommended, with pt having a good family support system. She was offered supportive care for her RSV and her cardiopulmonary status appears to be stabilizing currently. Patient is medically stable for discharge with no acute distress noted or reported prior to discharge. Case mgt assisting with Home O2 set-up. Status at Discharge Functional status at discharge: uses cane/walker Overall status at discharge: patient is progressing back to baseline Time Spent with Patient Time attestation: Total time spent providing and/or coordinating discharge services: Time spent: Greater than 30 minutes Exam Narrative: General: Fair appearing, generalized muscle weakness. HEENT: PERRL, sclerae nonicteric, pharyngeal mucosa pink and intact NECK: No JVD Lungs: Diminished wit faint expiratory wheezes. HEART: RRR, no murmurs. ABDOMEN: BS+, soft, nontender, non-distended. EXTREMITIES: 1+ pitting edema of chas. feet. NEUROLOGIC: Fairly well oriented. CN II-XII grossly intact. PSYCH: Alert. Pleasant and co-operative. DS: Data Data Completed and Pending Labs on day of discharge: Labs from last 24 hours 08/20/24 08/20/24 08/20/24 10:56 07:58 06:12 WBC 10.0 RBC 3.27 L Hgb 10.4 L Hct 31.6 L MCV 96.6 MCH 31.8 MCHC 32.9 RDW 13.8 Plt Count 278 MPV 10.6 H Immature Gran % (Auto) 0.9 H Neut % (Auto) 66.9 Lymph % (Auto) 22.6 [place] % (Auto) 6.9 Eos % (Auto) 2.5 Baso % (Auto) 0.2 Lymph # (Auto) 2.26 [place] # (Auto) 0.7 H Eos # (Auto) 0.3 Baso # (Auto) 0.0 Abs Immat Gran (auto) 0.09 H Absolute Neuts (auto) 6.7 Absolute Nucleated RBC 0.000 Nucleated RBC % 0.0 Sodium 133 L Potassium 3.7 Chloride 96 L Carbon Dioxide 33 H Anion Gap 4 BUN 34 H Creatinine 0.97 Estim Creat Clear Calc 34 Estimated GFR 54 L Glucose 156 H POC Capillary Glucose 194 H 172 H Calcium 9.5 Total Bilirubin 0.5 AST 31 ALT 18 Alkaline Phosphatase 62 Total Protein 6.0 L Albumin 3.1 L 08/19/24 08/19/24 21:18 16:53 WBC RBC Hgb Hct MCV MCH MCHC RDW Plt Count MPV Immature Gran % (Auto) Neut % (Auto) Lymph % (Auto) [place] % (Auto) Eos % (Auto) Baso % (Auto) Lymph # (Auto) [place] # (Auto) Eos # (Auto) Baso # (Auto) Abs Immat Gran (auto) Absolute Neuts (auto) Absolute Nucleated RBC Nucleated RBC % Sodium Potassium Chloride Carbon Dioxide Anion Gap BUN Creatinine Estim Creat Clear Calc Estimated GFR Glucose POC Capillary Glucose 182 H 223 H Calcium Total Bilirubin AST ALT Alkaline Phosphatase Total Protein Albumin Discharge Plan Discharge Attending physician on discharge: Luis Obrien Consulting providers: Jorge Best; Alpesh Salinas Discharging Clinician: Dea Cornejo Anticipated Discharge Date/Time: 08/20/24 15:28 Patient Disposition: Home, Self-Care Activity: as tolerated Diet: heart healthy and low sodium Patient Instructions: Antibiotic Form, Heart Failure (GEN), Leg Edema (ED), Low-Sodium Diet (GEN), Left-sided and Right-sided Heart Failure (GEN) Patient Language: Lebanese Stand Alone Forms: General Discharge Information Follow-up/Referrals: Antoine Belle, [Primary Care Provider] - 1 Week Discharge Medications: New guaifenesin [Mucus Relief ER] 600 mg Tablet Extended Release 12hr 1,200 mg PO Q12HR Qty: 10 0RF furosemide [Lasix] 40 mg tablet 40 mg PO DAILY Qty: 30 0RF Rx Instructions: 40 mg daily for 5 days then 20 mg daily thereafter. benzonatate 100 mg Capsule 200 mg PO TID Qty: 21 0RF Continued metoprolol succinate 25 mg tablet extended release 24 hr 25 mg PO DAILY pravastatin 80 mg tablet 80 mg PO QHS potassium chloride 10 mEq capsule, extended release 10 meq PO DAILY coQ10 (ubiquinol) [Qunol Rick CoQ10] 100 mg capsule 200 mg PO BID cholecalciferol (vitamin D3) 250 mcg (10,000 unit) capsule 250 mcg PO DAILY vitamin E (dl, acetate) 180 mg (400 unit) capsule 180 mg PO DAILY Q-GEL with Alpha Lipoic Acid 30-50-100 mg-mg-unit capsule 2 cap PO DAILY mecobalamin (vitamin B12) 1 tablet PO .every other day alpha lipoic acid 100 mg capsule 100 mg PO DAILY pioglitazone 45 mg tablet 45 mg PO DAILY Qty: 90 1RF levothyroxine 25 mcg tablet 25 mcg PO DAILY Qty: 90 1RF Discontinued hydrochlorothiazide 25 mg tablet 25 mg PO DAILY Date of admission: 08/13/24 16:49 Primary Care Provider: Antoine Belle Admitting Provider: Chanda Strange Attending physician on admission: Chanda Strange Condition: Stable Quality If No VTE Prophylaxis Answer both mechanical and pharmacologic: Reason no mechanical VTE proph: low risk/not indicated Reason no pharmacologic proph: low risk/not indicated Hospitalist MIPS Heart Failure (Exclusion) Patient has history of Heart Transplant or Left Ventricular Assistive Device?: No IF YES, STOP HERE Heart Failure (Qualifier) Patient has current or prior documentation of LVEF less than or equal to 40%, or mod/servere depressed LVSF?: No IF NO, STOP HERE
--- NOTE | 2024-08-21 12:04 | PCRCNOTE ---
FAXED ORDER,REQUIRED PAPERWORK TO ARRANGE 02 FOR NOC ONLY AT 3L. PT D/C 08/20/24
== END 2024-08-20 16:40 | disposition home or self-care (01) | DRG 871 ==
LOC: ANHED 19:58 → ANH3MEDSUR 20:41 → ANH2MED 22:18
PROVIDERS: Internal Medicine; Internal Medicine Pulmonary Disease; Nurse Practitioner Family; Physician Assistant; Admitting Provider Internal Medicine; Emergency Provider Student in an Organized Health Care Education/Training Program; PCP Internal Medicine; Visit Provider Nurse Practitioner Adult Health
DX: A41.1 Sepsis due to other specified staphylococcus (principal); J12.1 Respiratory syncytial virus pneumonia; J96.01 Acute respiratory failure with hypoxia; R65.20 Severe sepsis without septic shock; D50.9 Iron deficiency anemia, unspecified; E11.9 Type 2 diabetes mellitus without complications; E03.9 Hypothyroidism, unspecified; E53.8 Deficiency of other specified B group vitamins; E78.5 Hyperlipidemia, unspecified; I10 Essential (primary) hypertension; R41.3 Other amnesia; Z90.89 Acquired absence of other organs; Z85.850 Personal history of malignant neoplasm of thyroid; Z20.822 Contact with and (suspected) exposure to COVID-19
CPT/HCPCS: 36415; 70490; 71045; 71046; 80048; 80053; 80061; 82607; 82728; 82746; 82948; 83036; 83540; 83550; 83690; 83735; 83880; 84145; 85025; 85027; 87040; 87181; 87637; 87641; 93005; 94640; 94762; 96365; 96368; 96375; 97110; 97161; 97165; 97530; 97535; 99285; A9270; C8929; G0378; J0692; J0696; J1650; J1815; J1836; J1940; J2919; J3370; J3475; J7120; Q9957